=== PATIENT | male | born 1970 | race Two or more races ===

== ENCOUNTER 2025-01-02 13:08 | Inpatient (IN) | payer MEDICAID, OTHER ==
[~2025-01-02] VITALS: Ht 180.3 cm; Wt 65.6 kg
[2025-01-02] MEDS: POTASSIUM CHL 20MEQ/100ML 100 ML IV SCH (04:00)
--- NOTE | 2025-01-02 13:44 | ECG ---
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
[2025-01-02 15:38] LABS: Hematocrit 24.2 % (41.0-53.0); Hemoglobin 8.2 g/dL (13.5-17.5); Mean Corpuscular Hemoglobin 32.2 pg (28.0-32.0); Mean Corpuscular Volume 94.9 fL (80.0-100.0); Nucleated Red Blood Cells % 0.0 %
--- NOTE | 2025-01-02 15:43 | DVH ---
XY CHEST PORTABLE, HISTORY: sob COMPARISON: XR CHEST 1 VIEW on DOS: 12/08/24, XR CHEST 1 VIEW on DOS: 11/07/24, CT [id number] W /O on DOS: 10/12/24 XR CHEST 1 VIEW on DOS: 12/08/24, XR CHEST 1 VIEW on DOS: 11/07/24, CT [id number] W/O on DOS: TECHNICAL DATA: 1 view of the chest was obtained. FINDINGS: Lines and tubes: Right chest wall dialysis catheter is present with tip in the SVC. Cardiomediastinal silhouette: normal Pulmonary vasculature: normal Lung expansion: normal Lung airspace: normal Lung interstitium: normal Pleura: normal Pneumothorax: no Bones: Unremarkable Other: no IMPRESSION: No acute intrathoracic abnormality.
[2025-01-02 15:49] LABS: Alanine Aminotransferase 16 U/L (7-40); Albumin 3.5 g/dL (3.2-4.8); Anion Gap 19 (5-15); BUN/Creatinine Ratio 7.9 (10.0-20.0); Carbon Dioxide 21 mmol/L (20-31); Total Protein 7.4 g/dL (5.7-8.2)
[2025-01-02 15:50] LABS: Alkaline Phosphatase 749 U/L (46-116); Bilirubin, Total 5.4 mg/dL (0.2-1.0); Blood Urea Nitrogen 32 mg/dL (9-23); Calcium 8.7 mg/dL (8.7-10.4); Chloride 93 mmol/L (98-107); Glucose 224 mg/dL (74-106); Sodium 133 mmol/L (136-145)
[2025-01-02 15:56] LABS: Potassium 2.5 mmol/L (3.5-5.1)
--- NOTE | 2025-01-02 16:05 | ED.PDOC ---
History of Present Illness HPI Comments 54-year-old male came in complaining of left foot ulcer pain. History of liver disease chronic kidney disease dialysis. He does get dialyzed on Wednesday. He he also has a wound in the right foot. His podiatric has a referred the patient to the hospital because he wanted debridement of the left foot. Denies any other symptoms. Chief Complaint: Lower Extremity Time Seen by MD: 13:15 Reviewed Notes: Nurses Notes, Medications, Allergies Allergies: Coded Allergies: NO KNOWN ALLERGIES (Unverified , 01/02/25) Information Source: Patient Mode of Arrival: Wheelchair Severity: Moderate Timing: Days Duration: Since onset Past Medical History PAST MEDICAL HISTORY: DM, ESRD, Denies Surgical History: Denies all surgeries Social History Smoker: Non-Smoker Alcohol: Sober Drugs: Denies Drug Use Constitutional: denies: chills, diaphoresis, fatigue, fever, malaise, sweats, weakness, others EENTM: denies: blurred vision, double vision, ear bleeding, ear discharge, ear drainage, ear pain, ear ringing, eye pain, eye redness, hearing loss, mouth pain, mouth swelling, nasal discharge, nose bleeding, nose congestion, nose pain, photophobia, tearing, throat pain, throat swelling, voice changes, others Respiratory: denies: cough, hemoptysis, orthopnea, SOB at rest, shortness of breath, SOB with excertion, stridor, wheezing, others Cardiovascular: denies: chest pain, dizzy spells, diaphoresis, Dyspnea on exertion, edema, irregular heart beat, left arm pain, lightheadedness, palpitations, PND, syncope, others Gastrointestinal: denies: abdomen distended, abdominal pain, blood streaked bowels, constipated, diarrhea, dysphagia, difficulty swallowing, hematemesis, melena, nausea, poor appetite, poor fluid intake, rectal bleeding, rectal pain, vomiting, others Genitourinary: denies: burning, dysuria, flank pain, frequency, hematuria, incontinence, penile discharge, penile sore, pain, testicle pain, testicle swelling, urgency, others Neurological: denies: dizziness, fainting, headache, left sided numbness, left sided weakness, numbness, paresthesia, pre-existing deficit, right sided numbness, right sided weakness, seizure, speech problems, tingling, tremors, weakness, others Musculoskeletal: denies: back pain, gout, joint pain, joint swelling, muscle pain, muscle stiffness, neck pain, others Integumetry: reports: wounds (Bilateral feet); denies: bruises, change in color, change in hair/nails, dryness, laceration, lesions, lumps, rash, others Allergic/Immunocompromised: denies: Difficulty Healing, Frequent Infections, Hives, Itching, others Hematologic/Lymphatic: denies: anemia, blood clots, easy bleeding, easy bruising, swollen glands, others Endocrine: denies: excessive hunger, excessive sweating, excessive thirst, excessive urination, flushing, intolerance to cold, intolerance to heat, unexplained weight gain, unexplained weight loss, others Psychiatric: denies: anxiety, bipolar disorder, depression, hopeless, panic disorder, schizophrenia, sleepless, suicidal, others Physical Exam General Appearance: Moderate Distress HEENT: Normal ENT Inspection, Pharynx Normal, TMs Normal Neck: Full Range of Motion, Non-Tender, Normal, Normal Inspection Respiratory: Chest Non-Tender, Lungs Clear, No Accessory Muscle Use, No Respiratory Distress, Normal Breath Sounds Cardiovascular: No Edema, No JVD, No Murmur, No Gallop, Normal Peripheral Pulses, Regular Rate/Rhythm Breast Exam: Deferred Gastrointestinal: No Organomegaly, Non Tender, No Pulsatile Mass, Normal Bowel Sounds, Soft Genitalia: Deferred Pelvic: Deferred Rectal: Deferred Extremities: No calf tenderness, No pedal edema Musculoskeletal : Apperance: Normal Neurologic: Alert, No Motor Deficits, No Sensory Deficits Cerebellar Function: NOT DONE Reflexes: NOT DONE Skin: Wounds (Bilateral feet) Lymphatic: No Adenopathy Was a procedure done? Was a procedure done?: No Differential Dx Considerations may include: Cellulitis Osteomyelitis X-Ray, Labs, Meds, VS Vital Signs Date Time Temp Pulse Resp B/P (MAP) Pulse Ox O2 Delivery O2 Flow Rate FiO2 01/02/25 16:41 89 16 100 Room Air* 0 21 01/02/25 16:36 98.6 89 16 137/76 (96) 100 98.6 01/02/25 16:36 89 17 100 Room Air 01/02/25 15:18 98.4 74 16 126/66 (86) 96 98.4 01/02/25 13:24 90 01/02/25 13:12 98.1 93 18 110/56 98 98.1 Lab Test 01/02/25 16:35 01/02/25 16:18 01/02/25 15:18 01/02/25 13:31 Range/Units Lactic Acid Level Pending Troponin I High Sensitivity 7 7 </=54 ng/L White Blood Count 18.2 H 4.4-10.8 10^3/uL Red Blood Count 2.55 L 4.5-5.90 10^6/uL Hemoglobin 8.2 L 13.5-17.5 g/dL Hematocrit 24.2 L 41.0-53.0 % Mean Corpuscular Volume 94.9 80.0-100.0 fL Mean Corpuscular Hemoglobin 32.2 H 28.0-32.0 pg Mean Corpuscular Hemoglobin Concent 33.9 32.0-36.0 g/dL Red Cell Distribution Width 14.5 H 11.8-14.3 % Platelet Count 276 140-450 10^3/uL Mean Platelet Volume 7.5 6.9-10.8 fL Neutrophils (%) (Auto) 87.5 H 37.0-80.0 % Lymphocytes (%) (Auto) 6.7 L 10.0-50.0 % Monocytes (%) (Auto) 3.6 0.0-12.0 % Eosinophils (%) (Auto) 1.6 0.0-7.0 % Basophils (%) (Auto) 0.6 0.0-2.0 % Neutrophils # (Auto) 15.9 H 1.6-8.6 10 ^3/uL Lymphocytes # (Auto) 1.2 0.4-5.4 10 ^3/uL Monocytes # (Auto) 0.7 0-1.3 10 ^3/uL Eosinophils # (Auto) 0.3 0-0.8 10 ^3/uL Basophils # (Auto) 0.1 0-0.2 10 ^3/uL Nucleated Red Blood Cells 0.0 % Sodium Level 133 L 136-145 mmol/L Potassium Level 2.5 *L 3.5-5.1 mmol/L Chloride Level 93 L 98-107 mmol/L Carbon Dioxide Level 21 20-31 mmol/L Anion Gap 19 H 5-15 Blood Urea Nitrogen 32 H 9-23 mg/dL Creatinine 4.05 H 0.700-1.30 mg/dL Glomerular Filtration Rate Calc 17 >90 mL/min BUN/Creatinine Ratio 7.9 L 10.0-20.0 Serum Glucose 224 H 74-106 mg/dL Calcium Level 8.7 8.7-10.4 mg/dL Total Bilirubin 5.4 H 0.2-1.0 mg/dL Aspartate Amino Transferase (AST) 38 13-40 U/L Alanine Aminotransferase (ALT) 16 7-40 U/L Alkaline Phosphatase 749 H 46-116 U/L Total Protein 7.4 5.7-8.2 g/dL Albumin 3.5 3.2-4.8 g/dL POC Glucose 250 H 70-106 mg/dl Patient alert. Vitals stable. Has a wound in bilateral feet. Hyperglycemia. Potassium is low. Establish intravenous access. Was given fluids. Increased anion gap. Sepsis. Chronic kidney disease. Possible osteomyelitis. Was given Zosyn. Was given clindamycin. Explained to the patient. Continue monitoring. Time of 1ST Reevaluation: 16:02 Reevaluation 1ST: Unchanged Patient Education/Counseling: Diagnosis, Treatment, Prognosis Family Education/Counseling: No Family Present SEPSIS Sepsis Screen Date sepsis recognized/suspect: Jan 02, 2025 Time Sepsis recognized/suspect: 1311 Recent Procedure: No On Antibiotic Therapy: No Respiratory Rate >20: No Heart Rate >90: Yes Temp<36 C (96.8 F) or >38.3 C: No SBP <90 or MAP <65 mmHG: No New Acute Mental Status Change: No Is the patient on CPAP, BIPAP,: No Physician Orders Chest Portable (01/02/25 14:55) Urinalysis (01/02/25 14:55) Troponin-I Hs (01/02/25 17:55) Piperacillin-Tazob 3.375gm (Zosyn 3.375g (01/02/25 16:15) Clindamycin 600mg Iv (Cleocin Iv) (01/02/25 16:15) Sodium Chloride 0.9% (01/02/25 16:15) Sodium Chloride 0.9% (01/02/25 16:15) Blood Culture (01/02/25 16:22) Lactic Acid W/ Reflex Order (01/02/25 16:22) Vital Signs Date Time Temp Pulse Resp B/P (MAP) Pulse Ox O2 Delivery O2 Flow Rate FiO2 01/02/25 16:41 89 16 100 Room Air* 0 21 01/02/25 16:36 98.6 89 16 137/76 (96) 100 98.6 01/02/25 16:36 89 17 100 Room Air 01/02/25 15:18 98.4 74 16 126/66 (86) 96 98.4 01/02/25 13:24 90 01/02/25 13:12 98.1 93 18 110/56 98 98.1 Laboratory Tests Test 01/02/25 15:18 01/02/25 16:35 White Blood Count 18.2 10^3/uL (4.4-10.8) H Lactic Acid Level Pending Departure 1 Departure Time of Disposition: 16:04 Impression: Primary Impression: Sepsis, unspecified organism Qualified Codes: A41.9 - Sepsis, unspecified organism Additional Impression: Hyperglycemia Disposition: ADMITTED INPATIENT Admit to: Med Surg Condition: Guarded Critical Care Note Critical Care Time?: Yes (90 min-critical care time only) Stability Stability form required: No Heart Score Heart Score: Heart Score Response (Comments) Value History N/A 0 EKG N/A 0 Age N/A 0 Risk Factors N/A 0 Troponin N/A 0 Total 0 GOLDEN KELLY MD Jan 02, 2025 16:05
[2025-01-02] MEDS: SODIUM CHLORIDE 0.9% 1,000 ML IV ONE ×2 (16:15→18:10)
[2025-01-02 16:41] VITALS: PULSE 89; RESP 16; O2SAT 100
[2025-01-02 17:20] LABS: Lactic Acid w/Reflex 2.4 mmol/L (0.4-2.0)
[2025-01-02] MEDS: CLINDAMYCIN 600MG IV 50 ML IV ONE (17:26)
[2025-01-02] MEDS: PANTOPRAZOLE 40 MG/10 ML VIAL INJ IV ONE (17:53)
[2025-01-02] MEDS: ONDANSETRON HCL 4 MG/2 ML VIAL IV ONE (17:53)
[2025-01-02] MEDS: MORPHINE SULFATE 4 MG/ML SYR/VIAL IV ONE (18:01)
[2025-01-02] MEDS: PIPERACILLIN-TAZOB 3.375GM 100 ML IV ONE (20:47)
[2025-01-02 20:59] LABS: Triglycerides 137.0 mg/dL (< 150)
[2025-01-02 21:00] LABS: Magnesium 1.9 mg/dL (1.6-2.6)
[2025-01-02 21:10] LABS: HDL Cholesterol 37.0 mg/dL (40-59)
[2025-01-02 21:23] LABS: Cholesterol 141.0 mg/dL (< 200)
[2025-01-02 21:25] LABS: INR 1.08 (0.9-1.15); Partial Thromboplastin Time 31.0 SEC (24.5-34.5); Prothrombin Time 11.4 sec (9.3-11.8)
[2025-01-02 21:34] LABS: Lipase 41.0 U/L (12-53)
[2025-01-02] MEDS ORDERED: ACETAMINOPHEN 325 MG TAB PO PRN (22:00)
[2025-01-02] MEDS ORDERED: DEXTROSE (50%) 50ML SYRG IV PRN (22:00)
[2025-01-02] MEDS ORDERED: ENOXAPARIN SOD 40 MG/0.4 ML SYRINGE SC SCH (22:00)
[2025-01-02] MEDS: ACCU-CHEK COMFORT CURVE STRIP VI SCH (22:00)
[2025-01-02] MEDS ORDERED: VANCOMYCIN PER PHARMACY 0 MG IV SCH (22:00)
--- NOTE | 2025-01-02 22:18 | DVHHPRES ---
History of Present Illness Resident Creating Document: NATACHA RAO RESIDENT History of Present Illness This is a 54-year-old male with past medical history of diabetes mellitus, ESRD on dialysis (M, W, F), GERD, liver abscess, presented to the ER for worsening left foot ulcer. Patient went for appointment with Dr. Thornton, where he was informed that has foot ulcers infected and was sent to the ER. Patient complained of worsening pain in foot, which he 1st noticed 1 month ago. He was hospitalized for 1 month at the [facility] for a liver abscess, discharged with no antibiotics nor home medication. He also complained of diarrhea since last 2 weeks, reports loose, watery, runny diarrhea, 6-10 times daily, no blood seen. Previous hospitalization: November 2024 for liver abscess in [facility] for 1 month PMHx: Diabetes mellitus, ESRD on HD sessions, GERD, liver abscess s/p op PSHx: Toe amputation, cholecystectomy, biliary stent Social history: Reports smoking half pack per day since the age of 14 years, alcohol use 2 units daily, reports using methamphetamine and marijuana. Lives in home alone. Full code. Next to kin cousin Alize Villegas Home medication: Reportedly no home medication reconciled after discharge from [facility] Allergic history: No known allergy history Patient was examined at bedside today. he is admitted for further evaluation and management Review of Systems Constitutional: Yes: Chills Gastrointestinal: Diarrhea Musculoskeletal: foot pain Allergies: Coded Allergies: NO KNOWN ALLERGIES (Unverified , 01/02/25) Exam Vital Signs Vital Signs Date Time Temp Pulse Resp B/P (MAP) Pulse Ox O2 Delivery O2 Flow Rate FiO2 01/02/25 18:01 89 16 114/67 01/02/25 18:01 99 01/02/25 16:41 Room Air* 0 21 01/02/25 16:36 98.6 98.6 Exam General: Patient alert and oriented in person, place and time. Patient following commands. HEENT: Bilateral scleral icterus. Normocephalic, atraumatic, moist mucous membranes Respiratory/pulmonary: Clear lungs bilaterally, vesicular murmurs present in almost all lung ramirez, no associated crackles or wheezes. Cardiovascular: Normal heart sounds S1 and S2 with no associated murmurs Abdomen: Abdomen nondistended, there is no pain to palpation in any of the abdominal quadrants, no palpable masses. Extremities: Inspection of bilateral upper extremity: Multiple scabbing wounds. Inspection bilateral lower extremity: Loss of hair, bilateral plantar heel ulcers. Left foot heel wound is necrotic, dark with eschar, surrounded by erythema. Eschar on left great toe wound. Temperature same in bilateral lower extremities. Skin: No rashes or pruritus, there is no sacral edema present at this time. Neurological: Intact cranial nerves with no focal neurologic deficits Labs/Xrays Labs Test 01/02/25 21:58 01/02/25 20:47 01/02/25 18:28 01/02/25 15:18 Range/Units Lactic Acid Level 1.8 0.4-2.0 mmol/L Prothrombin Time 11.4 9.3-11.8 sec Prothrombin Time INR 1.08 0.9-1.15 Activated Partial Thromboplast Time 31.0 24.5-34.5 SEC Hemoglobin A1c 5.4 <5.7 % A1C Serum Osmolality 301 H 278-298 mOsm/kg Phosphorus Level 5.1 2.4-5.1 mg/dL Magnesium Level 1.9 1.6-2.6 mg/dL Troponin I High Sensitivity 7 </=54 ng/L C-Reactive Protein High Sensitivity 19.47 H <1.0 mg/dL Triglycerides Level 137 < 150 mg/dL Cholesterol Level 141 < 200 mg/dL LDL Cholesterol 85 < 100 mg/dL HDL Cholesterol 37 L 40-59 mg/dL Lipase 41 12-53 U/L Vitamin B12 Level 1072 H 211-911 pg/mL Vitamin D 25-Hydroxy 32.0 30.0-100 ng/mL Thyroid Stimulating Hormone (TSH) 4.95 H 0.55-4.78 uIU/mL White Blood Count 18.2 H 4.4-10.8 10^3/uL Red Blood Count 2.55 L 4.5-5.90 10^6/uL Hemoglobin 8.2 L 13.5-17.5 g/dL Hematocrit 24.2 L 41.0-53.0 % Mean Corpuscular Volume 94.9 80.0-100.0 fL Mean Corpuscular Hemoglobin 32.2 H 28.0-32.0 pg Mean Corpuscular Hemoglobin Concent 33.9 32.0-36.0 g/dL Red Cell Distribution Width 14.5 H 11.8-14.3 % Platelet Count 276 140-450 10^3/uL Mean Platelet Volume 7.5 6.9-10.8 fL Neutrophils (%) (Auto) 87.5 H 37.0-80.0 % Lymphocytes (%) (Auto) 6.7 L 10.0-50.0 % Monocytes (%) (Auto) 3.6 0.0-12.0 % Eosinophils (%) (Auto) 1.6 0.0-7.0 % Basophils (%) (Auto) 0.6 0.0-2.0 % Neutrophils # (Auto) 15.9 H 1.6-8.6 10 ^3/uL Lymphocytes # (Auto) 1.2 0.4-5.4 10 ^3/uL Monocytes # (Auto) 0.7 0-1.3 10 ^3/uL Eosinophils # (Auto) 0.3 0-0.8 10 ^3/uL Basophils # (Auto) 0.1 0-0.2 10 ^3/uL Nucleated Red Blood Cells 0.0 % Sodium Level 133 L 136-145 mmol/L Potassium Level 2.5 *L 3.5-5.1 mmol/L Chloride Level 93 L 98-107 mmol/L Carbon Dioxide Level 21 20-31 mmol/L Anion Gap 19 H 5-15 Blood Urea Nitrogen 32 H 9-23 mg/dL Creatinine 4.05 H 0.700-1.30 mg/dL Glomerular Filtration Rate Calc 17 >90 mL/min BUN/Creatinine Ratio 7.9 L 10.0-20.0 Serum Glucose 224 H 74-106 mg/dL Calcium Level 8.7 8.7-10.4 mg/dL Total Bilirubin 5.4 H 0.2-1.0 mg/dL Aspartate Amino Transferase (AST) 38 13-40 U/L Alanine Aminotransferase (ALT) 16 7-40 U/L Alkaline Phosphatase 749 H 46-116 U/L Total Protein 7.4 5.7-8.2 g/dL Albumin 3.5 3.2-4.8 g/dL Test 01/02/25 13:31 Range/Units POC Glucose 250 H 70-106 mg/dl SEPSIS Sepsis Screen Date sepsis recognized/suspect: Jan 02, 2025 Time Sepsis recognized/suspect: 1640 Recent Procedure: No On Antibiotic Therapy: No Respiratory Rate >20: No Heart Rate >90: No Temp<36 C (96.8 F) or >38.3 C: No SBP <90 or MAP <65 mmHG: No New Acute Mental Status Change: No Is the patient on CPAP, BIPAP,: No Physician Orders Chest Portable (01/02/25 14:55) Sodium Chloride 0.9% (01/02/25 16:15) Blood Culture (01/02/25 16:22) Drug Screen (01/02/25 20:24) Urinalysis (01/02/25 20:24) Covid19 Antigen Cristina (01/02/25 ) Mrsa Screen (01/02/25 20:26) * Wound Consult (01/02/25 ) Wound Culture W/ Gs (01/02/25 20:29) Admit (01/02/25 21:51) Allergies (01/02/25:51) Code Status (01/02/25 21:51) 0.9% Ns 1000 Ml (01/02/25 22:00) Zinc Sulfate (01/03/25 10:00) Ascorbic Acid Tablet (Vitamin C Tablet) (01/02/25 22:00) Complete Blood Count (01/03/25 04:00) Comprehensive Metabolic Panel (01/03/25 04:00) Npo (Nothing By Mouth) Diet (01/03/25 Breakfast) Condition: Serious (01/02/25 21:51) Acetaminophen Tablet (Tylenol Tablet) (01/02/25 22:00) Lovenox 40mg (01/02/25 22:00) Oxygen By Nasal Cannula (01/02/25 21:51) Stat Ekg For Chest Pain (01/02/25 21:51) Notify Md Of Changes From Base (01/02/25 21:51) Truck Repair Service Estimator For 24 Hours (01/02/25 21:51) Emergency Dysrhythmia Protocol (01/02/25 21:51) Rhythm Strips Once Every Shift (01/02/25 21:51) Potassium Chl Adama Kcl (01/02/25 22:00) Zosyn Extended Infusion (01/02/25 22:00) Vancomycin (01/02/25 22:00) Glucose Blood (Accu-Chek Comfort Curve T (01/02/25 22:00) Mild Sliding Scale (01/02/25 22:00) Dextrose 50% Syringe (01/02/25 22:00) NS (01/02/25 22:00) Stool Bacterial Culture (01/02/25 21:51) Stool Wbc (01/02/25 21:51) LIVER (01/02/25 21:51) *Podiatry Consult Musson(Dvmg) (01/02/25 21:51) Electrocardigram (01/02/25 21:51) Electrocardigram (01/02/25 22:51) Electrocardigram (01/03/25 00:51) Reticulocyte Count (01/02/25 21:51) Haptoglobin (01/02/25 21:51) Ferritin (01/02/25 21:51) Iron Panel (01/02/25 21:51) Folate (Folic Acid) (01/02/25 21:51) Ct L Foot Wo Contrast (01/02/25 21:51) Vital Signs Date Time Temp Pulse Resp B/P (MAP) Pulse Ox O2 Delivery O2 Flow Rate FiO2 01/02/25 18:01 89 16 114/67 01/02/25 18:01 89 16 114/67 (83) 99 01/02/25 16:41 89 16 100 Room Air* 0 21 01/02/25 16:36 98.6 89 16 137/76 (96) 100 98.6 01/02/25 16:36 89 17 100 Room Air 01/02/25 15:18 98.4 74 16 126/66 (86) 96 98.4 Laboratory Tests Test 01/02/25 15:18 01/02/25 16:35 01/02/25 18:28 01/02/25 20:47 White Blood Count 18.2 10^3/uL (4.4-10.8) H Lactic Acid Level 2.4 mmol/L (0.4-2.0) *H 2.4 mmol/L (0.4-2.0) *H 1.8 mmol/L (0.4-2.0) Medications Medications Dose Ordered Sig/Vargas Route Start Time Stop Time Status Last Admin Dose Admin Clindamycin Phosphate 50 ml @ 50 mls/hr ONCE ONCE IV 01/02/25 16:15 01/02/25 17:14 DC 01/02/25 17:26 50 MLS/HR Morphine Sulfate 4 mg ONCE ONCE IV 01/02/25 17:30 01/02/25 17:31 DC 01/02/25 18:01 4 MG Ondansetron HCl 4 mg ONCE ONCE IV 01/02/25 17:30 01/02/25 17:31 DC 01/02/25 17:53 4 MG Pantoprazole Sodium 40 mg ONCE ONCE IV 01/02/25 17:30 01/02/25 17:31 DC 01/02/25 17:53 40 MG Piperacillin Sod/ Tazobactam Sod 100 ml @ 100 mls/hr ONCE ONCE IV 01/02/25 16:15 01/02/25 17:14 DC 01/02/25 20:47 100 MLS/HR Sodium Chloride 1,000 ml @ 150 mls/hr Q6H40M ONCE IV 01/02/25 16:15 01/02/25 22:54 01/02/25 19:10 150 MLS/HR Sodium Chloride 1,000 ml @ 1,000 mls/hr Q1H ONCE IV 01/02/25 16:15 01/02/25 17:14 DC 01/02/25 16:15 1,000 MLS/HR Assessment/Plan Assessment/Plan Severe Sepsis due to below Bilateral foot ulcers with cellulitis and probable osteomyelitis Rule out PAD Diabetic foot ulcer Lactic acidosis, neutrophilic leukocytosis Wound culture, Blood culture, MRSA screening ordered Arterial Doppler ordered CT left foot shows soft tissue gas, stranding, and swelling about the plantar aspect of the forefoot. IV vancomycin, Zosyn, synchronized with HD sessions IV fluid maintenance, holding off bolus to avoid fluid overload in context of ESRD with dialysis Wound care consulted Podiatry consulted History of liver abscess Acute gastroenteritis Transaminitis with elevated ALP Labs showed neutrophilic leukocytosis Ultrasound liver shows stent in the common bile duct. Gas is seen in the left hepatic lobe, which may be referable to pneumobilia IV fluids IV ceftriaxone 1 g daily IV metronidazole 500 mg 3 times daily Monitor electrolytes, avoid opioids Clear liquid diet; Advance diet as tolerated Hepatitis panel ordered Normocytic normochromic anemia, likely due to anemia of chronic disease Low iron, TIBC and% saturation. Normal vitamin B12 and increased retic count ESRD on hemodialysis Hypovolemic Hyponatremia IV fluid maintenance, holding off bolus to avoid fluid overload in context of CKD with dialysis Discussed avoiding nephrotoxins like NSAIDS, contrast Low salt diet, maintain hydration Repeat BMP Diabetes mellitus type 2 Hyperglycemia Sliding scale insulin A1c 5.4 Monitor blood glucose Diabetes education Advanced to Diabetic diet when appropriate Polysubstance abuse Toxicology screen pending Counseled for more than 12 minutes to quit substance abuse and offered resources DIET: NPO DVT PROPHYLAXIS: Lovenox GI PROPHYLAXIS: Protonix CODE STATUS: Goals of care discussed with patient at bedside for more than 38 minutes. Full code DISPOSITION: Med/surge Patient's status and plan discussed with the patient. Case discussed with Dr. Bravo Plan discussed with: Patient, Other (Nurses) My Orders Orders - NATACHA RAO RESIDENT Procedure Category Date Status Time Drug Screen LAB 01/02/25 Logged 20:24 Urinalysis LAB 01/02/25 Logged 20:24 Covid19 Antigen Cristina LAB 01/02/25 In Process Mrsa Screen [place] 01/02/25 In Process 20:26 * Wound Consult CONS 01/02/25 Transmitted Wound Culture W/ Gs [place] 01/02/25 Logged 20:29 Admit ADMIT 01/02/25 Verified 21:51 Allergies PAULO 01/02/25 Verified 21:51 Code Status CODE 01/02/25 Verified 21:51 0.9% Ns 1000 Ml PHA 01/02/25 Verified 22:00 Zinc Sulfate PHA 01/03/25 Verified 10:00 Ascorbic Acid Tablet PHA 01/02/25 Verified (Vitamin C Tablet) 22:00 Complete Blood Count LAB 01/03/25 Verified 04:00 Comprehensive LAB 01/03/25 Verified Metabolic Panel 04:00 Npo (Nothing By DIET 01/03/25 Verified Mouth) Diet Breakfast Condition: Serious [facility] 01/02/25 Verified 21:51 Acetaminophen Tablet PHA 01/02/25 Verified (Tylenol Tablet) 22:00 Lovenox 40mg PHA 01/02/25 Verified 22:00 Oxygen By Nasal RT 01/02/25 Verified Cannula 21:51 Stat Ekg For Chest [facility] 01/02/25 Verified Pain 21:51 Notify Md Of Changes [facility] 01/02/25 Verified From Base 21:51 Truck Repair Service Estimator For [facility] 01/02/25 Verified 24 Hours 21:51 Emergency Dysrhythmia [facility] 01/02/25 Verified Protocol 21:51 Rhythm Strips Once [facility] 01/02/25 Verified Every Shift 21:51 Potassium Chl Adama PHA 01/02/25 Verified KCL 22:00 Zosyn Extended [facility] 01/02/25 Verified Infusion 22:00 Vancomycin PHA 01/02/25 Verified 22:00 Glucose Blood [facility] 01/02/25 Verified (Accu-Chek Comfort 22:00 Mild Sliding Scale [facility] 01/02/25 Verified 22:00 Dextrose 50% Syringe PH[facility] 01/02/25 Verified 22:00 NS PHA 01/02/25 Verified 22:00 Stool Bacterial [place] 01/02/25 Verified Culture 21:51 Stool Wbc LAB 01/02/25 Verified 21:51 LIVER US 01/02/25 Verified 21:51 *Podiatry Consult CONS 01/02/25 Verified Musson(Dvmg) 21:51 Electrocardigram EKG 01/02/25 Verified 21:51 Electrocardigram EKG 01/02/25 Verified 22:51 Electrocardigram EKG 01/03/25 Verified 00:51 Reticulocyte Count LAB 01/02/25 Verified 21:51 Haptoglobin LAB 01/02/25 Verified 21:51 Ferritin LAB 01/02/25 Verified 21:51 Iron Panel LAB 01/02/25 Verified 21:51 Folate (Folic Acid) LAB 01/02/25 Verified 21:51 Ct L Foot Wo Contrast CT 01/02/25 Verified 21:51 Date of Service: Jan 02, 2025 Billing Provider: PATRICIA GIVENS MD Common Visit Codes: 31401-EHGLJGO INP/OBS CARE (HIGH) Secondary Visit Codes: 51137-[id number] CARE PLAN 30 MINUTES NATACHA RAO RESIDENT Jan 02, 2025 22:18 TO MCDERMOTT RESIDENT Jan 03, 2025 08:08
[2025-01-02] MEDS: SODIUM CHLORIDE 0.9% 500 ML IV ONE (22:31)
[2025-01-02] MEDS: ASCORBIC ACID 500 MG TAB PO SCH (22:33)
[2025-01-02 22:56] LABS: Ferritin 20.2 ng/mL (22-322)
[2025-01-02 23:08] LABS: Iron 30.0 ug/dL (65-175); Total Iron Binding Capacity 159.0 ug/dL (250-425)
[2025-01-02 23:13] LABS: COVID19 ANTIGEN SOFIA FIA NEGATIVE (NEGATIVE)
--- NOTE | 2025-01-02 23:50 | DVH ---
ULTRASOUND DOPPLER CLINICAL HISTORY: Sepsis with history of liver abscess TECHNIQUE: Doppler examination of the abdomen was performed. COMPARISON: CT ABDOMEN PELVIS WITH on DOS: 12/08/24, US ABDOMEN on DOS: 12/08/24, US GALLBLADDER on DOS: 11/08/24, CT ABDOMEN PELVIS WITHOUT on DOS: 11/08/24, CT [id number] W/O on DOS: 10/12/24 FINDINGS: The liver measures 14.7 cm. Small hyperechoic foci are seen within the liver suggesting gas . No focal lesion. Prior cholecystectomy. The common bile duct measures 7 mm, slightly dilated. A stent is seen in the c ommon bile duct. Visualized portions of the pancreas are unremarkable. The right kidney measures 8.5 cm without hydronephrosis, stones, or renal mass. IMPRESSION: 1. Prior cholecystectomy with stent seen in the common bile duct. Gas is seen in the left hepatic lob e, which may be referable to pneumobilia, though portal venous gas cannot be excluded. Consider CT i n further assessment as clinically indicated.
[2025-01-03] VITALS (9 sets, daily range): BP systolic 101–141; BP diastolic 60–82; PULSE 60–97; RESP 16–100; TEMP 97.6–97.8; O2SAT 99–100
--- NOTE | 2025-01-03 00:16 | DVH ---
EXAM: CT CT L FOOT WO CONTRAST HISTORY: Diabetic foot ulcer, rule out osteomyelitis COMPARISON: CT LOWER EXTREMITY WITHOUT DOMENICO on DOS: 11/07/24, XR FOOT 3+ VIEWS on DOS: 03/17/22 TECHNIQUE: Noncontrast axial CT images of the left foot were performed. Sagittal and coronal reformat savage images were obtained. This CT exam was performed using one or more of the following dose reductio n techniques: Automated exposure control, adjustment of the mA and/or kv according to patient size, o r the use of iterative reconstruction techniques. Radiation Dose Information: CT Dose: CTDI volume is 7.75 mGy. Dose-length product is 2.73 mGy*cm FINDINGS: There is soft tissue gas, stranding, and swelling about the plantar aspect of the forefoot. No defin ite osseous erosion is seen. No acute displaced fracture. The alignment appears maintained. IMPRESSION: 1. Findings as above suggestive of infectious / inflammatory process involving the plantar aspect of the foot. No definite osseous erosion, though MRI would be more sensitive for osteomyelitis as clini kathia indicated. Necrotizing fasciitis cannot be excluded on the basis of CT. Further clinical moose elation is suggested.
[2025-01-03] MEDS: SODIUM CHLORIDE 0.9% 1,000 ML IV SCH (00:44)
[2025-01-03 01:00] LABS: Urine Protein, UAD 2+ (Negative)
[2025-01-03] MEDS: PIPERACILLIN-TAZOB 3.375GM 100 ML IV SCH (01:00)
[2025-01-03] MEDS: InsuLIN REG 1unit/0.01ml Soln (100units/ml) SC SCH (01:04)
[2025-01-03 01:47] LABS: Cannabinoid Screen, Urine Neg (NEGATIVE); Opiate Scree,Urine Neg (NEGATIVE)
[2025-01-03 01:50] LABS: Amphetamine Screen, Urine Pos (NEGATIVE); Barbiturate Scree,Urine Neg (NEGATIVE); Benzodiazephine Screen, Urine Neg (NEGATIVE); Cocaine Screen, Urine Neg (NEGATIVE); Phencyclidine Screen, Urine Neg (NEGATIVE)
[2025-01-03] MEDS ORDERED: MORPHINE SULFATE INJ 2 MG/ml SYRG IV PRN (02:15)
[2025-01-03 04:35] LABS: Nucleated Red Blood Cells % 0.1 %
[2025-01-03 04:38] LABS: Hematocrit 25.6 % (41.0-53.0); Hemoglobin 8.1 g/dL (13.5-17.5); Mean Corpuscular Hemoglobin 32.6 pg (28.0-32.0); Mean Corpuscular Volume 103.7 fL (80.0-100.0)
[2025-01-03 04:46] LABS: Alanine Aminotransferase 15 U/L (7-40); Anion Gap 18 (5-15); BUN/Creatinine Ratio 8.9 (10.0-20.0); Chloride 101 mmol/L (98-107); Glucose 102 mg/dL (74-106); Total Protein 6.3 g/dL (5.7-8.2)
[2025-01-03 04:56] LABS: Albumin 3.1 g/dL (3.2-4.8); Alkaline Phosphatase 696 U/L (46-116); Bilirubin, Total 4.5 mg/dL (0.2-1.0); Blood Urea Nitrogen 33 mg/dL (9-23); Calcium 8.2 mg/dL (8.7-10.4); Carbon Dioxide 16 mmol/L (20-31); Sodium 135 mmol/L (136-145)
[2025-01-03 04:57] LABS: Potassium 2.5 mmol/L (3.5-5.1)
--- NOTE | 2025-01-03 09:47 | DVHCONRES ---
Date Seen: Jan 03, 2025 Reason for Consultation Left foot wound History of Present Illness This is a 54-year-old male with past medical history of diabetes mellitus, ESRD on dialysis (M, W, F), GERD, liver abscess, presented to the ER for worsening left foot ulcer. Patient went for appointment with Dr. Skinner, where he was informed that has foot ulcers infected and was sent to the ER. Patient complained of worsening pain in foot, which he 1st noticed 1 month ago. He was hospitalized for 1 month at the [facility] for a liver abscess, discharged with no antibiotics nor home medication. He also complained of diarrhea since last 2 weeks, reports loose, watery, runny diarrhea, 6-10 times daily, no blood seen. Past Medical History See H&P Past Surgical History See H&P Family History: Diabetes mellitus G8 MOTHER, Allergies: Coded Allergies: NO KNOWN ALLERGIES (Unverified , 01/02/25) Home Meds No Active Prescriptions or Reported Meds Current Medications Current Medications Medications (Trade) Dose Ordered Sig/Vargas Route PRN Reason Start Time Stop Time Status Last Admin Sodium Chloride 1,000 ml @ 120 mls/hr Q8H20M IV 01/02/25 22:00 01/03/25 06:24 Zinc Sulfate 220 mg DAILY PO 01/03/25 10:00 Ascorbic Acid (Vitamin C Tablet) 500 mg BID PO 01/02/25 22:00 01/03/25 01:05 Acetaminophen (Tylenol Tablet) 650 mg Q6HP PRN PO PAIN SCALE 1-3 OR TEMP>100.4 01/02/25 22:00 Enoxaparin Sodium (Lovenox) 40 mg DAILY SC 01/02/25 22:00 01/02/25 22:36 DC Potassium Chloride 100 ml @ 50 mls/hr Q2H IV 01/02/25 22:00 01/03/25 03:59 DC 01/03/25 06:00 Piperacillin Sod/ Tazobactam Sod 100 ml @ 25 mls/hr Q12H IV 01/03/25 01:00 Vancomycin HCl 0 ml @ 0 mls/hr UD IV 01/02/25 22:00 Diagnostic Test (Pha) (Accu-Chek Comfort Curve T) 1 strip ACHS 01/02/25 22:00 01/02/25 22:00 Insulin Human Regular (InsuLIN R) ACHS SC 01/02/25 22:00 01/03/25 01:04 Dextrose 50 ml UD PRN IV Blood Sugar LESS THAN 60 01/02/25 22:00 Heparin Sodium (Porcine) 5,000 units Q12HR SC 01/03/25 10:00 Morphine Sulfate 2 mg Q6HPRN PRN IV SEVERE PAIN (7-10 PAIN SCALE) 01/03/25 02:15 Vital Signs Vital Signs Date Time Temp Pulse Resp B/P (MAP) Pulse Ox O2 Delivery O2 Flow Rate FiO2 01/03/25 05:00 97.6 71 18 141/82 (101) 99 97.6 01/03/25 04:57 Room Air* 0 21 Physical Exam Dermatological: Skin is dry with mild erythema and some maceration around the wound site No gross deformities noted Mild non-pitting edema present bilaterally Left foot plantar wound with fluctuance and purulent drainage Vascular: Dorsalis pedis and posterior tibial pulses are 1+ bilaterally Capillary refill is under 2 seconds Skin temperature is warm bilaterally Neurologic: Protective sensation is absent on the plantar forefoot bilaterally Monofilament testing reveals decreased sensation in multiple plantar sites Musculoskeletal: Range of motion at the ankle and MTP joints is within normal limits. Strength is 5/5 in all tested muscle groups. Gait is antalgic due to offloading of the affected limb. Labs/Diagnostic Data Labs Test 01/03/25 08:30 01/03/25 03:48 01/03/25 00:42 01/03/25 00:00 Range/Units White Blood Count 17.7 H 4.4-10.8 10^3/uL Red Blood Count 2.47 L 4.5-5.90 10^6/uL Hemoglobin 8.1 L 13.5-17.5 g/dL Hematocrit 25.6 L 41.0-53.0 % Mean Corpuscular Volume 103.7 #H 80.0-100.0 fL Mean Corpuscular Hemoglobin 32.6 H 28.0-32.0 pg Mean Corpuscular Hemoglobin Concent 31.5 L 32.0-36.0 g/dL Red Cell Distribution Width 15.2 H 11.8-14.3 % Platelet Count 258 140-450 10^3/uL Mean Platelet Volume 7.2 6.9-10.8 fL Neutrophils (%) (Auto) 80.5 H 37.0-80.0 % Lymphocytes (%) (Auto) 11.5 10.0-50.0 % Monocytes (%) (Auto) 3.6 0.0-12.0 % Eosinophils (%) (Auto) 3.8 0.0-7.0 % Basophils (%) (Auto) 0.6 0.0-2.0 % Neutrophils # (Auto) 14.2 H 1.6-8.6 10 ^3/uL Lymphocytes # (Auto) 2.0 0.4-5.4 10 ^3/uL Monocytes # (Auto) 0.6 0-1.3 10 ^3/uL Eosinophils # (Auto) 0.7 0-0.8 10 ^3/uL Basophils # (Auto) 0.1 0-0.2 10 ^3/uL Nucleated Red Blood Cells 0.1 % Sodium Level 135 L 136-145 mmol/L Chloride Level 101 98-107 mmol/L Carbon Dioxide Level 16 L 20-31 mmol/L Anion Gap 18 H 5-15 Blood Urea Nitrogen 33 H 9-23 mg/dL Creatinine 3.72 H 0.700-1.30 mg/dL Glomerular Filtration Rate Calc 19 >90 mL/min BUN/Creatinine Ratio 8.9 L 10.0-20.0 Serum Glucose 102 # 74-106 mg/dL Calcium Level 8.2 L 8.7-10.4 mg/dL Total Bilirubin 4.5 H 0.2-1.0 mg/dL Aspartate Amino Transferase (AST) 35 13-40 U/L Alanine Aminotransferase (ALT) 15 7-40 U/L Alkaline Phosphatase 696 H 46-116 U/L Total Protein 6.3 5.7-8.2 g/dL Albumin 3.1 L 3.2-4.8 g/dL POC Glucose 203 H 70-106 mg/dl Urine Color Yellow Yellow Urine Clarity Clear Clear Urine pH 6.0 5.0-9.0 Urine Specific [place] 1.011 1.001-1.035 Urine Protein 2+ H Negative Urine Ketones Negative Negative Urine Blood 1+ H Negative /uL Urine Nitrite Negative Negative Urine Bilirubin Negative Negative Urine Urobilinogen Normal Negative mg/dL Urine Leukocyte Esterase Negative Negative /uL Urine RBC 6 0 - 3 /hpf Urine Microscopic WBC 4 H 0-3 /HPF Urine Squamous Epithelial Cells Few <5 /hpf Urine Bacteria None seen None Seen /hpf Urine Glucose 4+ H Normal mg/dL Urine Opiates Screen Neg NEGATIVE Urine Fentanyl Screen Neg NEGATIVE Urine Barbiturates Screen Neg NEGATIVE Urine Phencyclidine Screen Neg NEGATIVE Urine Amphetamines Screen Pos NEGATIVE Urine Benzodiazepines Screen Neg NEGATIVE Urine Cocaine Screen Neg NEGATIVE Urine Cannabinoids Screen Neg NEGATIVE Test 01/02/25 22:47 01/02/25 21:58 01/02/25 20:47 01/02/25 18:28 Range/Units Reticulocyte Count (auto) 4.13 H 0.5-1.5 % Influenza Type A Antigen Negative Negative Influenza Type B Antigen Negative Negative SARS-CoV-2 Antigen (Rapid) Negative NEGATIVE Lactic Acid Level 1.8 0.4-2.0 mmol/L Prothrombin Time 11.4 9.3-11.8 sec Prothrombin Time INR 1.08 0.9-1.15 Activated Partial Thromboplast Time 31.0 24.5-34.5 SEC Hemoglobin A1c 5.4 <5.7 % A1C Serum Osmolality 301 H 278-298 mOsm/kg Phosphorus Level 5.1 2.4-5.1 mg/dL Magnesium Level 1.9 1.6-2.6 mg/dL Ferritin 20.2 L 22-322 ng/mL Troponin I High Sensitivity 7 </=54 ng/L C-Reactive Protein High Sensitivity 19.47 H <1.0 mg/dL Triglycerides Level 137 < 150 mg/dL Cholesterol Level 141 < 200 mg/dL LDL Cholesterol 85 < 100 mg/dL HDL Cholesterol 37 L 40-59 mg/dL Lipase 41 12-53 U/L Vitamin B12 Level 1072 H 211-911 pg/mL Vitamin D 25-Hydroxy 32.0 30.0-100 ng/mL Folic Acid 13.14 >5.38 ng/mL Thyroid Stimulating Hormone (TSH) 4.95 H 0.55-4.78 uIU/mL Test 01/02/25 15:18 Range/Units Iron Level 30 L 65-175 ug/dL Total Iron Binding Capacity 159 L 250-425 ug/dL Percent Iron Saturation 18.9 L 20-55 % Problems(with codes): (1) Hyperglycemia (2) Sepsis, unspecified organism Plan/Recommendation ASSESSMENT: Patient is a 54 year old seen on the floor for a worsening ulcer PLAN: - The patients chart was reviewed, clinical findings were discussed with the patient, the etiologies of the conditions were discussed in detail, and a treatment plan was agreed to at this time, with both oral and written instructions provided. - reviewed advanced imaging - discussed plan is to perform an incision and drainage - patient has been NPO since midnight - take him to the OR today - we will get cultures in the OR - can weightbear as tolerated in postoperative shoe All questions were answered and concerns addressed to the patient's satisfaction. The patient was given the phone number to the clinic and was told how to make contact with the clinic should any concerns or questions arise. Patient understands that if any questions or concerns arise prior to the next appointment, we should be contacted immediately. FOLLOW-UP: Continue to follow while inpatient Plan discussed with: Patient Visit Coding Podiatry Date of Service if different f: Jan 03, 2025 Billing Provider: MANUEL SKINNER DPM Podiatry Common Visit Codes: CONSULT ONLY Podiatry Consult Codes: [id number]/[id number] NEW/EST HI 80 MANUEL SKINNER DPM Jan 03, 2025 09:47
[2025-01-03] MEDS: HEPARIN SODIUM (PORCINE) 5000 UNITS/ML 1ML VIAL SC SCH (10:00)
[2025-01-03] MEDS: ZINC SULFATE 220mg CAP or TAB PO SCH (10:00)
--- NOTE | 2025-01-03 10:10 | DVH ---
Bilateral Lower Extremity Arterial Duplex Clinical History: PAD Comparison: US VENOUS EXTREMITY LOWER LTD on DOS: 11/08/24, RIGHT US VENOUS EXTREMITY UNILAT on DOS: Technique: Duplex Doppler evaluation including color Doppler and spectral/pulsed waveform analysis of the lower extremity arteries was performed. Findings: RIGHT: Peak systolic velocities are as follows: 397 cm/sec in the dorsalis pedis. Nonvisualization of flow in the right posterior tibial artery. All other velocities are less than 150 cm/sec. The waveforms are monophasic with diastolic flow. LEFT: Peak systolic velocities are as follows: Less than 150 cm/sec. Dorsalis pedis is not visualized. The waveforms are monophasic with diastolic flow. IMPRESSION: Greater than 75% stenosis of the right dorsalis pedis based on peak systolic velocity criteria. Nonvisualization of the right posterior tibial artery and left dorsalis pedis. Bilateral monophasic arterial waveforms are suggestive of underlying peripheral arterial disease. REFERENCE VALUES, [facility]) vascular Imaging Lab Criteria: Peak systolic velocity rang es (in cm/sec) are as follows: <150 cm/s - <20 % stenosis 150-200 cm/s - 20-49% stenosis 200-300 cm/s - 50-75% stenosis >300 cm/s -> 75% stenosis
[2025-01-03] MEDS: POTASSIUM CHL 20MEQ/100ML 100 ML IV ONE (10:23)
--- NOTE | 2025-01-03 11:21 | DVHPNRES ---
Progress Note Date Seen: Jan 03, 2025 Resident Creating Document: TAE AWAD RESIDENT Medical Necessity Reason Pt with a Central, PICC or Fol: No Subjective Review of Systems Patient is 54-year-old male with past medical history of diabetes mellitus, ESRD on dialysis (M, W, F), GERD, liver abscess, presented to the ER for worsening left foot ulcer. Patient went for appointment with Dr. Thornton, where he was informed that has foot ulcers infected and was sent to the ER. Patient complained of worsening pain in foot, which he 1st noticed 1 month ago. He was hospitalized for 1 month at the [facility] for a liver abscess, discharged with no antibiotics nor home medication. He also complained of diarrhea since last 2 weeks, reports loose, watery, runny diarrhea, 6-10 times daily, no blood seen. Patient's lab workup revealed leukocytosis with WBC 18.2, anemia with a hemoglobin 8.2, hypokalemia potassium 2.5, increased anion gap 19, serum creatinine 4.05, GFR 17, BUN 33, lactic acidosis with lactic acid 2.4, 30, ferritin 20.2, TIBC 159, UDS positive for amphetamine. Patient tested negative for influenza type a and B, COVID-19, hepatitis-B surface antigen, hepatitis-C antibody. CT left foot revealed- Findings as above suggestive of infectious / inflammatory process involving the plantar aspect of the foot. No definite osseous erosion, though MRI would be more sensitive for osteomyelitis as clinically indicated. Necrotizing fasciitis cannot be excluded on the basis of CT. Ultrasound of the liver revealed- Prior cholecystectomy with stent seen in the common bile duct. Gas is seen in the left hepatic lobe, which may be referable to pneumobilia, though portal venous gas cannot be excluded. Arterial Doppler of the bilateral lower extremity revealed-Greater than 75% stenosis of the right dorsalis pedis based on peak systolic velocity criteria. Nonvisualization of the right posterior tibial artery and left dorsalis pedis. Bilateral monophasic arterial waveforms are suggestive of underlying peripheral arterial disease. Previous hospitalization: November 2024 for liver abscess in [facility] for 1 month PMHx: Diabetes mellitus, ESRD on HD sessions, GERD, liver abscess s/p op PSHx: Toe amputation, cholecystectomy, biliary stent Social history: Reports smoking half pack per day since the age of 14 years, alcohol use 2 units daily, reports using methamphetamine and marijuana. Lives in home alone. Full code. Next to kin cousin Alize Villegas Home medication: Reportedly no home medication reconciled after discharge from [facility] Allergic history: No known allergy history Patient was seen today at bedside. Labs and chart reviewed. Patient has a wound on the bilateral foot especially gangrenous change in the left food, absence of bilateral ADP. Patient was seen by Podiatry Dr. Wynn, pending for surgical intervention. Pending blood culture, wound culture, stool bacterial culture, respiratory culture, C diff, MRSA screening Objective vital signs Vital Sign Date Time Temp Pulse Resp B/P (MAP) Pulse Ox O2 Delivery O2 Flow Rate FiO2 01/03/25 08:57 97.6 71 18 112/65 (81) 100 97.6 01/03/25 04:57 Room Air* 0 21 Total Intake and Output 01/02/25 01/02/25 01/03/25 15:00 23:00 07:00 Intake Total 1000 ml 0 ml Balance 1000 ml 0 ml medications Current Medications Medications Dose Ordered Sig/Vargas Route Start Time Stop Time Status Last Admin Dose Admin Sodium Chloride 1,000 ml @ 120 mls/hr Q8H20M IV 01/02/25 22:00 01/03/25 06:24 120 MLS/HR Zinc Sulfate 220 mg DAILY PO 01/03/25 10:00 Ascorbic Acid 500 mg BID PO 01/02/25 22:00 01/03/25 01:05 500 MG Acetaminophen 650 mg Q6HP PRN PO 01/02/25 22:00 Piperacillin Sod/ Tazobactam Sod 100 ml @ 25 mls/hr Q12H IV 01/03/25 01:00 Vancomycin HCl 0 ml @ 0 mls/hr UD IV 01/02/25 22:00 Diagnostic Test (Pha) 1 strip ACHS 01/02/25 22:00 01/03/25 10:24 1 STRIP Insulin Human Regular ACHS SC 01/02/25 22:00 01/03/25 01:04 4 UNITS Dextrose 50 ml UD PRN IV 01/02/25 22:00 Heparin Sodium (Porcine) 5,000 units Q12HR SC 01/03/25 10:00 Morphine Sulfate 2 mg Q6HPRN PRN IV 01/03/25 02:15 Examination General examination- HEENT- PEERLA, no acute nasal discharge Cardiovascular- S1-S2 audible, rate and rhythm regular, no murmur Respiratory- CTAB, no wheeze or rhonchi Gastrointestinal-nontender, bowel sound+. Nondistended Musculoskeletal-no acute joint swelling or tenderness or redness Lower extremity- Neurological- cranial nerves intact, no acute dysarthria or dysphagia Psychiatry- denies depression or SI or HI Skin- no acute rash or purpura laboratory and microbiology Laboratory Tests 01/03/25 10:22 01/03/25 03:48 Test 01/03/25 03:48 Range/Units Serum Glucose 102 # 74-106 mg/dL Problem List/Assessment/Plan Problem List/Assessment/Plan Assessment and plan # Severe Sepsis due to Bilateral foot ulcers with cellulitis and probable osteomyelitis #Bilateral foot ulcers with cellulitis and probable osteomyelitis # PAD #Diabetic foot ulcer #Lactic acidosis # neutrophilic leukocytosis -Wound culture, Blood culture, MRSA screening ordered -Doppler study of the lower extremity revealed peripheral arterial disease.Greater than 75% stenosis of the right dorsalis pedis.Nonvisualization of the right posterior tibial artery and left dorsalis pedis. Bilateral monophasic arterial waveforms are suggestive of underlying peripheral arterial disease. -CT left foot shows soft tissue gas, stranding, and swelling about the plantar aspect of the forefoot. -IV vancomycin, Zosyn, synchronized with HD sessions -IV fluid maintenance, holding off bolus to avoid fluid overload in context of ESRD with dialysis -Wound care consulted -blood culture, wound culture -S/P Podiatry consulted-patient due for surgical intervention today #History of liver abscess #Acute gastroenteritis #Transaminitis with elevated ALP -Labs showed neutrophilic leukocytosis -Ultrasound liver shows stent in the common bile duct. Gas is seen in the left hepatic lobe, which may be referable to pneumobilia -continue IV Zosyn and vancomycin as prescribed -monitor CMP # hypokalemia-improving -ongoing potassium supplement # acute gastroenteritis, rule out C diff infection -continue current IV fluid -pending stool culture, C diff toxin #Normocytic normochromic anemia, likely due to anemia of chronic disease Low iron, TIBC and% saturation. Normal vitamin B12 and increased retic count #ESRD on hemodialysis #Hypovolemic Hyponatremia IV fluid maintenance, holding off bolus to avoid fluid overload in context of CKD with dialysis -pending nephrology consult -monitor CMP #Diabetes mellitus type 2 with Hyperglycemia -Sliding scale insulin A1c 5.4 -Monitor blood glucose -Diabetes education -Advanced to Diabetic diet when appropriate #Polysubstance abuse -Toxicology screen -positive for amphetamine -counseled patient about the effect of substance abuse on health Goals of care, Code status ; discussed with >15 minutes PUD prophylaxis: Pantoprazole DVT prophylaxis: Heparin Plan discussed with Dr. Low , nursing staff, Total time spent on patient evaluation, chart review, assessment and plan, discussion discussion >35 minutes Plan discussed with: Patient, Other (RN) My Orders My Orders Orders - TAE AWAD Procedure Category Date Status Time Basic Metabolic Panel LAB 01/03/25 Logged 12:00 Date of Service: Jan 03, 2025 Billing Provider: CHEYENNE LOW MD Common Visit Codes: [id number] INP/OBS CARE(HIGH) TAE AWAD Jan 03, 2025 11:21 CHEYENNE LOW MD Jan 03, 2025 22:14
[2025-01-03] MEDS: HYDROmorphone HCL 2 MG/ML VL/or syr IV ONE (11:22)
[2025-01-03] MEDS ORDERED: POTASSIUM CHL 20MEQ/100ML 100 ML IV SCH (12:30)
[2025-01-03 13:34] LABS: Anion Gap 13 (5-15); Carbon Dioxide 17 mmol/L (20-31); Chloride 107 mmol/L (98-107); Potassium 3.3 mmol/L (3.5-5.1); Sodium 137 mmol/L (136-145)
[2025-01-03 13:38] LABS: Calcium 7.7 mg/dL (8.7-10.4)
[2025-01-03 13:39] LABS: BUN/Creatinine Ratio 8.5 (10.0-20.0)
[2025-01-03 13:40] LABS: Blood Urea Nitrogen 33 mg/dL (9-23); Glucose 109 mg/dL (74-106)
[2025-01-03 13:55] LABS: Hepatitis B Surface Antigen Negative (Negative); Hepatitis C Antibody Negative (Negative)
[2025-01-03] MEDS ORDERED: fentaNYL CITRATE 100 MCG/2 ML VL ONE (15:03)
--- NOTE | 2025-01-03 15:26 | DVHOP2 ---
Operative Report - 2 Report Details Date: 01/03/25 Preop Diagnosis: 1. Left foot osteomyelitis 2. Left foot abscess 3. Left foot cellulitis 4. Left foot diabetic ulcer Postop Diagnosis: Same as preop Surgeon: Manuel Skinner MD Anesthesiologist: See anesthesia Anesthesia: General Consent: The patient was informed of the risks and benefits of the procedure. These include but are not limited to complications of anesthesia, postoperative infection, incomplete relief of symptoms, recurrence of symptoms, damage to blood vessels, nerves and tendons, deep venous thrombosis, pulmonary embolism and possible need for repeat surgery in the future. Complications: None Estimated Blood Loss: Minimal Fluids: See anesthesia Findings: Consistent with the diagnosis Indications for Surgery: Worsening foot ulcer Name of Procedure Performed 1. Left foot I*D to bone (32044) Procedure Details Procedure Details: PRE-PROCEDURE INFORMATION: In the pre-op holding area, the extremity to be operated on was clearly marked and the patient verified correct laterality of the marking. The patient was transferred to the OR table and placed in a supine position. A timeout was performed in which identification of the correct patient, procedure, location, and materials was done. The left foot and leg were prepped and draped in normal sterile fashion. DESCRIPTION OF PROCEDURE: Attention was directed to the left where area of fluctuance was noted. An incision was made over this area and was deepened through blunt dissection. The incision was deepened to the level of abscess and bone. Care was taken to the dissection to avoid any neurovascular and tendinous structures. The incision was deepened to the bone, and the abscess appeared to be purulent fluid consistent with pus. The cortices of the bone was then remov ed with rongeur an all necrotic tissue. After the abscess was drained, the area was irrigated with 3 L normal saline using cysto tubing. Deep cultures were then obtained from the wound. The area was then inspected and any areas of tracking, especially along the tendons were also drained. The wound was packed with Betadine-soaked gauze and we will need to be closed at a later date. POSTOPERATIVE INFORMATION: The patient tolerated the above noted procedure and anesthesia well and was transferred to the PACU with vital signs stable, and vascular status intact with capillary refill intact to all digits. Patient will need 6 weeks of IV antibiotics. Deep cultures were taken. Patient will return on Wednesday for possible closure if repeat I&D. Condition Good Disposition Still a Patient Visit Coding Podiatry Date of Service if different f: Jan 03, 2025 Billing Provider: MANUEL SKINNER DPM Podiatry Common Visit Codes: PROCEDURE ONLY MANUEL SKINNER DPM Jan 03, 2025 15:26
[2025-01-03] MEDS ORDERED: ONDANSETRON HCL 4 MG/2 ML VIAL IV PRN (15:45)
[2025-01-03] MEDS ORDERED: HYDROmorphone HCL 2 MG/ML VL/or syr IV PRN (15:45)
--- NOTE | 2025-01-03 16:29 | DVHCONRES ---
Date Seen: Jan 03, 2025 Resident Creating Document: ROSIE CENTENO RESIDENT Referring Physician resident Lexis Reason for Consultation Stage IV CKD on dialysis History of Present Illness This is a 54-year-old male with past medical history of type 2 diabetes mellitus, ESRD on dialysis( M, W, F), guard, liver abscess presented to the ER for worsening left foot ulcer. Stated that he went for appointment with Dr. Nieves where he was informed that foot ulcer infected and is sent to the ER for further evaluation and management. He mentioned that he has having foot pain for last 1 month getting worse that prompted this visit and he also complaint of diarrhea for last 2 weeks. Denies fever, chills, nausea, vomiting, dizziness, chest pain, shortness of breath, dysuria, hematuria, positive sick contact or any recent traveling. Patient was seen and examined on the bedside. He is alert oriented x3. Compl aint of generalized weakness and left foot pain. patient went to the OR for I and D of left foot. Past Medical History Type 2 diabetes mellitus, ESRD on dialysis( M, W, F), GERD, liver abscess Past Surgical History Cholecystectomy, status post biliary stent Family History: Diabetes mellitus G8 MOTHER, Allergies: Coded Allergies: NO KNOWN ALLERGIES (Unverified , 01/02/25) Home Meds No Active Prescriptions or Reported Meds Current Medications Current Medications Medications (Trade) Dose Ordered Sig/Vargas Route PRN Reason Start Time Stop Time Status Last Admin Sodium Chloride 1,000 ml @ 120 mls/hr Q8H20M IV 01/02/25 22:00 01/03/25 06:24 Zinc Sulfate 220 mg DAILY PO 01/03/25 10:00 Ascorbic Acid (Vitamin C Tablet) 500 mg BID PO 01/02/25 22:00 01/03/25 01:05 Acetaminophen (Tylenol Tablet) 650 mg Q6HP PRN PO PAIN SCALE 1-3 OR TEMP>100.4 01/02/25 22:00 Enoxaparin Sodium (Lovenox) 40 mg DAILY SC 01/02/25 22:00 01/02/25 22:36 DC Potassium Chloride 100 ml @ 50 mls/hr Q2H IV 01/02/25 22:00 01/03/25 03:59 DC 01/03/25 06:00 Piperacillin Sod/ Tazobactam Sod 100 ml @ 25 mls/hr Q12H IV 01/03/25 01:00 01/03/25 13:00 Vancomycin HCl 0 ml @ 0 mls/hr UD IV 01/02/25 22:00 Diagnostic Test (Pha) (Accu-Chek Comfort Curve T) 1 strip ACHS 01/02/25 22:00 01/03/25 10:24 Insulin Human Regular (InsuLIN R) ACHS SC 01/02/25 22:00 01/03/25 01:04 Dextrose 50 ml UD PRN IV Blood Sugar LESS THAN 60 01/02/25 22:00 Heparin Sodium (Porcine) 5,000 units Q12HR SC 01/03/25 10:00 Morphine Sulfate 2 mg Q6HPRN PRN IV SEVERE PAIN (7-10 PAIN SCALE) 01/03/25 02:15 Potassium Chloride 100 ml @ 50 mls/hr Q2H IV 01/03/25 12:30 01/03/25 14:33 DC Mupirocin (Bactroban 2% Ointment) 1 applic BID EACHNOSTRI 01/03/25 22:00 01/08/25 21:59 Ondansetron HCl (Zofran) 4 mg ONCE PRN IV NAUSEA / VOMITING 01/03/25 15:45 01/03/25 16:15 DC Hydromorphone HCl (Dilaudid Injection) 0.5 mg Q10M PRN IV SEVERE PAIN (7-10 PAIN SCALE) 01/03/25 15:45 01/03/25 16:26 Ferrous Sulfate 325 mg DAILY PO 01/04/25 10:00 Review of Systems Constitutional: Weakness, No: Fever, Chills, Sweats, Malaise, Other Eyes: No: Pain, Vision change, Conjunctivae inflammation, Eyelid inflammation, Other, Redness ENT: No: Ear pain, Ear discharge, Nose pain, Nose discharge, Nose congestion, Mouth pain, Mouth swelling, Throat pain, Throat swelling, Other Respiratory: Shortness of breath, improving No: Cough, Dry,Wheezing, Hemoptysis, Pleuritic Pain, Sputum, Wheezing, Other Cardiovascular: No: Chest Pain, Palpitations, Orthopnea, Paroxysmal Noc. Dyspnea, Edema, Lt Headedness, Other Gastrointestinal: No: Nausea, Vomiting, Abdominal Pain, Diarrhea, Constipation, Melena, Hematochezia, Other Musculoskeletal: Left foot pain No: other, neck pain, shoulder pain, arm pain, back pain, hand pain, leg pain, foot pain Neurological:; No: Weakness, Numbness, Incoordination, Change in speech, Confusion, Seizures Vital Signs Vital Signs Date Time Temp Pulse Resp B/P (MAP) Pulse Ox O2 Delivery O2 Flow Rate FiO2 01/03/25 15:30 62 100 100 Room Air 0 01/03/25 15:30 97.3 86/42 (57) 97.3 01/03/25 15:30 100 Physical Exam Physical examination: General Appearance: Alert, Oriented X3, Cooperative, No acute distress HEENT: Atraumatic, PERRLA, EOMI, Mucous membrane moist/pink Respiratory: Tunnel catheter on the right side of the chest, Clear to auscultation, Normal air movement Cardiovascular: Regular rate, Normal S1, Normal S2, No murmurs, no chest wall tenderness Abdominal: Normal bowel sounds, Soft, No tenderness, No hepatospenomegaly, No masses Extremities: Ulcer on the plantar surface of the left foot covered with bandage, No clubbing, No cyanosis, No edema, Normal pulses, No tenderness/swelling Skin: No rashes, No breakdown, No significant lesion Neuro: Normal gait, Normal speech, Strength at 5/5 X4 ext, Normal tone, Sensation intact, Cranial nerves 3-12 NL, Reflexes 2+ Psych/Mental Status: Mental status NL, Mood NL Labs/Diagnostic Data Labs Test 01/03/25 13:00 01/03/25 10:22 01/03/25 10:21 01/03/25 03:48 Range/Units Sodium Level 137 136-145 mmol/L Potassium Level 3.3 L 3.5-5.1 mmol/L Chloride Level 107 98-107 mmol/L Carbon Dioxide Level 17 L 20-31 mmol/L Anion Gap 13 5-15 Blood Urea Nitrogen 33 H 9-23 mg/dL Creatinine 3.86 H 0.700-1.30 mg/dL Glomerular Filtration Rate Calc 18 >90 mL/min BUN/Creatinine Ratio 8.5 L 10.0-20.0 Serum Glucose 109 H 74-106 mg/dL Calcium Level 7.7 L 8.7-10.4 mg/dL Phosphorus Level 5.0 2.4-5.1 mg/dL Hepatitis B Surface Antigen Negative Negative Hepatitis C Antibody Negative Negative POC Glucose 96 70-106 mg/dl White Blood Count 17.7 H 4.4-10.8 10^3/uL Red Blood Count 2.47 L 4.5-5.90 10^6/uL Hemoglobin 8.1 L 13.5-17.5 g/dL Hematocrit 25.6 L 41.0-53.0 % Mean Corpuscular Volume 103.7 #H 80.0-100.0 fL Mean Corpuscular Hemoglobin 32.6 H 28.0-32.0 pg Mean Corpuscular Hemoglobin Concent 31.5 L 32.0-36.0 g/dL Red Cell Distribution Width 15.2 H 11.8-14.3 % Platelet Count 258 140-450 10^3/uL Mean Platelet Volume 7.2 6.9-10.8 fL Neutrophils (%) (Auto) 80.5 H 37.0-80.0 % Lymphocytes (%) (Auto) 11.5 10.0-50.0 % Monocytes (%) (Auto) 3.6 0.0-12.0 % Eosinophils (%) (Auto) 3.8 0.0-7.0 % Basophils (%) (Auto) 0.6 0.0-2.0 % Neutrophils # (Auto) 14.2 H 1.6-8.6 10 ^3/uL Lymphocytes # (Auto) 2.0 0.4-5.4 10 ^3/uL Monocytes # (Auto) 0.6 0-1.3 10 ^3/uL Eosinophils # (Auto) 0.7 0-0.8 10 ^3/uL Basophils # (Auto) 0.1 0-0.2 10 ^3/uL Nucleated Red Blood Cells 0.1 % Total Bilirubin 4.5 H 0.2-1.0 mg/dL Aspartate Amino Transferase (AST) 35 13-40 U/L Alanine Aminotransferase (ALT) 15 7-40 U/L Alkaline Phosphatase 696 H 46-116 U/L Total Protein 6.3 5.7-8.2 g/dL Albumin 3.1 L 3.2-4.8 g/dL Test 01/03/25 00:00 01/02/25 22:47 01/02/25 21:58 01/02/25 20:47 Range/Units Urine Color Yellow Yellow Urine Clarity Clear Clear Urine pH 6.0 5.0-9.0 Urine Specific Parsons 1.011 1.001-1.035 Urine Protein 2+ H Negative Urine Ketones Negative Negative Urine Blood 1+ H Negative /uL Urine Nitrite Negative Negative Urine Bilirubin Negative Negative Urine Urobilinogen Normal Negative mg/dL Urine Leukocyte Esterase Negative Negative /uL Urine RBC 6 0 - 3 /hpf Urine Microscopic WBC 4 H 0-3 /HPF Urine Squamous Epithelial Cells Few <5 /hpf Urine Bacteria None seen None Seen /hpf Urine Glucose 4+ H Normal mg/dL Urine Opiates Screen Neg NEGATIVE Urine Fentanyl Screen Neg NEGATIVE Urine Barbiturates Screen Neg NEGATIVE Urine Phencyclidine Screen Neg NEGATIVE Urine Amphetamines Screen Pos NEGATIVE Urine Benzodiazepines Screen Neg NEGATIVE Urine Cocaine Screen Neg NEGATIVE Urine Cannabinoids Screen Neg NEGATIVE Reticulocyte Count (auto) 4.13 H 0.5-1.5 % Influenza Type A Antigen Negative Negative Influenza Type B Antigen Negative Negative SARS-CoV-2 Antigen (Rapid) Negative NEGATIVE Lactic Acid Level 1.8 0.4-2.0 mmol/L Test 01/02/25 18:28 01/02/25 15:18 Range/Units Prothrombin Time 11.4 9.3-11.8 sec Prothrombin Time INR 1.08 0.9-1.15 Activated Partial Thromboplast Time 31.0 24.5-34.5 SEC Hemoglobin A1c 5.4 <5.7 % A1C Serum Osmolality 301 H 278-298 mOsm/kg Magnesium Level 1.9 1.6-2.6 mg/dL Ferritin 20.2 L 22-322 ng/mL Troponin I High Sensitivity 7 </=54 ng/L C-Reactive Protein High Sensitivity 19.47 H <1.0 mg/dL Triglycerides Level 137 < 150 mg/dL Cholesterol Level 141 < 200 mg/dL LDL Cholesterol 85 < 100 mg/dL HDL Cholesterol 37 L 40-59 mg/dL Lipase 41 12-53 U/L Vitamin B12 Level 1072 H 211-911 pg/mL Vitamin D 25-Hydroxy 32.0 30.0-100 ng/mL Folic Acid 13.14 >5.38 ng/mL Thyroid Stimulating Hormone (TSH) 4.95 H 0.55-4.78 uIU/mL Iron Level 30 L 65-175 ug/dL Total Iron Binding Capacity 159 L 250-425 ug/dL Percent Iron Saturation 18.9 L 20-55 % Microbiology Date/Time Source Procedure Growth Status 01/02/25 22:00 Foot Gram Stain - Final Resulted 01/02/25 22:00 Foot Wound Culture Pending Resulted Assessment Assessment and plan: # ESRD on hemodialysis # Hypokalemia # Diabetic ulcer of the left foot # Sepsis due to above # Peripheral artery disease # Nicotine dependence # Methamphetamine abuse disorder Plan: - Scheduled for hemodialysis tomorrow - Replaced potassium - I and D of left foot today - Continue IV antibiotics and other management as per primary - Counseled patient regarding quit smoking, drug abuse and rehabilitation - Strict I&O - Monitor BMP Thank you so much for the opportunity to consult on your patient. Nephro team will follow the patient. In case of any questions or concerns please feel free to reach out. Plan discussed with Dr. Mera. The patient and caregiver team agreed to the plan. Addendum Patient seen and examined, plan discussed with resident. Agree with above, we will follow closely Plan discussed with: Patient, Other (RN) ROSIE CENTENO Jan 03, 2025 16:29 MCKAY MERA MD Jan 04, 2025 10:26
[2025-01-03] MEDS: POTASSIUM CHL 20 Meq TABLET PO ONE (16:43)
[2025-01-03] MEDS: MUPIROCIN 2% OINT 15gm or 22gm FOR MRSA NARES EACHNOSTRI SCH (22:00)
[2025-01-04] VITALS (9 sets, daily range): BP systolic 97–137; BP diastolic 58–88; PULSE 66–95; RESP 16–18; TEMP 97–98.5; O2SAT 99–100
[2025-01-04] MEDS: FERROUS SULFATE 325mg EC TAB PO SCH (09:06)
[2025-01-04] MEDS: POTASSIUM CHL 20 Meq TABLET PO ONE ×2 (09:14→18:56)
[2025-01-04] MEDS: MORPHINE SULFATE 4 MG/ML SYR/VIAL IV PRN (10:22)
[2025-01-04 10:59] LABS: Nucleated Red Blood Cells % 0.0 %
[2025-01-04 11:00] LABS: Hematocrit 24.3 % (41.0-53.0); Hemoglobin 7.7 g/dL (13.5-17.5); Mean Corpuscular Hemoglobin 31.8 pg (28.0-32.0); Mean Corpuscular Volume 99.4 fL (80.0-100.0)
[2025-01-04 11:18] LABS: Alanine Aminotransferase 11 U/L (7-40); Anion Gap 13 (5-15); BUN/Creatinine Ratio 6.2 (10.0-20.0); Chloride 106 mmol/L (98-107); Total Protein 5.7 g/dL (5.7-8.2)
[2025-01-04 11:28] LABS: Albumin 2.7 g/dL (3.2-4.8); Alkaline Phosphatase 488 U/L (46-116); Bilirubin, Total 3.4 mg/dL (0.2-1.0); Blood Urea Nitrogen 25 mg/dL (9-23); Calcium 7.6 mg/dL (8.7-10.4); Carbon Dioxide 15 mmol/L (20-31); Glucose 150 mg/dL (74-106); Magnesium 1.4 mg/dL (1.6-2.6); Potassium 3.5 mmol/L (3.5-5.1); Sodium 134 mmol/L (136-145)
--- NOTE | 2025-01-04 12:24 | DVHPNRES ---
Progress Note Date Seen: Jan 04, 2025 Resident Creating Document: TAE AWAD RESIDENT Medical Necessity Reason Pt with a Central, PICC or Fol: No Subjective Review of Systems Patient is 54-year-old male with past medical history of diabetes mellitus, ESRD on dialysis (M, W, F), GERD, liver abscess, presented to the ER for worsening left foot ulcer. Patient went for appointment with Dr. Thornton, where he was informed that has foot ulcers infected and was sent to the ER. Patient complained of worsening pain in foot, which he 1st noticed 1 month ago. He was hospitalized for 1 month at the [facility] for a liver abscess, discharged with no antibiotics nor home medication. He also complained of diarrhea since last 2 weeks, reports loose, watery, runny diarrhea, 6-10 times daily, no blood seen. Patient's lab workup revealed leukocytosis with WBC 18.2, anemia with a hemoglobin 8.2, hypokalemia potassium 2.5, increased anion gap 19, serum creatinine 4.05, GFR 17, BUN 33, lactic acidosis with lactic acid 2.4, 30, ferritin 20.2, TIBC 159, UDS positive for amphetamine. Patient tested negative for influenza type a and B, COVID-19, hepatitis-B surface antigen, hepatitis-C antibody. CT left foot revealed- Findings as above suggestive of infectious / inflammatory process involving the plantar aspect of the foot. No definite osseous erosion, though MRI would be more sensitive for osteomyelitis as clinically indicated. Necrotizing fasciitis cannot be excluded on the basis of CT. Ultrasound of the liver revealed- Prior cholecystectomy with stent seen in the common bile duct. Gas is seen in the left hepatic lobe, which may be referable to pneumobilia, though portal venous gas cannot be excluded. Arterial Doppler of the bilateral lower extremity revealed-Greater than 75% stenosis of the right dorsalis pedis based on peak systolic velocity criteria. Nonvisualization of the right posterior tibial artery and left dorsalis pedis. Bilateral monophasic arterial waveforms are suggestive of underlying peripheral arterial disease. Previous hospitalization: November 2024 for liver abscess in [facility] for 1 month PMHx: Diabetes mellitus, ESRD on HD sessions, GERD, liver abscess s/p op PSHx: Toe amputation, cholecystectomy, biliary stent Social history: Reports smoking half pack per day since the age of 14 years, alcohol use 2 units daily, reports using methamphetamine and marijuana. Lives in home alone. Full code. Next to kin cousin Alize Villegas Home medication: Reportedly no home medication reconciled after discharge from [facility] Allergic history: No known allergy history Patient was seen today at bedside. Labs and chart reviewed. Patient was seen by Nephrology, plan is to do hemodialysis today, pending wound culture report. We will continue vancomycin and Zosyn. As per Podiatry plan is to do incision and closer tomorrow, 6 weeks of IV antibiotic. Patient to be NPO after midnight for wound closure. Nephrology consult reviewed and appreciated. Objective vital signs Vital Sign Date Time Temp Pulse Resp B/P (MAP) Pulse Ox O2 Delivery O2 Flow Rate FiO2 01/04/25 10:22 72 18 138/84 01/04/25 09:00 98.0 100 98.0 01/04/25 07:57 Room Air* 0 21 Total Intake and Output 01/03/25 01/03/25 01/04/25 15:00 23:00 07:00 Intake Total 300 ml 100 ml 300 ml Output Total 700 ml 1600 ml Balance 300 ml -600 ml -1300 ml medications Current Medications Medications Dose Ordered Sig/Vargas Route Start Time Stop Time Status Last Admin Dose Admin Sodium Chloride 1,000 ml @ 120 mls/hr Q8H20M IV 01/02/25 22:00 01/03/25 23:02 120 MLS/HR Zinc Sulfate 220 mg DAILY PO 01/03/25 10:00 01/04/25 09:06 220 MG Ascorbic Acid 500 mg BID PO 01/02/25 22:00 01/04/25 09:06 500 MG Acetaminophen 650 mg Q6HP PRN PO 01/02/25 22:00 Piperacillin Sod/ Tazobactam Sod 100 ml @ 25 mls/hr Q12H IV 01/03/25 01:00 01/04/25 00:38 25 MLS/HR Vancomycin HCl 0 ml @ 0 mls/hr UD IV 01/02/25 22:00 Diagnostic Test (Pha) 1 strip ACHS 01/02/25 22:00 01/04/25 10:32 1 STRIP Insulin Human Regular ACHS SC 01/02/25 22:00 01/04/25 10:32 3 UNITS Dextrose 50 ml UD PRN IV 01/02/25 22:00 Heparin Sodium (Porcine) 5,000 units Q12HR SC 01/03/25 10:00 01/04/25 09:09 5,000 UNITS Morphine Sulfate 2 mg Q6HPRN PRN IV 01/03/25 02:15 Cancel Mupirocin 1 applic BID EACHNOSTRI 01/03/25 22:00 01/08/25 21:59 01/04/25 09:06 1 APPLIC Ferrous Sulfate 325 mg DAILY PO 01/04/25 10:00 01/04/25 09:06 325 MG Morphine Sulfate 2 mg Q6HPRN PRN IV 01/04/25 09:30 01/04/25 10:22 2 MG Examination General examination- awake, alert, conversant HEENT- PEERLA, no acute nasal discharge Cardiovascular- S1-S2 audible, rate and rhythm regular, no murmur Respiratory- CTAB, no wheeze or rhonchi Gastrointestinal-nontender, bowel sound+. Nondistended Musculoskeletal-no acute joint swelling or tenderness or redness Lower extremity- ADP bilaterally not palpable, wound of the left foot with gangrenous changes, wound on the right foot heel Neurological- cranial nerves intact, no acute dysarthria or dysphagia Psychiatry- denies depression or SI or HI Skin- no acute rash or purpura laboratory and microbiology Laboratory Tests 01/04/25 10:42 Test 01/04/25 10:42 Range/Units Serum Glucose 150 H 74-106 mg/dL Microbiology Date/Time Source Procedure Growth Status 01/03/25 15:24 Foot Left Gram Stain Pending Resulted 01/03/25 15:24 Foot Left Anaerobic Culture Pending Resulted 01/03/25 15:24 Foot Left Aerobic Culture - Preliminary Resulted 01/02/25 16:40 Blood Blood Culture - Preliminary NO GROWTH AFTER 24 HOURS OF INCUBATION. Resulted Problem List/Assessment/Plan Problem List/Assessment/Plan Assessment and plan # Sepsis due to Bilateral foot ulcers with cellulitis and probable osteomyelitis #Bilateral foot ulcers with cellulitis and Osteomyelitis # PAD #Diabetic foot ulcer #Lactic acidosis # neutrophilic leukocytosis -Wound culture, Blood culture, MRSA screening ordered -Doppler study of the lower extremity revealed peripheral arterial disease.Greater than 75% stenosis of the right dorsalis pedis.Nonvisualization of the right posterior tibial artery and left dorsalis pedis. Bilateral monophasic arterial waveforms are suggestive of underlying peripheral arterial disease. -CT left foot shows soft tissue gas, stranding, and swelling about the plantar aspect of the forefoot. -IV vancomycin, Zosyn, synchronized with HD sessions -Wound care consulted -blood culture no growth so far, Pending wound culture -S/P Podiatry consulted-status post incision and drainage -as per Podiatry wound closer tomorrow morning on Wednesday01/05/2025 -for osteomyelitis plan is for 6 weeks of antibiotic, -NPO after midnight #History of liver abscess #Acute gastroenteritis #Transaminitis with elevated ALP -Labs showed neutrophilic leukocytosis -Ultrasound liver shows stent in the common bile duct. Gas is seen in the left hepatic lobe, which may be referable to pneumobilia -continue IV Zosyn and vancomycin as prescribed -monitor CMP # hypokalemia-replenished -monitor BMP # acute gastroenteritis, rule out C diff infection -continue current IV fluid -pending stool culture, C diff toxin #Normocytic normochromic anemia, likely due to anemia of chronic disease Low iron, TIBC and% saturation. Normal vitamin B12 and increased retic count #ESRD on hemodialysis #Hypovolemic Hyponatremia IV fluid maintenance, holding off bolus to avoid fluid overload in context of CKD with dialysis -status post nephrology consult -is scheduled for hemo dialysis today -monitor CMP #Diabetes mellitus type 2 with Hyperglycemia -Sliding scale insulin A1c 5.4 -Monitor blood glucose -Diabetes education -Advanced to Diabetic diet when appropriate #Polysubstance abuse -Toxicology screen -positive for amphetamine -counseled patient about the effect of substance abuse on health Goals of care, Code status ; discussed with >15 minutes PUD prophylaxis: Pantoprazole DVT prophylaxis: Heparin Plan discussed with Dr. Low , nursing staff, Total time spent on patient evaluation, chart review, assessment and plan, discussion discussion >35 minutes Plan discussed with: Patient, Other (RN) My Orders My Orders Orders - TAE AWAD RESIDENT Procedure Category Date Status Time Mupirocin 2% Oint PHA 01/03/25 In Process Mrsa Nares (Bactroban 22:00 Ferrous Sulfate Tablet PHA 01/04/25 In Process 10:00 Transfer Orders XFER 01/04/25 Transmitted 10:08 Communication Order ORDERS 01/04/25 Transmitted 10:08 Dietary Evaluation Review Comments: Nutrition Recommendation: 1) Advance to [facility] 75gm + renal standard diet 2) Nephro-tila 1 tab daily 3) Kristopher 1 pk & Pro-stat 1 pk daily 4) Monitor NPO status, lab values, weight trend, and I/O Expected Outcomes/Goals: To meet >75% estimated needs Wound to improve Fu 2-3 days Date of Service: Jan 04, 2025 Billing Provider: CHEYENNE LOW MD Common Visit Codes: 71042-[id number] INP/OBS CARE(HIGH) TAE AWAD RESIDENT Jan 04, 2025 12:24 CHEYENNE LOW MD Jan 05, 2025 19:51
[2025-01-04] MEDS ORDERED: PROPOFOL 10 MG/ML IV ONE (12:39)
[2025-01-04 14:40] LABS: Chloride 102 mmol/L (98-107); Sodium 139 mmol/L (136-145)
[2025-01-04 14:41] LABS: Anion Gap 12 (5-15); Carbon Dioxide 25 mmol/L (20-31)
[2025-01-04 14:44] LABS: Calcium 7.4 mg/dL (8.7-10.4); Potassium 2.6 mmol/L (3.5-5.1)
[2025-01-04 14:46] LABS: BUN/Creatinine Ratio 6.5 (10.0-20.0); Blood Urea Nitrogen 17 mg/dL (9-23); Glucose 109 mg/dL (74-106)
[2025-01-04] MEDS: MAGNESIUM SULFATE 1GM/100ML 100 ML IV SCH (17:37)
--- NOTE | 2025-01-04 17:50 | DVHPNRES ---
Progress Note Date Seen: Jan 04, 2025 Resident Creating Document: ROSIE CENTENO RESIDENT Medical Necessity Reason Pt with a Central, PICC or Fol: No Subjective Review of Systems Patient was seen and examined on the bedside. He is alert oriented x3. Complaint of generalized weakness and left foot pain. S/P I&D of left foot day 1. Patient is clear for PICC line from nephrology Objective vital signs Vital Sign Date Time Temp Pulse Resp B/P (MAP) Pulse Ox O2 Delivery O2 Flow Rate FiO2 01/04/25 17:13 88 18 130/67 01/04/25 16:48 97.8 100 97.8 01/04/25 07:57 Room Air* 0 21 Total Intake and Output 01/03/25 01/03/25 01/04/25 15:00 23:00 07:00 Intake Total 300 ml 100 ml 300 ml Output Total 700 ml 1600 ml Balance 300 ml -600 ml -1300 ml medications Current Medications Medications Dose Ordered Sig/Vargas Route Start Time Stop Time Status Last Admin Dose Admin Zinc Sulfate 220 mg DAILY PO 01/03/25 10:00 01/04/25 09:06 220 MG Ascorbic Acid 500 mg BID PO 01/02/25 22:00 01/04/25 09:06 500 MG Acetaminophen 650 mg Q6HP PRN PO 01/02/25 22:00 Piperacillin Sod/ Tazobactam Sod 100 ml @ 25 mls/hr Q12H IV 01/03/25 01:00 01/04/25 12:34 25 MLS/HR Vancomycin HCl 0 ml @ 0 mls/hr UD IV 01/02/25 22:00 Diagnostic Test (Pha) 1 strip ACHS 01/02/25 22:00 01/04/25 16:31 1 STRIP Insulin Human Regular ACHS SC 01/02/25 22:00 01/04/25 10:32 3 UNITS Dextrose 50 ml UD PRN IV 01/02/25 22:00 Heparin Sodium (Porcine) 5,000 units Q12HR SC 01/03/25 10:00 01/04/25 09:09 5,000 UNITS Morphine Sulfate 2 mg Q6HPRN PRN IV 01/03/25 02:15 Cancel Mupirocin 1 applic BID EACHNOSTRI 01/03/25 22:00 01/08/25 21:59 01/04/25 09:06 1 APPLIC Morphine Sulfate 2 mg Q6HPRN PRN IV 01/04/25 09:30 01/04/25 17:13 2 MG Magnesium Sulfate/ Dextrose 100 ml @ 100 mls/hr Q1HR IV 01/04/25 18:00 01/04/25 19:59 01/04/25 17:37 100 MLS/HR Examination Physical examination: General Appearance: Alert, Oriented X3, Cooperative, No acute distress HEENT: Atraumatic, PERRLA, EOMI, Mucous membrane moist/pink Respiratory: Tunnel catheter on the right side of the chest, Clear to auscultation, Normal air movement Cardiovascular: Regular rate, Normal S1, Normal S2, No murmurs, no chest wall tenderness Abdominal: Normal bowel sounds, Soft, No tenderness, No hepatospenomegaly, No masses Extremities: Ulcer on the plantar surface of the left foot covered with bandage, No clubbing, No cyanosis, No edema, Normal pulses, No tenderness/swelling Skin: No rashes, No breakdown, No significant lesion Neuro: Normal gait, Normal speech, Strength at 5/5 X4 ext, Normal tone, Sensation intact, Cranial nerves 3-12 NL, Reflexes 2+ Psych/Mental Status: Mental status NL, Mood NL laboratory and microbiology Laboratory Tests 01/04/25 14:25 01/04/25 10:42 Test 01/04/25 14:25 Range/Units Serum Glucose 109 H 74-106 mg/dL Microbiology Date/Time Source Procedure Growth Status 01/03/25 15:24 Foot Left Gram Stain - Final Resulted 01/03/25 15:24 Foot Left Anaerobic Culture - Preliminary Resulted 01/03/25 15:24 Foot Left Aerobic Culture - Preliminary Resulted 01/02/25 16:40 Blood Blood Culture - Preliminary NO GROWTH AFTER 48 HOURS OF INCUBATION. Resulted Problem List/Assessment/Plan Problem List/Assessment/Plan Assessment and plan: # ESRD on hemodialysis # Hypokalemia # Diabetic ulcer of the left foot # Sepsis due to above # Peripheral artery disease # Nicotine dependence # Methamphetamine abuse disorder Plan: - Scheduled for hemodialysis today - Replaced potassium - S/P I&D of left foot day 1 - Continue IV antibiotics and other management as per primary - Counseled patient regarding quit smoking, drug abuse and rehabilitation - Strict I&O - Monitor BMP Thank you so much for the opportunity to consult on your patient. Nephro team will follow the patient. In case of any questions or concerns please feel free to reach out. Plan discussed with Dr. Mera. The patient and caregiver team agreed to the plan. Addendum Patient seen and examined, plan discussed with resident. Agree with above, we will follow closely Plan discussed with: Patient, Other (RN) My Orders My Orders Orders - ROSIE CENTENO Procedure Category Date Status Time Communication Order ORDERS 01/04/25 Transmitted 14:03 Dietary Evaluation Review Comments: Nutrition Recommendation: 1) Advance to [facility] 75gm + renal standard diet 2) Nephro-tila 1 tab daily 3) Kristopher 1 pk & Pro-stat 1 pk daily 4) Monitor NPO status, lab values, weight trend, and I/O Expected Outcomes/Goals: To meet >75% estimated needs Wound to improve Fu 2-3 days ROSIE CENTENO Jan 04, 2025 17:50 MCKAY MERA MD Jan 04, 2025 22:45
[2025-01-04 20:27] LABS: Potassium 3.0 mmol/L (3.5-5.1)
[2025-01-04 20:32] LABS: Magnesium 1.8 mg/dL (1.6-2.6)
[2025-01-04] MEDS: POTASSIUM CHL 20MEQ/100ML 100 ML IV ONE (21:20)
[2025-01-04] MEDS: EPOETIN ALFA-EPBX 4,000 UNIT/ML VIAL SC ONE (21:21)
[2025-01-04] MEDS: HYDROcodone-ACET 5/325MG TAB PO ONE (21:37)
[2025-01-05] VITALS (8 sets, daily range): BP systolic 110–142; BP diastolic 61–77; PULSE 67–103; RESP 17–20; TEMP 97.8–98.1; O2SAT 96–100
[2025-01-05] MEDS: BUPIVACAINE HCL 0 ML ONE (06:46)
[2025-01-05 06:49] LABS: Hematocrit 24.6 % (41.0-53.0); Hemoglobin 8.2 g/dL (13.5-17.5); Mean Corpuscular Hemoglobin 32.3 pg (28.0-32.0); Mean Corpuscular Volume 96.4 fL (80.0-100.0); Nucleated Red Blood Cells % 0.0 %
[2025-01-05 07:04] LABS: Anion Gap 11 (5-15); BUN/Creatinine Ratio 5.7 (10.0-20.0); Blood Urea Nitrogen 19 mg/dL (9-23); Carbon Dioxide 24 mmol/L (20-31); Chloride 104 mmol/L (98-107); Magnesium 2.1 mg/dL (1.6-2.6); Potassium 4.2 mmol/L (3.5-5.1); Sodium 139 mmol/L (136-145); Total Protein 5.8 g/dL (5.7-8.2)
[2025-01-05 07:05] LABS: Alanine Aminotransferase 9 U/L (7-40); Albumin 2.7 g/dL (3.2-4.8); Alkaline Phosphatase 510 U/L (46-116); Bilirubin, Total 3.2 mg/dL (0.2-1.0); Calcium 8.0 mg/dL (8.7-10.4); Glucose 133 mg/dL (74-106)
[2025-01-05] MEDS ORDERED: HYDROmorphone HCL 2 MG/ML VL/or syr IV PRN ×2 (11:15)
[2025-01-05] MEDS ORDERED: MORPHINE SULFATE 4 MG/ML SYR/VIAL IV PRN (11:15)
[2025-01-05] MEDS ORDERED: METOCLOPRAMIDE HCL 5MG/ml INJ 2ml VIAL IV PRN (11:15)
--- NOTE | 2025-01-05 11:25 | DVHPN2 ---
Subjective This is a 54-year-old male with past medical history of diabetes mellitus, ESRD on dialysis (M, W, F), GERD, liver abscess, presented to the ER for worsening left foot ulcer. Patient went for appointment with Dr. Skinner, where he was informed that has foot ulcers infected and was sent to the ER. Patient complained of worsening pain in foot, which he 1st noticed 1 month ago. He was hospitalized for [address] [facility] for a liver abscess, discharged with no antibiotics nor home medication. He also complained of diarrhea since last 2 weeks, reports loose, watery, runny diarrhea, 6-10 times daily, no blood seen. Changes from previous H/P or p: No Changes Gastrointestinal: Diarrhea Musculoskeletal: foot pain Objective Vitals Vital Signs Date Time Temp Pulse Resp B/P (MAP) Pulse Ox O2 Delivery O2 Flow Rate FiO2 01/05/25 08:50 97.9 69 20 110/61 (77) 100 97.9 01/05/25 08:00 Room Air* 0 21 Intake/Output Intake and Output 01/05/25 07:00 Intake Total 1325 ml Output Total 950 ml Balance 375 ml Intake Oral 1125 ml IV Total 200 ml Output Urine Total 950 ml Exam Dermatological: Skin is dry with mild erythema and some maceration around the wound site No gross deformities noted Mild non-pitting edema present bilaterally Left foot plantar wound with purulent drainage and fluctuance Vascular: Dorsalis pedis and posterior tibial pulses are 1+ bilaterally Capillary refill is under 2 seconds Skin temperature is warm bilaterally Neurologic: Protective sensation is absent on the plantar forefoot bilaterally Monofilament testing reveals decreased sensation in multiple plantar sites Musculoskeletal: Range of motion at the ankle and MTP joints is within normal limits. Strength is 5/5 in all tested muscle groups. Gait is antalgic due to offloading of the affected limb. Medications Current Medications Medications Dose Ordered Sig/Vargas Route Start Time Stop Time Status Last Admin Dose Admin Zinc Sulfate 220 mg DAILY PO 01/03/25 10:01/04/25 09:06 220 MG Ascorbic Acid 500 mg BID PO 01/02/25 22:00 01/05/25 00:50 500 MG Acetaminophen 650 mg Q6HP PRN PO 01/02/25 22:00 Piperacillin Sod/ Tazobactam Sod 100 ml @ 25 mls/hr Q12H IV 01/03/25 01:00 01/05/25 01:00 25 MLS/HR Diagnostic Test (Pha) 1 strip ACHS 01/02/25 22:00 01/05/25 07:00 1 STRIP Insulin Human Regular ACHS SC 01/02/25 22:00 01/05/25 07:24 2 UNITS Dextrose 50 ml UD PRN IV 01/02/25 22:00 Heparin Sodium (Porcine) 5,000 units Q12HR SC 01/03/25 10:00 01/05/25 00:52 5,000 UNITS Morphine Sulfate 2 mg Q6HPRN PRN IV 01/03/25 02:15 Cancel Mupirocin 1 applic BID EACHNOSTRI 01/03/25 22:00 01/08/25 21:59 01/05/25 07:41 1 APPLIC Morphine Sulfate 2 mg Q6HPRN PRN IV 01/04/25 09:30 01/05/25 07:31 2 MG Metoclopramide HCl 10 mg ONCE PRN IV 01/05/25 11:15 01/05/25 11:16 UNV Hydromorphone HCl 0.5 mg Q10M PRN IV 01/05/25 11:15 01/05/25 11:56 UNV Morphine Sulfate 2 mg Q4H PRN IV 01/05/25 11:15 01/05/25 15:16 UNV Hydromorphone HCl 0.25 mg Q10M PRN IV 01/05/25 11:15 01/05/25 11:46 UNV Morphine Sulfate 1 mg Q30M PRN IV 01/05/25 11:15 01/05/25 13:16 UNV Laboratory Results Laboratory Tests 01/05/25 06:14 Chemistry Test 01/04/25 14:25 01/04/25 19:56 01/05/25 06:14 Calcium Level 7.4 mg/dL (8.7-10.4) L 8.0 mg/dL (8.7-10.4) L Magnesium Level 1.8 mg/dL (1.6-2.6) 2.1 mg/dL (1.6-2.6) Albumin 2.7 g/dL (3.2-4.8) L Total Protein 5.8 g/dL (5.7-8.2) LFT Test 01/05/25 06:14 Alanine Aminotransferase (ALT) 9 U/L (7-40) Alkaline Phosphatase 510 U/L (46-116) H Aspartate Amino Transferase (AST) 23 U/L (13-40) Total Bilirubin 3.2 mg/dL (0.2-1.0) H Urinalysis Test 01/03/25 00:00 Urine Color Yellow (Yellow) Urine Clarity Clear (Clear) Urine pH 6.0 (5.0-9.0) Urine Specific [place] 1.011 (1.001-1.035) Urine Protein 2+ (Negative) H Urine Ketones Negative (Negative) Urine Blood 1+ /uL (Negative) H Urine Nitrite Negative (Negative) Urine Bilirubin Negative (Negative) Urine Urobilinogen Normal mg/dL (Negative) Urine Leukocyte Esterase Negative /uL (Negative) Urine RBC 6 /hpf (0 - 3) Urine Microscopic WBC 4 /HPF (0-3) H Urine Squamous Epithelial Cells Few /hpf (<5) Urine Bacteria None seen /hpf (None Seen) Urine Glucose 4+ mg/dL (Normal) H Microbiology Microbiology Date/Time Source Procedure Growth Status 01/03/25 15:24 Foot Left Gram Stain - Final Resulted 01/03/25 15:24 Foot Left Anaerobic Culture - Preliminary Resulted 01/03/25 15:24 Aerobic Culture - Preliminary Enterobacter cloacae Proteus mirabilis Resulted 01/02/25 16:40 Blood Blood Culture - Preliminary NO GROWTH AFTER 48 HOURS OF INCUBATION. Resulted Assessment/Plan Assessment/Plan ASSESSMENT: Patient is a 54 year old seen on the floor follow up s/p foot I&D PLAN: - The patients chart was reviewed, clinical findings were discussed with the patient, the etiologies of the conditions were discussed in detail, and a treatment plan was agreed to at this time, with both oral and written instructions provided. - reviewed advanced imaging - reviewed all of the labs and pathology - discussed plan is to perform a subsequent incision and drainage - patient will be NPO at midnight - take him to the OR tomorrow - it was determined that multiple I&Ds will be necessary to save the limb - can weightbear as tolerated in postoperative shoe All questions were answered and concerns addressed to the patient's satisfaction. The patient was given the phone number to the clinic and was told how to make contact with the clinic should any concerns or questions arise. Patient understands that if any questions or concerns arise prior to the next appointment, we should be contacted immediately. FOLLOW-UP: Continue to follow while inpatient Plan discussed with: Patient My Orders Orders - MANUEL SKINNER DPM Procedure Category Date Status Time Npo (Nothing By DIET 01/05/25 Transmitted Mouth) Diet Breakfast Obtain Consent For: ORDERS 01/04/25 Transmitted 12:46 Problem List: (1) Hyperglycemia (2) Sepsis, unspecified organism Visit Coding Podiatry Date of Service if different f: Jan 05, 2025 Billing Provider: MANUEL SKINNER DPM Podiatry Common Visit Codes: [id number] INP/OBS CARE(HIGH) MANUEL SKINNER DPM Jan 05, 2025 11:25
--- NOTE | 2025-01-05 11:31 | DVHPN2 ---
Progress Note Date Seen: Jan 05, 2025 Resident Creating Document: ROSIE CENTENO RESIDENT Medical Necessity Reason Pt with a Central, PICC or Fol: No Subjective Review of Systems Patient was seen and examined on the bedside. He is alert oriented x3. Complaint of generalized weakness and left foot pain. S/P I&D of left foot day 2. Objective vital signs Vital Sign Date Time Temp Pulse Resp B/P (MAP) Pulse Ox O2 Delivery O2 Flow Rate FiO2 01/05/25 08:50 97.9 69 20 110/61 (77) 100 97.9 01/05/25 08:00 Room Air* 0 21 Total Intake and Output 01/04/25 01/04/25 01/05/25 15:00 23:00 07:00 Intake Total 550 ml 775 ml Output Total 300 ml 200 ml 450 ml Balance -300 ml 350 ml 325 ml medications Current Medications Medications Dose Ordered Sig/Vargas Route Start Time Stop Time Status Last Admin Dose Admin Zinc Sulfate 220 mg DAILY PO 01/03/25 10:00 01/04/25 09:06 220 MG Ascorbic Acid 500 mg BID PO 01/02/25 22:00 01/05/25 00:50 500 MG Acetaminophen 650 mg Q6HP PRN PO 01/02/25 22:00 Piperacillin Sod/ Tazobactam Sod 100 ml @ 25 mls/hr Q12H IV 01/03/25 01:00 01/05/25 01:00 25 MLS/HR Diagnostic Test (Pha) 1 strip ACHS 01/02/25 22:00 01/05/25 07:00 1 STRIP Insulin Human Regular ACHS SC 01/02/25 22:00 01/05/25 07:24 2 UNITS Dextrose 50 ml UD PRN IV 01/02/25 22:00 Heparin Sodium (Porcine) 5,000 units Q12HR SC 01/03/25 10:00 01/05/25 00:52 5,000 UNITS Morphine Sulfate 2 mg Q6HPRN PRN IV 01/03/25 02:15 Cancel Mupirocin 1 applic BID EACHNOSTRI 01/03/25 22:00 01/08/25 21:59 01/05/25 07:41 1 APPLIC Morphine Sulfate 2 mg Q6HPRN PRN IV 01/04/25 09:30 01/05/25 07:31 2 MG Metoclopramide HCl 10 mg ONCE PRN IV 01/05/25 11:15 01/05/25 11:16 UNV Hydromorphone HCl 0.5 mg Q10M PRN IV 01/05/25 11:15 01/05/25 11:56 UNV Morphine Sulfate 2 mg Q4H PRN IV 01/05/25 11:15 01/05/25 15:16 UNV Hydromorphone HCl 0.25 mg Q10M PRN IV 01/05/25 11:15 01/05/25 11:46 UNV Morphine Sulfate 1 mg Q30M PRN IV 01/05/25 11:15 01/05/25 13:16 UNV Examination Physical examination: General Appearance: Alert, Oriented X3, Cooperative, No acute distress HEENT: Atraumatic, PERRLA, EOMI, Mucous membrane moist/pink Respiratory: Tunnel catheter on the right side of the chest, Clear to auscultation, Normal air movement Cardiovascular: Regular rate, Normal S1, Normal S2, No murmurs, no chest wall tenderness Abdominal: Normal bowel sounds, Soft, No tenderness, No hepatospenomegaly, No masses Extremities: Ulcer on the plantar surface of the left foot covered with bandage, No clubbing, No cyanosis, No edema, Normal pulses, No tenderness/swelling Skin: No rashes, No breakdown, No significant lesion Neuro: Normal gait, Normal speech, Strength at 5/5 X4 ext, Normal tone, Sensation intact, Cranial nerves 3-12 NL, Reflexes 2+ Psych/Mental Status: Mental status NL, Mood NL laboratory and microbiology Laboratory Tests 01/05/25 06:14 Test 01/05/25 06:14 Range/Units Serum Glucose 133 H 74-106 mg/dL Microbiology Date/Time Source Procedure Growth Status 01/03/25 15:24 Foot Left Gram Stain - Final Resulted 01/03/25 15:24 Foot Left Anaerobic Culture - Preliminary Resulted 01/03/25 15:24 Aerobic Culture - Preliminary Enterobacter cloacae Proteus mirabilis Resulted 01/02/25 16:40 Blood Blood Culture - Preliminary NO GROWTH AFTER 48 HOURS OF INCUBATION. Resulted Labs and/or images reviewed: Labs reviewed by me, Image(s) reviewed by me Problem List/Assessment/Plan Problem List/Assessment/Plan Assessment and plan: # ESRD on hemodialysis # Hypokalemia resolved # Diabetic ulcer of the left foot # Sepsis due to above # Peripheral artery disease # Nicotine dependence # Methamphetamine abuse disorder Plan: - Hemodialysis yesterday - S/P I&D of left foot day 2 - Continue IV antibiotics and other management as per primary - Counseled patient regarding quit smoking, drug abuse and rehabilitation - Strict I&O - Monitor BMP Thank you so much for the opportunity to consult on your patient. Nephro team will follow the patient. In case of any questions or concerns please feel free to reach out. Plan discussed with Dr. Pineda. The patient and caregiver team agreed to the plan. Plan discussed with: Patient, Other My Orders My Orders Orders - ROSIE CENTENO Procedure Category Date Status Time Communication Order ORDERS 01/04/25 Transmitted 14:03 Dietary Evaluation Review Comments: Nutrition Recommendation: 1) Advance to [facility] 75gm + renal standard diet 2) Nephro-tila 1 tab daily 3) Kristopher 1 pk & Pro-stat 1 pk daily 4) Monitor NPO status, lab values, weight trend, and I/O Expected Outcomes/Goals: To meet >75% estimated needs Wound to improve Fu 2-3 days ROSIE CENTENO Jan 05, 2025 11:31
[2025-01-05] MEDS ORDERED: MIDAZOLAM HCL 2MG/2ML 2ml VIAL (1mg/ml) ONE (11:33)
[2025-01-05] MEDS ORDERED: fentaNYL CITRATE 100 MCG/2 ML VL ONE (11:33)
[2025-01-05] MEDS ORDERED: LIDOCAINE 1% INJ PF 5ML AMP ONE (11:33)
[2025-01-05] MEDS ORDERED: SODIUM CHLORIDE LOCK 10 ML ONE (11:33)
[2025-01-05] MEDS ORDERED: PROPOFOL 10 MG/ML 20 ML IV ONE (11:33)
[2025-01-05] MEDS ORDERED: ONDANSETRON HCL 4 MG/2 ML VIAL ONE (11:33)
[2025-01-05] MEDS ORDERED: MORPHINE SULFATE INJ 2 MG/ml SYRG IV PRN (12:00)
[2025-01-05] MEDS: BUPIVACAINE 0.5% P/F INJ 10 ML VIAL ONE (12:20)
--- NOTE | 2025-01-05 12:38 | DVHOP2 ---
Operative Report - 2 Report Details Date: 01/05/25 Preop Diagnosis: 1. Left foot osteomyelitis 2. Left foot abscess 3. Left foot cellulitis 4. Left foot diabetic ulcer Postop Diagnosis: Same as preop Surgeon: Manuel Skinner MD Anesthesiologist: See anesthesia Anesthesia: Mac Consent: The patient was informed of the risks and benefits of the procedure. These include but are not limited to complications of anesthesia, postoperative infection, incomplete relief of symptoms, recurrence of symptoms, damage to blood vessels, nerves and tendons, deep venous thrombosis, pulmonary embolism and possible need for repeat surgery in the future. Complications: None Estimated Blood Loss: Minimal Fluids: See anesthesia Findings: Consistent with diagnosis Indications for Surgery: Worsening foot wound Name of Procedure Performed 1. Left foot I*D to bone (80006) 2. Left foot delayed closure (91307) Procedure Details Procedure Details: PRE-PROCEDURE INFORMATION: In the pre-op holding area, the extremity to be operated on was clearly marked and the patient verified correct laterality of the marking. The patient was transferred to the OR table and placed in a supine position. A timeout was performed in which identification of the correct patient, procedure, location, and materials was done. The left foot and leg were prepped and draped in normal sterile fashion. DESCRIPTION OF PROCEDURE: Attention was directed to the left where area of fluctuance was noted. An incision was made over this area and was deepened through blunt dissection. The incision was deepened to the level of abscess and bone. Care was taken to the dissection to avoid any neurovascular and tendinous structures. The incision was deepened to the bone, and the abscess appeared to be purulent fluid consistent with pus. The cortices of the bone was then removed with rongeur an all necrotic tissue. After the abscess was drained, the area was irrigated with 3 L normal saline using cysto tubing. A delayed closure was then performed using 2-0 nylon after was deemed appropriate with no longer concern for infection. Unable to close the entire way as significant tissue loss. POSTOPERATIVE INFORMATION: The patient tolerated the above noted procedure and anesthesia well and was transferred to the PACU with vital signs stable, and vascular status intact with capillary refill intact to all digits. Patient will need 6 weeks of IV antibiotics. Patient will need to have a wound VAC for the significant tissue loss. If we can get that established inpatient or outpatient. Patient should follow up with me in 1 week. Condition Good Disposition Still a Patient Visit Coding Podiatry Date of Service if different f: Jan 05, 2025 Billing Provider: MANUEL SKINNER DPM Podiatry Common Visit Codes: PROCEDURE ONLY MANUEL SKINNER DPM Jan 05, 2025 12:38
[2025-01-05] MEDS: ACCU-CHEK COMFORT CURVE STRIP VI ONE (13:18)
[2025-01-05] MEDS: KETOROLAC TROMETH 30 MG/ML 1ML VIAL IV ONE (13:18)
[2025-01-05] MEDS: ceFAZolin 2 GM/D5W50ml 50 ML IV ONE (13:19)
--- NOTE | 2025-01-05 15:07 | DVHDSRES ---
Discharge Summary Date of Admission Resident Creating Document: ROSIE CENTENO RESIDENT Jan 02, 2025 at 21:51 Date of Discharge: Jan 05, 2025 Admitting Diagnosis # Sepsis due to Bilateral foot ulcers with cellulitis and probable osteomyelitis #Bilateral foot ulcers with cellulitis and Osteomyelitis Labs/Diagnostic Data: Laboratory Results Test 01/05/25 10:36 01/05/25 06:14 01/03/25 13:00 01/03/25 10:22 POC Glucose 89 mg/dl (70-106) White Blood Count 10.7 10^3/uL (4.4-10.8) Red Blood Count 2.55 10^6/uL (4.5-5.90) Hemoglobin 8.2 g/dL (13.5-17.5) Hematocrit 24.6 % (41.0-53.0) Mean Corpuscular Volume 96.4 fL (80.0-100.0) Mean Corpuscular Hemoglobin 32.3 pg (28.0-32.0) Mean Corpuscular Hemoglobin Concent 33.5 g/dL (32.0-36.0) Red Cell Distribution Width 14.6 % (11.8-14.3) Platelet Count 226 10^3/uL (140-450) Mean Platelet Volume 7.4 fL (6.9-10.8) Neutrophils (%) (Auto) 77.3 % (37.0-80.0) Lymphocytes (%) (Auto) 11.9 % (10.0-50.0) Monocytes (%) (Auto) 5.4 % (0.0-12.0) Eosinophils (%) (Auto) 4.8 % (0.0-7.0) Basophils (%) (Auto) 0.6 % (0.0-2.0) Neutrophils # (Auto) 8.3 10 ^3/uL (1.6-8.6) Lymphocytes # (Auto) 1.3 10 ^3/uL (0.4-5.4) Monocytes # (Auto) 0.6 10 ^3/uL (0-1.3) Eosinophils # (Auto) 0.5 10 ^3/uL (0-0.8) Basophils # (Auto) 0.1 10 ^3/uL (0-0.2) Nucleated Red Blood Cells 0.0 % Erythrocyte Sedimentation Rate 72 mm/hr (0-20) Sodium Level 139 mmol/L (136-145) Potassium Level 4.2 mmol/L (3.5-5.1) Chloride Level 104 mmol/L (98-107) Carbon Dioxide Level 24 mmol/L (20-31) Anion Gap 11 (5-15) Blood Urea Nitrogen 19 mg/dL (9-23) Creatinine 3.34 mg/dL (0.700-1.30) Glomerular Filtration Rate Calc 21 mL/min (>90) BUN/Creatinine Ratio 5.7 (10.0-20.0) Serum Glucose 133 mg/dL (74-106) Calcium Level 8.0 mg/dL (8.7-10.4) Magnesium Level 2.1 mg/dL (1.6-2.6) Total Bilirubin 3.2 mg/dL (0.2-1.0) Aspartate Amino Transferase (AST) 23 U/L (13-40) Alanine Aminotransferase (ALT) 9 U/L (7-40) Alkaline Phosphatase 510 U/L (46-116) Total Protein 5.8 g/dL (5.7-8.2) Albumin 2.7 g/dL (3.2-4.8) Random Vancomycin Level 15.4 ug/mL (5-10) Phosphorus Level 5.0 mg/dL (2.4-5.1) Hepatitis B Surface Antigen Negative (Negative) Hepatitis C Antibody Negative (Negative) Test 01/03/25 00:00 01/02/25 22:47 01/02/25 21:58 01/02/25 20:47 Urine Color Yellow (Yellow) Urine Clarity Clear (Clear) Urine pH 6.0 (5.0-9.0) Urine Specific [place] 1.011 (1.001-1.035) Urine Protein 2+ (Negative) Urine Ketones Negative (Negative) Urine Blood 1+ /uL (Negative) Urine Nitrite Negative (Negative) Urine Bilirubin Negative (Negative) Urine Urobilinogen Normal mg/dL (Negative) Urine Leukocyte Esterase Negative /uL (Negative) Urine RBC 6 /hpf (0 - 3) Urine Microscopic WBC 4 /HPF (0-3) Urine Squamous Epithelial Cells Few /hpf (<5) Urine Bacteria None seen /hpf (None Seen) Urine Glucose 4+ mg/dL (Normal) Urine Opiates Screen Neg (NEGATIVE) Urine Fentanyl Screen Neg (NEGATIVE) Urine Barbiturates Screen Neg (NEGATIVE) Urine Phencyclidine Screen Neg (NEGATIVE) Urine Amphetamines Screen Pos (NEGATIVE) Urine Benzodiazepines Screen Neg (NEGATIVE) Urine Cocaine Screen Neg (NEGATIVE) Urine Cannabinoids Screen Neg (NEGATIVE) Reticulocyte Count (auto) 4.13 % (0.5-1.5) Influenza Type A Antigen Negative (Negative) Influenza Type B Antigen Negative (Negative) SARS-CoV-2 Antigen (Rapid) Negative (NEGATIVE) Lactic Acid Level 1.8 mmol/L (0.4-2.0) Test 01/02/25 18:28 01/02/25 15:18 Prothrombin Time 11.4 sec (9.3-11.8) Prothrombin Time INR 1.08 (0.9-1.15) Activated Partial Thromboplast Time 31.0 SEC (24.5-34.5) Hemoglobin A1c 5.4 % A1C (<5.7) Serum Osmolality 301 mOsm/kg (278-298) Ferritin 20.2 ng/mL (22-322) Troponin I High Sensitivity 7 ng/L (</=54) C-Reactive Protein High Sensitivity 19.47 mg/dL (<1.0) Triglycerides Level 137 mg/dL (< 150) Cholesterol Level 141 mg/dL (< 200) LDL Cholesterol 85 mg/dL (< 100) HDL Cholesterol 37 mg/dL (40-59) Lipase 41 U/L (12-53) Vitamin B12 Level 1072 pg/mL (211-911) Vitamin D 25-Hydroxy 32.0 ng/mL (30.0-100) Folic Acid 13.14 ng/mL (>5.38) Thyroid Stimulating Hormone (TSH) 4.95 uIU/mL (0.55-4.78) Haptoglobin 366 mg/dL (29-370) Iron Level 30 ug/dL (65-175) Total Iron Binding Capacity 159 ug/dL (250-425) Percent Iron Saturation 18.9 % (20-55) Other Laboratory Tests 01/05/25 06:14 Brief Hx & Hospital Course: Patient is 54-year-old male with past medical history of diabetes mellitus, ESRD on dialysis (M, W, F), GERD, liver abscess, presented to the ER for worsening left foot ulcer. Patient went for appointment with Dr. Thornton, where he was informed that has foot ulcers infected and was sent to the ER. Patient complained of worsening pain in foot, which he 1st noticed 1 month ago. He was hospitalized for 1 month at the [facility] for a liver abscess, discharged with no antibiotics nor home medication. He also complained of diarrhea since last 2 weeks, reports loose, watery, runny diarrhea, 6-10 times daily, no blood seen. Patient's lab workup revealed leukocytosis with WBC 18.2, anemia with a hemoglobin 8.2, hypokalemia potassium 2.5, increased anion gap 19, serum creatinine 4.05, GFR 17, BUN 33, lactic acidosis with lactic acid 2.4, 30, ferritin 20.2, TIBC 159, UDS positive for amphetamine. Patient tested negative for influenza type a and B, COVID-19, hepatitis-B surface antigen, hepatitis-C antibody. CT left foot revealed- Findings as above suggestive of infectious / inflammatory process involving the plantar aspect of the foot. No definite osseous erosion, though MRI would be more sensitive for osteomyelitis as clinically indicated. Necrotizing fasciitis cannot be excluded on the basis of CT. Ultrasound of the liver revealed- Prior cholecystectomy with stent seen in the common bile duct. Gas is seen in the left hepatic lobe, which may be referable to pneumobilia, though portal venous gas cannot be excluded. Arterial Doppler of the bilateral lower extremity revealed-Greater than 75% stenosis of the right dorsalis pedis based on peak systolic velocity criteria. Nonvisualization of the right posterior tibial artery and left dorsalis pedis. Bilateral monophasic arterial waveforms are suggestive of underlying peripheral arterial disease. Patient was initially treated with the IV antibiotic Zosyn and vancomycin for left foot wound infection, abscess, osteomyelitis. Patient's dialysis during hospital course. Patient was followed by city dispatcher at hospital. Patient had incision and drainage by Podiatry Dr. Wynn and later on wound closure. Wound culture revealed Enterobacter Colace and Proteus mirabilis, switched to IV antibiotic cefepime. Patient is being discharged to SNF for IV antibiotic cefepime 1 g daily for 5 more weeks with wound vacs. Patient was hemodynamically stable on discharge. Patient was advised to follow up with the city dispatcher, with the PCP/MD at SNF. Consults/Reason for consult [address] [address] Ph: [phone] DIAGNOSTIC IMAGING Diagnostic Imaging Report : [id number] Signed PATIENT: OLEGARIO HARDIN ACCT: [id number] UNIT: [id number] : 1970 LOC: [facility] AGE / SEX: 54 / M ADM STATUS: ADM IN SERVICE 1 ORDERING PHYSICIAN: NATACHA RAO RESIDENT PROCEDURE(s): BLEAD - BiLat Low Ext Art Duplex REASON: PAD ORDER NUMBER(s): [id number], ACCESSION NUMBER(s): [id number] Bilateral Lower Extremity Arterial Duplex Clinical History: PAD Comparison: US VENOUS EXTREMITY LOWER LTD on DOS: 11/08/24, RIGHT US VENOUS EXTREMITY UNILAT on DOS: 01/30/23 Technique: Duplex Doppler evaluation including color Doppler and spectral/pulsed waveform analysis of the lower extremity arteries was performed. Findings: RIGHT: Peak systolic velocities are as follows: 397 cm/sec in the dorsalis pedis. Nonvisualization of flow in the right posterior tibial artery. All other velocities are less than 150 cm/sec. The waveforms are monophasic with diastolic flow. LEFT: Peak systolic velocities are as follows: Less than 150 cm/sec. Dorsalis pedis is not visualized. The waveforms are monophasic with diastolic flow. IMPRESSION: Greater than 75% stenosis of the right dorsalis pedis based on peak systolic velocity criteria. Nonvisualization of the right posterior tibial artery and left dorsalis pedis. Bilateral monophasic arterial waveforms are suggestive of underlying peripheral arterial disease. REFERENCE VALUES, [facility]) vascular Imaging Lab Criteria: Peak systolic velocity ranges (in cm/sec) are as follows: <150 cm/s - <20 % stenosis 150-200 cm/s - 20-49% stenosis 200-300 cm/s - 50-75% stenosis >300 cm/s -> 75% stenosis ATED BY: SEAN KHAN MD DICTATED DATE/TIME: 10/01/25 1008 SIGNED BY: SEAN KHAN MD SIGNED DATE/TIME: 01/03/251007 CC: [address] [address] Ph: [phone] DIAGNOSTIC IMAGING Diagnostic Imaging Report : [id number] Signed PATIENT: OLEGARIO HARDIN ACCT: [id number] UNIT: [id number] : 1970 LOC: OVERFLOW ROOM / BED: [address] [place] [address] AGE / SEX: 54 / M ADM STATUS: ADM IN SERVICE 50 ORDERING PHYSICIAN: NATACHA RAO RESIDENT PROCEDURE(s): LFTCT - CT L FOOT WO CONTRAST REASON: Diabetic foot ulcer, rule out osteomyelitis ORDER NUMBER(s): [id number], ACCESSION NUMBER(s): [id number] EXAM: CT CT L FOOT WO CONTRAST HISTORY: Diabetic foot ulcer, rule out osteomyelitis COMPARISON: CT LOWER EXTREMITY WITHOUT DOMENICO on DOS: 11/07/24, XR FOOT 3+ VIEWS on DOS: 03/17/22 TECHNIQUE: Noncontrast axial CT images of the left foot were performed. Sagittal and coronal reformatted images were obtained. This CT exam was performed using one or more of the following dose reduction techniques: Automated exposure control, adjustment of the mA and/or kv according to patient size, or the use of iterative reconstruction techniques. Radiation Dose Information: CT Dose: CTDI volume is 7.75 mGy. Dose-length product is 2.73 mGy*cm FINDINGS: There is soft tissue gas, stranding, and swelling about the plantar aspect of the forefoot. No definite osseous erosion is seen. No acute displaced fracture. The alignment appears maintained. IMPRESSION: 1. Findings as above suggestive of infectious / inflammatory process involving the plantar aspect of the foot. No definite osseous erosion, though MRI would be more sensitive for osteomyelitis as clinically indicated. Necrotizing fasciitis cannot be excluded on the basis of CT. Further clinical correlation is suggested. ATED BY: DEBO TRAORE MD DICTATED DATE/TIME: 01/03/2512 SIGNED BY: DEBO TRAORE MD SIGNED DATE/TIME: 01/03/2512 CC: [address] [address] Ph: [phone] DIAGNOSTIC IMAGING Diagnostic Imaging Report : [id number] Signed PATIENT: OLEGARIO HARDIN ACCT: [id number] UNIT: [id number] : 1970 LOC: OVERFLOW ROOM / BED: [address] [place] [address] AGE / SEX: 54 / M ADM STATUS: ADM IN SERVICE 50 ORDERING PHYSICIAN: NATACHA RAO RESIDENT PROCEDURE(s): LIVUS - LIVER REASON: Sepsis with history of liver abscess ORDER NUMBER(s): [id number], ACCESSION NUMBER(s): [id number] ULTRASOUND DOPPLER CLINICAL HISTORY: Sepsis with history of liver abscess TECHNIQUE: Doppler examination of the abdomen was performed. COMPARISON: CT ABDOMEN PELVIS WITH on DOS: 12/08/24, US ABDOMEN on DOS: 12/08/24, US GALLBLADDER on DOS: 11/08/24, CT ABDOMEN PELVIS WITHOUT on DOS: 11/08/24, CT [id number] W/O on DOS: 10/12/24 FINDINGS: The liver measures 14.7 cm. Small hyperechoic foci are seen within the liver suggesting gas. No focal lesion. Prior cholecystectomy. The common bile duct measures 7 mm, slightly dilated. A stent is seen in the common bile duct. Visualized portions of the pancreas are unremarkable. The right kidney measures 8.5 cm without hydronephrosis, stones, or renal mass. IMPRESSION: 1. Prior cholecystectomy with stent seen in the common bile duct. Gas is seen in the left hepatic lobe, which may be referable to pneumobilia, though portal venous gas cannot be excluded. Consider CT in further assessment as clinically indicated. ATED BY: DEBO TRAORE MD DICTATED DATE/TIME: 01/02/252347 SIGNED BY: DEBO TRAORE MD SIGNED DATE/TIME: 01/02/252347 CC: [address] [address] Ph: [phone] DIAGNOSTIC IMAGING Diagnostic Imaging Report : [id number] Signed PATIENT: OLEGARIO HARDIN ACCT: [id number] UNIT: [id number] : 1970 LOC: ER ROOM / BED: / AGE / SEX: 54 / M ADM STATUS: REG ER SERVICE 1455 ORDERING PHYSICIAN: GOLDEN KELLY MD PROCEDURE(s): CXRP - CHEST PORTABLE REASON: sob ORDER NUMBER(s): [id number], ACCESSION NUMBER(s): [id number] CHEST PORTABLE, HISTORY: sob COMPARISON: XR CHEST 1 VIEW on DOS: 12/08/24, XR CHEST 1 VIEW on DOS: 11/07/24, CT [id number] W/O on DOS: 10/12/24 XR CHEST 1 VIEW on DOS: 12/08/24, XR CHEST 1 VIEW on DOS: 11/07/24, CT [id number] W/O on DOS: 10/12/24 TECHNICAL DATA: 1 view of the chest was obtained. FINDINGS: Lines and tubes: Right chest wall dialysis catheter is present with tip in the SVC. Cardiomediastinal silhouette: normal Pulmonary vasculature: normal Lung expansion: normal Lung airspace: normal Lung interstitium: normal Pleura: normal Pneumothorax: no Bones: Unremarkable Other: no IMPRESSION: No acute intrathoracic abnormality. ATED BY: VASILIY THOMPSON MD DICTATED DATE/TIME: 01/02/25 154 SIGNED BY: VASILIY THOMPSON MD SIGNED DATE/TIME: 01/02/25 154 CC: Operations or Procedures Patient: OLEGARIO HARDIN Acct: [id number] : 1970 Loc: [facility] Age/Sex: 54/M [facility] A Attending Phy: TAE AWAD RESIDENT Operative Report - 2 Report Details Date: 01/05/25 Preop Diagnosis: 1. Left foot osteomyelitis 2. Left foot abscess 3. Left foot cellulitis 4. Left foot diabetic ulcer Postop Diagnosis: Same as preop Surgeon: Olegario Thornton MD Anesthesiologist: See anesthesia Anesthesia: Mac Consent: The patient was informed of the risks and benefits of the procedure. These include but are not limited to complications of anesthesia, postoperative infection, incomplete relief of symptoms, recurrence of symptoms, damage to blood vessels, nerves and tendons, deep venous thrombosis, pulmonary embolism and possible need for repeat surgery in the future. Complications: None Estimated Blood Loss: Minimal Fluids: See anesthesia Findings: Consistent with diagnosis Indications for Surgery: Worsening foot wound Name of Procedure Performed 1. Left foot I*D to bone (77909) 2. Left foot delayed closure (74705) Procedure Details Procedure Details: PRE-PROCEDURE INFORMATION: In the pre-op holding area, the extremity to be operated on was clearly marked and the patient verified correct laterality of the marking. The patient was transferred to the OR table and placed in a supine position. A timeout was performed in which identification of the correct patient, procedure, location, and materials was done. The left foot and leg were prepped and draped in normal sterile fashion. DESCRIPTION OF PROCEDURE: Attention was directed to the left where area of fluctuance was noted. An incision was made over this area and was deepened through blunt dissection. The incision was deepened to the level of abscess and bone. Care was taken to the dissection to avoid any neurovascular and tendinous structures. The incision was deepened to the bone, and the abscess appeared to be purulent fluid consistent with pus. The cortices of the bone was then removed with rongeur an all necrotic tissue. After the abscess was drained, the area was irrigated with 3 L normal saline using cysto tubing. A delayed closure was then performed using 2-0 nylon after was deemed appropriate with no longer concern for infection. Unable to close the entire way as significant tissue loss. POSTOPERATIVE INFORMATION: The patient tolerated the above noted procedure and anesthesia well and was transferred to the PACU with vital signs stable, and vascular status intact with capillary refill intact to all digits. Patient will need 6 weeks of IV antibiotics. Patient will need to have a wound VAC for the significant tissue loss. If we can get that established inpatient or outpatient. Patient should follow up with me in 1 week. Condition Good Disposition 2 Still a Patient Visit Coding Podiatry Date of Service if different f: Jan 05, 2025 Billing Provider: OLEGARIO THORNTON DPM Podiatry Common Visit Codes: PROCEDURE ONLY OLEGARIO THORNTON DPM Jan 05, 2025 12:38 DICTATED BY:OLEGARIO THORNTON DPM DICTATED DATE/TIME:01/05/25 1238 ELECTRONICALLY SIGNED BY:OLEGARIO THORNTON DPM 01/05/25 1238 ELECTRONICALLY CO-SIGNED BY: Patient: OLEGARIO HARDIN Acct: [id number] : 1970 Loc: TE[facility] Age/Sex: 54/M [id number] Progress Note Date Seen: Jan 04, 2025 Resident Creating Document: ROSIE CENTENO Medical Necessity Reason Pt with a Central, PICC or Fol: No Subjective Review of Systems Patient was seen and examined on the bedside. He is alert oriented x3. Complaint of generalized weakness and left foot pain. S/P I&D of left foot day 1. Patient is clear for PICC line from nephrology Objective vital signs Vital Sign Date Time Temp Pulse Resp B/P (MAP) Pulse Ox O2 Delivery O2 Flow Rate FiO2 01/04/25 17:13 88 18 130/67 01/04/25 16:48 97.8 100 97.8 01/04/25 07:57 Room Air* 0 21 Total Intake and Output 01/03/25 01/03/25 01/04/25 15:00 23:00 07:00 Intake Total 300 ml 100 ml 300 ml Output Total 700 ml 1600 ml Balance 300 ml -600 ml -1300 ml medications Current Medications Medications Dose Ordered Sig/Vargas Route Start Time Stop Time Status Last Admin Dose Admin Zinc Sulfate 220 mg DAILY PO 01/03/25 10:00 01/04/25 09:06 220 MG Ascorbic Acid 500 mg BID PO 01/02/25 22:00 01/04/25 09:06 500 MG Acetaminophen 650 mg Q6HP PRN PO 01/02/25 22:00 Piperacillin Sod/ Tazobactam Sod 100 ml @ 25 mls/hr Q12H IV 01/03/25 01:00 01/04/25 12:34 25 MLS/HR Vancomycin HCl 0 ml @ 0 mls/hr UD IV 01/02/25 22:00 Diagnostic Test (Pha) 1 strip ACHS 01/02/25 22:00 01/04/25 16:31 1 STRIP Insulin Human Regular ACHS SC 01/02/25 22:00 01/04/25 10:32 3 UNITS Dextrose 50 ml UD PRN IV 01/02/25 22:00 Heparin Sodium (Porcine) 5,000 units Q12HR SC 01/03/25 10:00 01/04/25 09:09 5,000 UNITS Morphine Sulfate 2 mg Q6HPRN PRN IV 01/03/25 02:15 Cancel Mupirocin 1 applic BID EACHNOSTRI 01/03/25 22:00 01/08/25 21:59 01/04/25 09:06 1 APPLIC Morphine Sulfate 2 mg Q6HPRN PRN IV 01/04/25 09:30 01/04/25 17:13 2 MG Magnesium Sulfate/ Dextrose 100 ml @ 100 mls/hr Q1HR IV 01/04/25 18:00 01/04/25 19:59 01/04/25 17:37 100 MLS/HR Examination Physical examination: General Appearance: Alert, Oriented X3, Cooperative, No acute distress HEENT: Atraumatic, PERRLA, EOMI, Mucous membrane moist/pink Respiratory: Tunnel catheter on the right side of the chest, Clear to auscultation, Normal air movement Cardiovascular: Regular rate, Normal S1, Normal S2, No murmurs, no chest wall tenderness Abdominal: Normal bowel sounds, Soft, No tenderness, No hepatospenomegaly, No masses Extremities: Ulcer on the plantar surface of the left foot covered with bandage, No clubbing, No cyanosis, No edema, Normal pulses, No tenderness/swelling Skin: No rashes, No breakdown, No significant lesion Neuro: Normal gait, Normal speech, Strength at 5/5 X4 ext, Normal tone, Sensation intact, Cranial nerves 3-12 NL, Reflexes 2+ Psych/Mental Status: Mental status NL, Mood NL laboratory and microbiology Laboratory Tests 01/04/25 14:25 01/04/25 10:42 Test 01/04/25 14:25 Range/Units Serum Glucose 109 H 74-106 mg/dL Microbiology Date/Time Source Procedure Growth Status 01/03/25 15:24 Foot Left Gram Stain - Final Resulted 01/03/25 15:24 Foot Left Anaerobic Culture - Preliminary Resulted 01/03/25 15:24 Foot Left Aerobic Culture - Preliminary Resulted 01/02/25 16:40 Blood Blood Culture - Preliminary NO GROWTH AFTER 48 HOURS OF INCUBATION. Resulted Problem List/Assessment/Plan Problem List/Assessment/Plan Assessment and plan: # ESRD on hemodialysis # Hypokalemia # Diabetic ulcer of the left foot # Sepsis due to above # Peripheral artery disease # Nicotine dependence # Methamphetamine abuse disorder Plan: - Scheduled for hemodialysis today - Replaced potassium - S/P I&D of left foot day 1 - Continue IV antibiotics and other management as per primary - Counseled patient regarding quit smoking, drug abuse and rehabilitation - Strict I&O - Monitor BMP Thank you so much for the opportunity to consult on your patient. Nephro team will follow the patient. In case of any questions or concerns please feel free to reach out. Plan discussed with Dr. Courtney. The patient and caregiver team agreed to the plan. Addendum Patient seen and examined, plan discussed with resident. Agree with above, we will follow closely Plan discussed with: Patient, Other (RN) My Orders My Orders Orders - ROSIE CENTENO Procedure Category Date Status Time Communication Order ORDERS 01/04/25 Transmitted 14:03 Dietary Evaluation Review Comments: Nutrition Recommendation: 1) Advance to [facility] [place] 75gm + renal standard diet 2) Nephro-tila 1 tab daily 3) Kristopher 1 pk & Pro-stat 1 pk daily 4) Monitor NPO status, lab values, weight trend, and I/O Expected Outcomes/Goals: To meet >75% estimated needs Wound to improve Fu 2-3 days ROSIE CENTENO Jan 04, 2025 17:50 MCKAY COURTNEY MD Jan 04, 2025 22:45 DICTATED BY:ROSIE CENTENO DICTATED DATE/TIME:01/04/251749 ELECTRONICALLY SIGNED BY:ROSIE CENTENO 01/04/251750 I was physically present for the diaz portions of the service provided to patient by ROSIE CENTENO I have reviewed the documentation, discussed the case with resident and agree with the resident's documentation except as noted. ELECTRONICALLY CO-SIGNED BY:MCKAY COURTNEY MD 01/04/25 2445 E/M VISIT CODING PERFORMED BY:MCKAY COURTNEY MD Patient: OLEGARIO HARDIN Acct: [id number] : 1970 Loc: TELE[facility] Age/Sex: 54/M Room: 0223T / Bed: A Attending Phy: TAE AWAD Operative Report - 2 Report Details Date: 01/03/25 Preop Diagnosis: 1. Left foot osteomyelitis 2. Left foot abscess 3. Left foot cellulitis 4. Left foot diabetic ulcer Postop Diagnosis: Same as preop Surgeon: Olegario Thornton MD Anesthesiologist: See anesthesia Anesthesia: General Consent: The patient was informed of the risks and benefits of the procedure. These include but are not limited to complications of anesthesia, postoperative infection, incomplete relief of symptoms, recurrence of symptoms, damage to blood vessels, nerves and tendons, deep venous thrombosis, pulmonary embolism and possible need for repeat surgery in the future. Complications: None Estimated Blood Loss: Minimal Fluids: See anesthesia Findings: Consistent with the diagnosis Indications for Surgery: Worsening foot ulcer Name of Procedure Performed 1. Left foot I*D to bone (28027) Procedure Details Procedure Details: PRE-PROCEDURE INFORMATION: In the pre-op holding area, the extremity to be operated on was clearly marked and the patient verified correct laterality of the marking. The patient was transferred to the OR table and placed in a supine position. A timeout was performed in which identification of the correct patient, procedure, location, and materials was done. The left foot and leg were prepped and draped in normal sterile fashion. DESCRIPTION OF PROCEDURE: Attention was directed to the left where area of fluctuance was noted. An incision was made over this area and was deepened through blunt dissection. The incision was deepened to the level of abscess and bone. Care was taken to the dissection to avoid any neurovascular and tendinous structures. The incision was deepened to the bone, and the abscess appeared to be purulent fluid consistent with pus. The cortices of the bone was then removed with rongeur an all necrotic tissue. After the abscess was drained, the area was irrigated with 3 L normal saline using cysto tubing. Deep cultures were then obtained from the wound. The area was then inspected and any areas of tracking, especially along the tendons were also drained. The wound was packed with Betadine-soaked gauze and we will need to be closed at a later date. POSTOPERATIVE INFORMATION: The patient tolerated the above noted procedure and anesthesia well and was transferred to the PACU with vital signs stable, and vascular status intact with capillary refill intact to all digits. Patient will need 6 weeks of IV antibiotics. Deep cultures were taken. Patient will return on Wednesday for possible closure if repeat I&D. Condition Good Disposition 2 Still a Patient Visit Coding Podiatry Date of Service if different f: Jan 03, 2025 Billing Provider: OLEGARIO THORNTON DPM Podiatry Common Visit Codes: PROCEDURE ONLY OLEGARIO THORNTON DPM Jan 03, 2025 15:26 DICTATED BY:OLEGARIO THORNTON DPM DICTATED DATE/TIME:01/03/251525 ELECTRONICALLY SIGNED BY:OLEGARIO THORNTON DPM 01/03/251525 ELECTRONICALLY CO-SIGNED BY: Condition at Discharge: Stable Final Diagnosis/Problems List # Sepsis due to Bilateral foot ulcers with cellulitis and probable osteomyelitis #Bilateral foot ulcers with cellulitis and Osteomyelitis # PAD #Diabetic foot ulcer #Lactic acidosis # neutrophilic leukocytosis #History of liver abscess #Acute gastroenteritis #Transaminitis with elevated ALP # hypokalemia-replenished # acute gastroenteritis, rule out C diff infection #Normocytic normochromic anemia, likely due to anemia of chronic disease #ESRD on hemodialysis #Hypovolemic Hyponatremia #Diabetes mellitus type 2 with Hyperglycemia #Polysubstance abuse Discharge Disposition: Half-Way Facility Discharge Instruct/Medications Diet: Consistent carbohydrate, Renal Follow Up/Referral: Please follow up with the your city dispatcher in 1-2 weeks Please follow up with the PCP/MD at [facility] CBC, CMP, ESR, CRP every week, have the reports fax with the PCP/MD at [facility] to review the lab report Medications: Cefepime as prescribed Others as above No Active Prescriptions or Reported Meds Discharge Statement: "Patient was advised to return to the ER or call 911 if any headaches, dizziness, shortness of breath, chest pain, abdominal pain, bleeding, fevers, or worsening of medical condition. Patient was counseled about treatment plan, medications, possible side effects, patientverbalized understanding. All questions were answered to the best of my ability. This discharge took greater then 30 minutes in planning, reviewing documentation, counseling the patient, and discussing with other team members." ASSESSMENT ASSESSMENT Assessment Same as preop Date of Service: Jan 05, 2025 Billing Provider: CHEYENNE GONZALEZ MD Common Visit Codes: 66867-ISI/[id number] DISCH DAY >30min TAE AWAD Jan 05, 2025 15:07 CHEYENNE GONZALEZ MD Jan 05, 2025 19:59
[2025-01-05] MEDS ORDERED: VANCOMYCIN 500mg/100mL 100 ML IV ONE (17:00)
[2025-01-05] MEDS: HYDROcodone-ACET 5/325MG TAB PO PRN (21:45)
[2025-01-06] VITALS (8 sets, daily range): BP systolic 64–133; BP diastolic 53–74; PULSE 71–89; RESP 16–20; TEMP 97.7–98.9; O2SAT 99–100
[2025-01-06 06:39] LABS: Chloride 102 mmol/L (98-107); Potassium 3.7 mmol/L (3.5-5.1); Sodium 137 mmol/L (136-145)
[2025-01-06 06:40] LABS: Anion Gap 13 (5-15); Carbon Dioxide 22 mmol/L (20-31)
[2025-01-06 06:42] LABS: Calcium 7.6 mg/dL (8.7-10.4)
[2025-01-06 06:45] LABS: BUN/Creatinine Ratio 7.1 (10.0-20.0); Magnesium 1.8 mg/dL (1.6-2.6)
[2025-01-06 06:46] LABS: INR 1.04 (0.9-1.15); Partial Thromboplastin Time 34.7 SEC (24.5-34.5); Prothrombin Time 11.0 sec (9.3-11.8)
[2025-01-06 06:48] LABS: Blood Urea Nitrogen 25 mg/dL (9-23); Glucose 128 mg/dL (74-106)
[2025-01-06] MEDS: CEFEPIME 1GM/50ML 50 ML IV SCH (10:55)
--- NOTE | 2025-01-06 10:56 | DVHPN2 ---
Progress Note Date Seen: Jan 06, 2025 Medical Necessity Reason Pt with a Central, PICC or Fol: No Subjective Changes from previous H/P or p: No Changes Objective vital signs Vital Sign Date Time Temp Pulse Resp B/P (MAP) Pulse Ox O2 Delivery O2 Flow Rate FiO2 01/06/25 08:39 98.9 77 20 100/55 (70) 100 98.9 01/05/25 20:10 Room Air* 0 21 Total Intake and Output 01/05/25 01/05/25 01/06/25 15:00 23:00 07:00 Intake Total 100 ml 200 ml Output Total 250 ml Balance 100 ml -50 ml medications Current Medications Medications Dose Ordered Sig/Vargas Route Start Time Stop Time Status Last Admin Dose Admin Zinc Sulfate 220 mg DAILY PO 01/03/25 10:00 01/04/25 09:06 220 MG Ascorbic Acid 500 mg BID PO 01/02/25 22:00 01/05/25 21:45 500 MG Acetaminophen 650 mg Q6HP PRN PO 01/02/25 22:00 Diagnostic Test (Pha) 1 strip ACHS 01/02/25 22:00 01/06/25 06:06 1 STRIP Insulin Human Regular ACHS SC 01/02/25 22:00 01/06/25 06:06 2 UNITS Dextrose 50 ml UD PRN IV 01/02/25 22:00 Heparin Sodium (Porcine) 5,000 units Q12HR SC 01/03/25 10:00 01/05/25 21:46 5,000 UNITS Morphine Sulfate 2 mg Q6HPRN PRN IV 01/03/25 02:15 Cancel Mupirocin 1 applic BID EACHNOSTRI 01/03/25 22:00 01/08/25 21:59 01/05/25 21:48 1 APPLIC Morphine Sulfate 2 mg Q6HPRN PRN IV 01/04/25 09:30 01/06/25 00:23 2 MG Cefepime HCl 50 ml @ 12.5 mls/hr DAILY IV 01/06/25 10:00 Acetaminophen/ Hydrocodone Bitart 1 tab Q6HPRN PRN PO 01/05/25 21:15 01/06/25 06:07 1 TAB Examination: GENERAL:Normal, CVS:Normal, SKIN:Abnormal laboratory and microbiology Laboratory Tests 01/06/25 04:35 01/05/25 06:14 Test 01/06/25 04:35 Range/Units Serum Glucose 128 H 74-106 mg/dL Microbiology Date/Time Source Procedure Growth Status 01/03/25 15:24 Foot Left Gram Stain - Final Resulted 01/03/25 15:24 Foot Left Anaerobic Culture - Preliminary Resulted 01/03/25 15:24 Aerobic Culture - Preliminary Enterobacter cloacae Proteus mirabilis Enterococcus faecalis Resulted 01/02/25 16:40 Blood Blood Culture - Preliminary NO GROWTH AFTER 72 HOURS OF INCUBATION. Resulted Problem List/Assessment/Plan Problem List/Assessment/Plan # ESRD on hemodialysis # Hypokalemia resolved # Diabetic ulcer of the left foot # Sepsis due to above # Peripheral artery disease # Nicotine dependence # Methamphetamine abuse disorder Plan: - Hemodialysis tentative today - S/P I&D of left foot day 2 - Continue IV antibiotics and other management as per primary - Counseled patient regarding quit smoking, drug abuse and rehabilitation - Strict I&O - Monitor BMP Plan discussed with: Patient My Orders My Orders Orders - LESLIE MAS MD Procedure Category Date Status Time Hemodialysis Orders ORDERS 01/06/25 Transmitted 07:00 Dialysis Nursing PAULO 01/06/25 In Process Message 07:00 Document Fluid Input PAULO 01/06/25 In Process And Outpu 07:00 Dietary Evaluation Review Comments: Nutrition Recommendation: 1) Advance to [facility] 75gm + renal standard diet 2) Nephro-tila 1 tab daily 3) Kristopher 1 pk & Pro-stat 1 pk daily 4) Monitor NPO status, lab values, weight trend, and I/O Expected Outcomes/Goals: To meet >75% estimated needs Wound to improve Fu 2-3 days Total Time (mins): 25 LESLIE MAS MD Jan 06, 2025 10:56
--- NOTE | 2025-01-06 13:32 | DVHPNRES ---
Progress Note Date Seen: Jan 06, 2025 Resident Creating Document: TRACI DOMINIQUE RESIDENT Medical Necessity Reason Pt with a Central, PICC or Fol: No Subjective Review of Systems Patient is 54-year-old male with past medical history of diabetes mellitus, ESRD on dialysis (M, W, F), GERD, liver abscess, presented to the ER for worsening left foot ulcer. Patient went for appointment with Dr. Thornton, where he was informed that has foot ulcers infected and was sent to the ER. Patient complained of worsening pain in foot, which he 1st noticed 1 month ago. He was hospitalized for 1 month at the [facility] for a liver abscess, discharged with no antibiotics nor home medication. He also complained of diarrhea since last 2 weeks, reports loose, watery, runny diarrhea, 6-10 times daily, no blood seen. Patient's lab workup revealed leukocytosis with WBC 18.2, anemia with a hemoglobin 8.2, hypokalemia potassium 2.5, increased anion gap 19, serum creatinine 4.05, GFR 17, BUN 33, lactic acidosis with lactic acid 2.4, 30, ferritin 20.2, TIBC 159, UDS positive for amphetamine. Patient tested negative for influenza type a and B, COVID-19, hepatitis-B surface antigen, hepatitis-C antibody. CT left foot revealed- Findings as above suggestive of infectious / inflammatory process involving the plantar aspect of the foot. No definite osseous erosion, though MRI would be more sensitive for osteomyelitis as clinically indicated. Necrotizing fasciitis cannot be excluded on the basis of CT. Ultrasound of the liver revealed- Prior cholecystectomy with stent seen in the common bile duct. Gas is seen in the left hepatic lobe, which may be referable to pneumobilia, though portal venous gas cannot be excluded. Arterial Doppler of the bilateral lower extremity revealed-Greater than 75% stenosis of the right dorsalis pedis based on peak systolic velocity criteria. Nonvisualization of the right posterior tibial artery and left dorsalis pedis. Bilateral monophasic arterial waveforms are suggestive of underlying peripheral arterial disease. Previous hospitalization: November 2024 for liver abscess in [facility] for 1 month PMHx: Diabetes mellitus, ESRD on HD sessions, GERD, liver abscess s/p op PSHx: Toe amputation, cholecystectomy, biliary stent Social history: Reports smoking half pack per day since the age of 14 years, alcohol use 2 units daily, reports using methamphetamine and marijuana. Lives in home alone. Full code. Next to kin cousin Alize Villegas Home medication: Reportedly no home medication reconciled after discharge from [facility] Allergic history: No known allergy history INTERVAL EVENTS 01/06/2025 PATIENT MENTIONED NO COMPLAINT PATIENT IS REFUSING RETIREMENT FACILITY PLACEMENT, MENTIONING USED TO TAKE DRUGS TWO MONTHS AGO UDS POSITIVE FOR AMPHETAMINES Objective vital signs Vital Sign Date Time Temp Pulse Resp B/P (MAP) Pulse Ox O2 Delivery O2 Flow Rate FiO2 01/06/25 13:11 98.0 76 20 129/71 (90) 100 98.0 01/05/25 20:10 Room Air* 0 21 Total Intake and Output 01/05/25 01/05/25 01/06/25 15:00 23:00 07:00 Intake Total 100 ml 200 ml Output Total 250 ml Balance 100 ml -50 ml medications Current Medications Medications Dose Ordered Sig/Vargas Route Start Time Stop Time Status Last Admin Dose Admin Zinc Sulfate 220 mg DAILY PO 01/03/25 10:00 01/06/25 10:52 220 MG Ascorbic Acid 500 mg BID PO 01/02/25 22:00 01/06/25 10:55 500 MG Acetaminophen 650 mg Q6HP PRN PO 01/02/25 22:00 Diagnostic Test (Pha) 1 strip ACHS 01/02/25 22:00 01/06/25 11:30 1 STRIP Insulin Human Regular ACHS SC 01/02/25 22:00 01/06/25 11:30 2 UNITS Dextrose 50 ml UD PRN IV 01/02/25 22:00 Heparin Sodium (Porcine) 5,000 units Q12HR SC 01/03/25 10:00 01/06/25 11:13 5,000 UNITS Morphine Sulfate 2 mg Q6HPRN PRN IV 01/03/25 02:15 Cancel Mupirocin 1 applic BID EACHNOSTRI 01/03/25 22:00 01/08/25 21:59 01/06/25 10:00 1 APPLIC Morphine Sulfate 2 mg Q6HPRN PRN IV 01/04/25 09:30 01/06/25 00:23 2 MG Cefepime HCl 50 ml @ 12.5 mls/hr DAILY IV 01/06/25 10:00 01/06/25 10:55 12.5 MLS/HR Acetaminophen/ Hydrocodone Bitart 1 tab Q6HPRN PRN PO 01/05/25 21:15 01/06/25 10:54 1 TAB Examination EXAMINATION GENERAL APPEARANCE: ALERT, ORIENTED X3, COOPERATIVE, NO ACUTE DISTRESS HEENT: EOMI RESPIRATORY: CLEAR TO AUSCULTATION, NORMAL AIR MOVEMENT CARDIOVASCULAR: REGULAR RATE, NORMAL S1, NORMAL S2 ABDOMINAL: NORMAL BOWEL SOUNDS EXTREMITIES: BILATERAL FEET COVERED WITH DRESSING SKIN: NO RASHES, NO BREAKDOWN NEURO: NORMAL SPEECH AND TONE laboratory and microbiology Laboratory Tests 01/06/25 04:35 01/05/25 06:14 Test 01/06/25 04:35 Range/Units Serum Glucose 128 H 74-106 mg/dL Microbiology Date/Time Source Procedure Growth Status 01/03/25 15:24 Foot Left Gram Stain - Final Resulted 01/03/25 15:24 Foot Left Anaerobic Culture - Preliminary Resulted 01/03/25 15:24 Aerobic Culture - Preliminary Enterobacter cloacae Proteus mirabilis Enterococcus faecalis Resulted 01/02/25 16:40 Blood Blood Culture - Preliminary NO GROWTH AFTER 72 HOURS OF INCUBATION. Resulted Labs and/or images reviewed: Labs reviewed by me, Image(s) reviewed by me Problem List/Assessment/Plan Problem List/Assessment/Plan Assessment and plan # Sepsis due to left foot osteomyelitis # Left foot osteomyelitis # Left foot abscess # Left foot cellulitis # Left foot diabetic ulcer # Right foot diabetic ulcer # PAD -Wound culture, Blood culture, MRSA screening ordered -Doppler study of the lower extremity revealed peripheral arterial disease.Greater than 75% stenosis of the right dorsalis pedis.Nonvisualization of the right posterior tibial artery and left dorsalis pedis. Bilateral monophasic arterial waveforms are suggestive of underlying peripheral arterial disease. -CT left foot shows soft tissue gas, stranding, and swelling about the plantar aspect of the forefoot. -IV vancomycin, Zosyn, synchronized with HD sessions -Wound care consulted -blood culture no growth so far, Pending wound culture -S/P Podiatry consulted-status post incision and drainage Status post I&D to bone and left foot delayed closure Awaiting SNF placement Culture shows positive for Enterococcus, Proteus and Enterococcus factor IV vancomycin plus IV cefepime #History of liver abscess #Acute gastroenteritis #Transaminitis with elevated ALP -Labs showed neutrophilic leukocytosis -Ultrasound liver shows stent in the common bile duct. Gas is seen in the left hepatic lobe, which may be referable to pneumobilia -monitor CMP # hypokalemia-replenished -monitor BMP # Normocytic normochromic anemia, likely due to anemia of chronic disease Low iron, TIBC and% saturation. Normal vitamin B12 and increased retic count # ESRD on hemodialysis # Hypervolemic Hyponatremia IV fluid maintenance, holding off bolus to avoid fluid overload in context of CKD with dialysis -status post nephrology consult -monitor CMP # Diabetes mellitus type 2 with Hyperglycemia -Sliding scale insulin A1c 5.4 -Monitor blood glucose -Diabetes education -Advanced to Diabetic diet when appropriate # Polysubstance abuse -Toxicology screen -positive for amphetamine -counseled patient about the effect of substance abuse on health Goals of care, Code status :full code ; discussed with >15 minutes PUD prophylaxis: Pantoprazole DVT prophylaxis: Heparin Awaiting SNF placement PICC LINE Consult Started on vancomycin, continue cefepime Plan discussed with Dr. Shaffer , nursing staff, Total time spent on patient evaluation, chart review, assessment and plan, discussion discussion >35 minutes Plan discussed with: Patient, Other My Orders My Orders Orders - TRACI DOMINIQUE RESIDENT Procedure Category Date Status Time Cefepime 1gm/50ml PHA 01/06/25 In Process (Maxipime 1gm/50ml) 10:00 Magnesium Oxide PHA 01/06/25 Transmitted Tablet (Mag-Ox Tablet) 13:30 Dietary Evaluation Review Comments: Nutrition Recommendation: 1) Advance to [facility] 75gm + renal standard diet 2) Nephro-tila 1 tab daily 3) Kristopher 1 pk & Pro-stat 1 pk daily 4) Monitor NPO status, lab values, weight trend, and I/O Expected Outcomes/Goals: To meet >75% estimated needs Wound to improve Fu 2-3 days Date of Service: Jan 06, 2025 Billing Provider: JULIOCESAR SHAFFER DO Common Visit Codes: [id number] INP/OBS CARE(HIGH) TRACI DOMINIQUE RESIDENT Jan 06, 2025 13:32 JULIOCESAR SHAFFER DO Jan 08, 2025 23:55
[2025-01-06] MEDS ORDERED: VANCOMYCIN PER PHARMACY 0 MG IV SCH (13:45)
[2025-01-06] MEDS: MAGNESIUM OXIDE 400 MG TAB PO ONE (15:33)
[2025-01-06] MEDS: VANCOMYCIN 750MG KIT 100 ML IV ONE (15:33)
[2025-01-06] MEDS: SODIUM CHL 0.9% 1000 ML BAG XX ONE (17:55)
[2025-01-06] MEDS: ALBUMIN 25% 100 ML IV PRN (18:12)
[2025-01-06] MEDS: HYDROcodone-ACET 7.5/325MG TAB PO PRN (18:17)
[2025-01-07 01:00] VITALS: BP 121/77; PULSE 80; RESP 18; TEMP 98.1; O2SAT 100
[2025-01-07 05:00] VITALS: BP 113/68; PULSE 73; RESP 18; TEMP 97.8; O2SAT 100
[2025-01-07 07:16] LABS: Anion Gap 12 (5-15); Carbon Dioxide 23 mmol/L (20-31); Chloride 102 mmol/L (98-107); Potassium 4.2 mmol/L (3.5-5.1); Sodium 137 mmol/L (136-145)
[2025-01-07 07:17] LABS: Calcium 7.8 mg/dL (8.7-10.4)
[2025-01-07 07:22] LABS: BUN/Creatinine Ratio 4.4 (10.0-20.0); Blood Urea Nitrogen 13 mg/dL (9-23); Magnesium 1.9 mg/dL (1.6-2.6)
[2025-01-07 07:24] LABS: Glucose 273 mg/dL (74-106)
[2025-01-07 08:00] VITALS: PULSE 79; RESP 18
[2025-01-07] MEDS: LIDOCAINE 1% (LOCAL ANESTH.) PF 5ml SDV ID ONE (10:45)
--- NOTE | 2025-01-07 11:31 | DVHPNRES ---
Progress Note Date Seen: Jan 07, 2025 Resident Creating Document: TAE AWAD RESIDENT Medical Necessity Reason Pt with a Central, PICC or Fol: No Subjective Review of Systems Patient is 54-year-old male with past medical history of diabetes mellitus, ESRD on dialysis (M, W, F), GERD, liver abscess, presented to the ER for worsening left foot ulcer. Patient went for appointment with Dr. Thornton, where he was informed that has foot ulcers infected and was sent to the ER. Patient complained of worsening pain in foot, which he 1st noticed 1 month ago. He was hospitalized for 1 month at the [facility] for a liver abscess, discharged with no antibiotics nor home medication. He also complained of diarrhea since last 2 weeks, reports loose, watery, runny diarrhea, 6-10 times daily, no blood seen. Patient's lab workup revealed leukocytosis with WBC 18.2, anemia with a hemoglobin 8.2, hypokalemia potassium 2.5, increased anion gap 19, serum creatinine 4.05, GFR 17, BUN 33, lactic acidosis with lactic acid 2.4, 30, ferritin 20.2, TIBC 159, UDS positive for amphetamine. Patient tested negative for influenza type a and B, COVID-19, hepatitis-B surface antigen, hepatitis-C antibody. CT left foot revealed- Findings as above suggestive of infectious / inflammatory process involving the plantar aspect of the foot. No definite osseous erosion, though MRI would be more sensitive for osteomyelitis as clinically indicated. Necrotizing fasciitis cannot be excluded on the basis of CT. Ultrasound of the liver revealed- Prior cholecystectomy with stent seen in the common bile duct. Gas is seen in the left hepatic lobe, which may be referable to pneumobilia, though portal venous gas cannot be excluded. Arterial Doppler of the bilateral lower extremity revealed-Greater than 75% stenosis of the right dorsalis pedis based on peak systolic velocity criteria. Nonvisualization of the right posterior tibial artery and left dorsalis pedis. Bilateral monophasic arterial waveforms are suggestive of underlying peripheral arterial disease. Previous hospitalization: November 2024 for liver abscess in [facility] for 1 month PMHx: Diabetes mellitus, ESRD on HD sessions, GERD, liver abscess s/p op PSHx: Toe amputation, cholecystectomy, biliary stent Social history: Reports smoking half pack per day since the age of 14 years, alcohol use 2 units daily, reports using methamphetamine and marijuana. Lives in home alone. Full code. Next to kin cousin Alize Villegas Home medication: Reportedly no home medication reconciled after discharge from [facility] Allergic history: No known allergy history Patient was seen today at bedside. Labs and chart reviewed. Patient had hemodialysis yesterday. Patient on IV antibiotic cefepime and vancomycin. Wound VAC on left foot wound. Pending SNF placement. Objective vital signs Vital Sign Date Time Temp Pulse Resp B/P (MAP) Pulse Ox O2 Delivery O2 Flow Rate FiO2 01/07/25 05:00 97.8 73 18 113/68 (83) 100 97.8 01/06/25 20:15 Room Air* 0 21 Total Intake and Output 01/06/25 01/06/25 01/07/25 15:00 23:00 07:00 Intake Total 50 ml 210 ml 240 ml Output Total 400 ml 100 ml Balance 50 ml -190 ml 140 ml medications Current Medications Medications Dose Ordered Sig/Vargas Route Start Time Stop Time Status Last Admin Dose Admin Zinc Sulfate 220 mg DAILY PO 01/03/25 10:00 01/06/25 10:52 220 MG Ascorbic Acid 500 mg BID PO 01/02/25 22:00 01/06/25 21:33 500 MG Acetaminophen 650 mg Q6HP PRN PO 01/02/25 22:00 Diagnostic Test (Pha) 1 strip ACHS 01/02/25 22:00 01/07/25 06:30 1 STRIP Insulin Human Regular ACHS SC 01/02/25 22:00 01/07/25 06:30 4 UNITS Dextrose 50 ml UD PRN IV 01/02/25 22:00 Heparin Sodium (Porcine) 5,000 units Q12HR SC 01/03/25 10:00 01/06/25 21:34 5,000 UNITS Morphine Sulfate 2 mg Q6HPRN PRN IV 01/03/25 02:15 Cancel Mupirocin 1 applic BID EACHNOSTRI 01/03/25 22:00 01/08/25 21:59 01/06/25 21:33 1 APPLIC Morphine Sulfate 2 mg Q6HPRN PRN IV 01/04/25 09:30 Hold 01/06/25 00:23 2 MG Cefepime HCl 50 ml @ 12.5 mls/hr DAILY IV 01/06/25 10:00 01/06/25 10:55 12.5 MLS/HR Vancomycin HCl 0 ml @ 0 mls/hr UD IV 01/06/25 13:45 Acetaminophen/ Hydrocodone Bitart 1 tab Q6HP PRN PO 01/06/25 18:00 01/07/25 06:29 1 TAB Albumin Human 100 ml @ 100 mls/hr Q15MP PRN IV 01/06/25 18:00 01/08/25 10:59 01/06/25 18:12 100 MLS/HR Sodium Chloride 10 ml QSHIFT@10,22 IV 01/07/25 22:00 Examination General examination- awake, alert, conversant HEENT- PEERLA, no acute nasal discharge Cardiovascular- S1-S2 audible, rate and rhythm regular, no murmur Respiratory- CTAB, no wheeze or rhonchi Gastrointestinal-nontender, bowel sound+. Nondistended Musculoskeletal-no acute joint swelling or tenderness or redness Lower extremity- ADP bilaterally not palpable, wound of the left foot with gangrenous changes, wound on the right foot heel Neurological- cranial nerves intact, no acute dysarthria or dysphagia Psychiatry- denies depression or SI or HI Skin- no acute rash or purpura laboratory and microbiology Laboratory Tests 01/07/25 06:47 01/05/25 06:14 Test 01/07/25 06:47 Range/Units Serum Glucose 273 #H 74-106 mg/dL Microbiology Date/Time Source Procedure Growth Status 01/03/25 15:24 Foot Left Gram Stain - Final Resulted 01/03/25 15:24 Foot Left Anaerobic Culture - Preliminary Resulted 01/03/25 15:24 Aerobic Culture - Final Enterobacter cloacae Proteus mirabilis Enterococcus faecalis Resulted 01/02/25 16:40 Blood Blood Culture - Preliminary NO GROWTH AFTER 72 HOURS OF INCUBATION. Resulted Problem List/Assessment/Plan Problem List/Assessment/Plan Assessment and plan # Sepsis due to Bilateral foot ulcers with cellulitis and probable osteomyelitis #Bilateral foot ulcers with cellulitis and Osteomyelitis # PAD #Diabetic foot ulcer #Lactic acidosis # neutrophilic leukocytosis -Wound culture, Blood culture, MRSA screening ordered -Doppler study of the lower extremity revealed peripheral arterial disease.Greater than 75% stenosis of the right dorsalis pedis.Nonvisualization of the right posterior tibial artery and left dorsalis pedis. Bilateral monophasic arterial waveforms are suggestive of underlying peripheral arterial disease. -CT left foot shows soft tissue gas, stranding, and swelling about the plantar aspect of the forefoot. -wound culture revealed Enterococcus faecalis, Enterobacter Colace, Proteus mirabilis -continue IV antibiotic cefepime and vancomycin as prescribed. -pending SNF placement --wound VAC in the left foot #History of liver abscess #Acute gastroenteritis #Transaminitis with elevated ALP -Labs showed neutrophilic leukocytosis -Ultrasound liver shows stent in the common bile duct. Gas is seen in the left hepatic lobe, which may be referable to pneumobilia -continue current antibiotic -monitor CMP # hypokalemia-replenished -monitor BMP # acute gastroenteritis -continue current management -- #Normocytic normochromic anemia, likely due to anemia of chronic disease Low iron, TIBC and% saturation. Normal vitamin B12 and increased retic count -continue ferrous sulfate as per #ESRD on hemodialysis #Hypovolemic Hyponatremia -nephrology on board -continue hemodialysis as per Nephrology recommendation -monitor CMP #Diabetes mellitus type 2 with Hyperglycemia -Sliding scale insulin A1c 5.4 -Monitor blood glucose -Diabetes education -diabetic diet #Polysubstance abuse -Toxicology screen -positive for amphetamine -counseled patient about the effect of substance abuse on health Goals of care, Code status ; discussed with >15 minutes PUD prophylaxis: Pantoprazole DVT prophylaxis: Heparin Plan discussed with Dr. Sheppard , nursing staff, Total time spent on patient evaluation, chart review, assessment and plan, discussion discussion >35 minutes Plan discussed with: Patient, Other (RN) My Orders My Orders Orders - TAE AWAD RESIDENT Procedure Category Date Status Time Nursing Protocol Picc PAULO 01/07/25 In Process 10:31 Change Dressing Prn PAULO 01/07/25 In Process 10:31 Sodium Chloride Lock PHA 01/07/25 In Process (Saline Lock Ns) 22:00 Do Not Use Picc For 01/07/25 In Process Blood Cult 10:31 May Draw Blood From PAULO 01/07/25 In Process Picc 10:31 Ok To Use Picc PAULO 01/07/25 In Process 10:31 Change Picc Dressing PAULO 01/07/25 In Process Q7 Days 10:31 Dietary Evaluation Review Comments: Nutrition Recommendation: 1) [facility] + renal standard diet 2) Nephro-tila 1 tab daily 3) Kristopher 1 pk & Pro-stat 1 pk daily 4) Monitor NPO status, lab values, weight trend, and I/O Expected Outcomes/Goals: To meet >75% estimated needs Wound to improve Fu 2-3 days Date of Service: Jan 07, 2025 Billing Provider: JARROD SHEPPARD MD Common Visit Codes: [id number] INP/OBS CARE(HIGH) TAE AWAD RESIDENT Jan 07, 2025 11:31 JARROD SHEPPARD MD Jan 11, 2025 19:04
--- NOTE | 2025-01-07 11:55 | DVHPN2 ---
Progress Note Date Seen: Jan 07, 2025 Medical Necessity Reason Pt with a Central, PICC or Fol: No Objective vital signs Vital Sign Date Time Temp Pulse Resp B/P (MAP) Pulse Ox O2 Delivery O2 Flow Rate FiO2 01/07/25 05:00 97.8 73 18 113/68 (83) 100 97.8 01/06/25 20:15 Room Air* 0 21 Total Intake and Output 01/06/25 01/06/25 01/07/25 15:00 23:00 07:00 Intake Total 50 ml 210 ml 240 ml Output Total 400 ml 100 ml Balance 50 ml -190 ml 140 ml medications Current Medications Medications Dose Ordered Sig/Vargas Route Start Time Stop Time Status Last Admin Dose Admin Zinc Sulfate 220 mg DAILY PO 01/03/25 10:00 01/07/25 11:41 220 MG Ascorbic Acid 500 mg BID PO 01/02/25 22:00 01/07/25 11:41 500 MG Acetaminophen 650 mg Q6HP PRN PO 01/02/25 22:00 Diagnostic Test (Pha) 1 strip ACHS 01/02/25 22:00 01/07/25 06:30 1 STRIP Insulin Human Regular ACHS SC 01/02/25 22:00 01/07/25 06:30 4 UNITS Dextrose 50 ml UD PRN IV 01/02/25 22:00 Heparin Sodium (Porcine) 5,000 units Q12HR SC 01/03/25 10:00 01/07/25 11:45 5,000 UNITS Morphine Sulfate 2 mg Q6HPRN PRN IV 01/03/25 02:15 Cancel Mupirocin 1 applic BID EACHNOSTRI 01/03/25 22:00 01/08/25 21:59 01/07/25 10:00 1 APPLIC Morphine Sulfate 2 mg Q6HPRN PRN IV 01/04/25 09:30 Hold 01/06/25 00:23 2 MG Cefepime HCl 50 ml @ 12.5 mls/hr DAILY IV 01/06/25 10:00 01/07/25 11:41 12.5 MLS/HR Vancomycin HCl 0 ml @ 0 mls/hr UD IV 01/06/25 13:45 Acetaminophen/ Hydrocodone Bitart 1 tab Q6HP PRN PO 01/06/25 18:00 01/07/25 06:29 1 TAB Albumin Human 100 ml @ 100 mls/hr Q15MP PRN IV 01/06/25 18:00 01/08/25 10:59 01/06/25 18:12 100 MLS/HR Sodium Chloride 10 ml QSHIFT@10,22 IV 01/07/25 22:00 Ferrous Sulfate 325 mg DAILY PO 01/08/25 10:00 Examination: GENERAL:Normal, CVS:Normal laboratory and microbiology Laboratory Tests 01/07/25 06:47 01/05/25 06:14 Test 01/07/25 06:47 Range/Units Serum Glucose 273 #H 74-106 mg/dL Microbiology Date/Time Source Procedure Growth Status 01/03/25 15:24 Foot Left Gram Stain - Final Resulted 01/03/25 15:24 Foot Left Anaerobic Culture - Preliminary Resulted 01/03/25 15:24 Aerobic Culture - Final Enterobacter cloacae Proteus mirabilis Enterococcus faecalis Resulted 01/02/25 16:40 Blood Blood Culture - Preliminary NO GROWTH AFTER 72 HOURS OF INCUBATION. Resulted Problem List/Assessment/Plan Problem List/Assessment/Plan # ESRD on hemodialysis # Hypokalemia resolved # Diabetic ulcer of the left foot # Sepsis due to above # Peripheral artery disease # Nicotine dependence # Methamphetamine abuse disorder Plan: - Hemodialysis tentative wednesday or wednesday - S/P I&D of left foot - Continue IV antibiotics and other management as per primary - Counseled patient regarding quit smoking, drug abuse and rehabilitation - Strict I&O - Monitor BMP Plan discussed with: Patient My Orders My Orders Orders - LESLIE MAS MD Procedure Category Date Status Time Albumin 25% (Albutein) PHA 01/06/25 In Process 18:00 Dietary Evaluation Review Comments: Nutrition Recommendation: 1) Advance to [facility] 75gm + renal standard diet 2) Nephro-tila 1 tab daily 3) Kristopher 1 pk & Pro-stat 1 pk daily 4) Monitor NPO status, lab values, weight trend, and I/O Expected Outcomes/Goals: To meet >75% estimated needs Wound to improve Fu 2-3 days LESLIE MAS MD Jan 07, 2025 11:55
[2025-01-07] MEDS: VANCOMYCIN 500mg/100mL 100 ML IV ONE (12:30)
[2025-01-07 13:08] VITALS: BP 147/75; PULSE 75; RESP 20; TEMP 97.6; O2SAT 100
[2025-01-07 13:12] LABS: Mean Corpuscular Hemoglobin 32.6 pg (28.0-32.0)
[2025-01-07 13:14] LABS: Hematocrit 22.0 % (41.0-53.0); Hemoglobin 7.4 g/dL (13.5-17.5); Mean Corpuscular Volume 96.4 fL (80.0-100.0); Nucleated Red Blood Cells % 0.0 %
[2025-01-07 17:27] VITALS: BP 113/71; PULSE 81; RESP 20; TEMP 98.1; O2SAT 97
[2025-01-07 20:00] VITALS: PULSE 81; PULSE 86; RESP 18
[2025-01-07] MEDS: SODIUM CHLOR 0.9% PF (SALINE LOCK) 10ML VIAL/SYR IV SCH (23:34)
[2025-01-08] VITALS (7 sets, daily range): BP systolic 128–145; BP diastolic 45–83; PULSE 76–86; RESP 16–19; TEMP 97.6–98.2; O2SAT 97–100
[2025-01-08 07:09] LABS: Hematocrit 22.6 % (41.0-53.0); Hemoglobin 7.5 g/dL (13.5-17.5); Mean Corpuscular Hemoglobin 32.6 pg (28.0-32.0); Mean Corpuscular Volume 98.7 fL (80.0-100.0); Nucleated Red Blood Cells % 0.0 %
[2025-01-08 07:14] LABS: Chloride 103 mmol/L (98-107); Potassium 4.5 mmol/L (3.5-5.1); Sodium 136 mmol/L (136-145)
[2025-01-08 07:15] LABS: Anion Gap 10 (5-15); Carbon Dioxide 23 mmol/L (20-31)
[2025-01-08 07:17] LABS: Calcium 8.0 mg/dL (8.7-10.4)
[2025-01-08 07:20] LABS: BUN/Creatinine Ratio 7.1 (10.0-20.0)
[2025-01-08 07:21] LABS: Blood Urea Nitrogen 23 mg/dL (9-23); Glucose 167 mg/dL (74-106); Magnesium 1.8 mg/dL (1.6-2.6)
[2025-01-08] MEDS: FERROUS SULFATE 325mg EC TAB PO SCH (10:09)
--- NOTE | 2025-01-08 11:37 | DVHPN2 ---
Progress Note Date Seen: Jan 08, 2025 Medical Necessity Reason Pt with a Central, PICC or Fol: No Subjective Patient reports: No new complaints Other Systems: Patient seen and examined by myself today in follow-up Objective vital signs Vital Sign Date Time Temp Pulse Resp B/P (MAP) Pulse Ox O2 Delivery O2 Flow Rate FiO2 01/08/25 09:00 97.8 79 16 144/80 (101) 100 97.8 01/07/25 20:00 Room Air* 0 21 Total Intake and Output 01/07/25 01/07/25 01/08/25 15:00 23:00 07:00 Intake Total 450 ml 360 ml Output Total 200 ml 380 ml Balance 250 ml -20 ml medications Current Medications Medications Dose Ordered Sig/Vargas Route Start Time Stop Time Status Last Admin Dose Admin Zinc Sulfate 220 mg DAILY PO 01/03/25 10:00 01/08/25 10:08 220 MG Ascorbic Acid 500 mg BID PO 01/02/25 22:00 01/08/25 10:09 500 MG Acetaminophen 650 mg Q6HP PRN PO 01/02/25 22:00 Diagnostic Test (Pha) 1 strip ACHS 01/02/25 22:00 01/08/25 06:26 1 STRIP Insulin Human Regular ACHS SC 01/02/25 22:00 01/08/25 06:32 3 UNITS Dextrose 50 ml UD PRN IV 01/02/25 22:00 Heparin Sodium (Porcine) 5,000 units Q12HR SC 01/03/25 10:00 01/07/25 23:40 5,000 UNITS Morphine Sulfate 2 mg Q6HPRN PRN IV 01/03/25 02:15 Cancel Mupirocin 1 applic BID EACHNOSTRI 01/03/25 22:00 01/08/25 21:59 01/08/25 10:09 1 APPLIC Morphine Sulfate 2 mg Q6HPRN PRN IV 01/04/25 09:30 Hold 01/06/25 00:23 2 MG Cefepime HCl 50 ml @ 12.5 mls/hr DAILY IV 01/06/25 10:00 01/08/25 10:08 12.5 MLS/HR Vancomycin HCl 0 ml @ 0 mls/hr UD IV 01/06/25 13:45 Acetaminophen/ Hydrocodone Bitart 1 tab Q6HP PRN PO 01/06/25 18:00 106/25 10:08 1 TAB Sodium Chloride 10 ml QSHIFT@10,22 IV 01/07/25 22:00 01/08/25 10:09 10 ML Ferrous Sulfate 325 mg DAILY PO 01/08/25 10:00 01/08/25 10:09 325 MG Examination: LUNGS:Normal, CVS:Normal, MSK:Normal laboratory and microbiology Laboratory Tests 01/08/25 06:31 Test 01/08/25 06:31 Range/Units Serum Glucose 167 #H 74-106 mg/dL Microbiology Date/Time Source Procedure Growth Status 01/03/25 15:24 Foot Left Gram Stain - Final Resulted 01/03/25 15:24 Foot Left Anaerobic Culture - Preliminary Resulted 01/03/25 15:24 Aerobic Culture - Final Enterobacter cloacae Proteus mirabilis Enterococcus faecalis Resulted 01/02/25 16:40 Blood Blood Culture - Final NO GROWTH AFTER 5 DAYS OF INCUBATION. Complete Problem List/Assessment/Plan Problem List/Assessment/Plan ESRD on hemodialysis Hypokalemia resolved Hypertension Hyperglycemia Diabetic ulcer of the left foot Peripheral artery disease Nicotine dependence Methamphetamine abuse disorder Anemia of chronic kidney disease Recommendations Hemodialysis tomorrow Epogen 23276 subQ 3 times weekly Strict I&Os Renal diet IV antibiotics Podiatry consult Insulin sliding scale We will continue to follow Total care time 30 minutes Plan discussed with: Patient My Orders My Orders Orders - ADA MCCONNELL MD Procedure Category Date Status Time Hemodialysis Orders ORDERS 01/09/25 Transmitted 07:00 Dialysis Nursing PAULO 01/09/25 In Process Message 07:00 Heparin Sodium PHA 01/09/25 In Process (Porcine) 07:00 Heparin Sodium PHA 01/09/25 In Process (Porcine) 07:00 Sodium Chloride 0.9% PHA 01/09/25 In Process 07:00 Document Fluid Input PAULO 01/09/25 In Process And Outpu 07:00 Epoetin Kuldeep-Epbx PHA 01/09/25 In Process (Retacrit) 21:00 Dietary Evaluation Review Comments: Nutrition Recommendation: 1) Advance to [facility] 75gm + renal standard diet 2) Nephro-tila 1 tab daily 3) Kristopher 1 pk & Pro-stat 1 pk daily 4) Monitor NPO status, lab values, weight trend, and I/O Expected Outcomes/Goals: To meet >75% estimated needs Wound to improve Fu 2-3 days ADA MCCONNELL MD Jan 08, 2025 11:37
--- NOTE | 2025-01-08 12:39 | DVHPNRES ---
Progress Note Date Seen: Jan 08, 2025 Resident Creating Document: TAE AWAD RESIDENT Medical Necessity Reason Pt with a Central, PICC or Fol: No Subjective Review of Systems Patient is 54-year-old male with past medical history of diabetes mellitus, ESRD on dialysis (M, W, F), GERD, liver abscess, presented to the ER for worsening left foot ulcer. Patient went for appointment with Dr. Thornton, where he was informed that has foot ulcers infected and was sent to the ER. Patient complained of worsening pain in foot, which he 1st noticed 1 month ago. He was hospitalized for 1 month at the [facility] for a liver abscess, discharged with no antibiotics nor home medication. He also complained of diarrhea since last 2 weeks, reports loose, watery, runny diarrhea, 6-10 times daily, no blood seen. Patient's lab workup revealed leukocytosis with WBC 18.2, anemia with a hemoglobin 8.2, hypokalemia potassium 2.5, increased anion gap 19, serum creatinine 4.05, GFR 17, BUN 33, lactic acidosis with lactic acid 2.4, 30, ferritin 20.2, TIBC 159, UDS positive for amphetamine. Patient tested negative for influenza type a and B, COVID-19, hepatitis-B surface antigen, hepatitis-C antibody. CT left foot revealed- Findings as above suggestive of infectious / inflammatory process involving the plantar aspect of the foot. No definite osseous erosion, though MRI would be more sensitive for osteomyelitis as clinically indicated. Necrotizing fasciitis cannot be excluded on the basis of CT. Ultrasound of the liver revealed- Prior cholecystectomy with stent seen in the common bile duct. Gas is seen in the left hepatic lobe, which may be referable to pneumobilia, though portal venous gas cannot be excluded. Arterial Doppler of the bilateral lower extremity revealed-Greater than 75% stenosis of the right dorsalis pedis based on peak systolic velocity criteria. Nonvisualization of the right posterior tibial artery and left dorsalis pedis. Bilateral monophasic arterial waveforms are suggestive of underlying peripheral arterial disease. Previous hospitalization: November 2024 for liver abscess in [facility] for 1 month PMHx: Diabetes mellitus, ESRD on HD sessions, GERD, liver abscess s/p op PSHx: Toe amputation, cholecystectomy, biliary stent Social history: Reports smoking half pack per day since the age of 14 years, alcohol use 2 units daily, reports using methamphetamine and marijuana. Lives in home alone. Full code. Next to kin cousin Alize Villegas Home medication: Reportedly no home medication reconciled after discharge from [facility] Allergic history: No known allergy history Patient was seen today at bedside. Labs and chart reviewed. Patient was seen by Nephrology, recommendation reviewed and appreciated. As per nephro hemo dialysis tomorrow. Patient refusing SNF for IV antibiotic. Patient has a history of substance abuse. Alternative plan is to give patient oral antibiotic and patient was counseled about the effectiveness of oral antibiotic instead of IV antibiotic. Patient verbalized understanding the outcome of p.o. antibiotic instead of oral antibiotic. SEVERO Stout was present at the time of conversation. Objective vital signs Vital Sign Date Time Temp Pulse Resp B/P (MAP) Pulse Ox O2 Delivery O2 Flow Rate FiO2 01/08/25 09:00 97.8 79 16 144/80 (101) 100 97.8 01/08/25 08:00 Room Air* 0 21 Total Intake and Output 01/07/25 01/07/25 01/08/25 15:00 23:00 07:00 Intake Total 450 ml 360 ml Output Total 200 ml 380 ml Balance 250 ml -20 ml medications Current Medications Medications Dose Ordered Sig/Vargas Route Start Time Stop Time Status Last Admin Dose Admin Zinc Sulfate 220 mg DAILY PO 01/03/25 10:00 01/08/25 10:08 220 MG Ascorbic Acid 500 mg BID PO 01/02/25 22:00 01/08/25 10:09 500 MG Acetaminophen 650 mg Q6HP PRN PO 01/02/25 22:00 Diagnostic Test (Pha) 1 strip ACHS 01/02/25 22:00 01/08/25 11:48 1 STRIP Insulin Human Regular ACHS SC 01/02/25 22:00 01/08/25 06:32 3 UNITS Dextrose 50 ml UD PRN IV 01/02/25 22:00 Heparin Sodium (Porcine) 5,000 units Q12HR SC 01/03/25 10:00 01/07/25 23:40 5,000 UNITS Morphine Sulfate 2 mg Q6HPRN PRN IV 01/03/25 02:15 Cancel Mupirocin 1 applic BID EACHNOSTRI 01/03/25 22:00 01/08/25 21:59 01/08/25 10:09 1 APPLIC Morphine Sulfate 2 mg Q6HPRN PRN IV 01/04/25 09:30 Hold 01/06/25 00:23 2 MG Cefepime HCl 50 ml @ 12.5 mls/hr DAILY IV 01/06/25 10:00 01/08/25 10:08 12.5 MLS/HR Vancomycin HCl 0 ml @ 0 mls/hr UD IV 01/06/25 13:45 Acetaminophen/ Hydrocodone Bitart 1 tab Q6HP PRN PO 01/06/25 18:00 01/08/25 10:08 1 TAB Sodium Chloride 10 ml QSHIFT@10,22 IV 01/07/25 22:00 01/08/25 10:09 10 ML Ferrous Sulfate 325 mg DAILY PO 01/08/25 10:00 01/08/25 10:09 325 MG Examination General examination- awake, alert, conversant HEENT- PEERLA, no acute nasal discharge Cardiovascular- S1-S2 audible, rate and rhythm regular, no murmur Respiratory- CTAB, no wheeze or rhonchi Gastrointestinal-nontender, bowel sound+. Nondistended Musculoskeletal-no acute joint swelling or tenderness or redness Lower extremity- ADP bilaterally not palpable, wound of the left foot with gangrenous changes, wound on the right foot heel Neurological- cranial nerves intact, no acute dysarthria or dysphagia Psychiatry- denies depression or SI or HI Skin- no acute rash or purpura laboratory and microbiology Laboratory Tests 01/08/25 06:31 Test 01/08/25 06:31 Range/Units Serum Glucose 167 #H 74-106 mg/dL Microbiology Date/Time Source Procedure Growth Status 01/03/25 15:24 Foot Left Gram Stain - Final Resulted 01/03/25 15:24 Foot Left Anaerobic Culture - Preliminary Resulted 01/03/25 15:24 Aerobic Culture - Final Enterobacter cloacae Proteus mirabilis Enterococcus faecalis Resulted 01/02/25 16:40 Blood Blood Culture - Final NO GROWTH AFTER 5 DAYS OF INCUBATION. Complete Problem List/Assessment/Plan Problem List/Assessment/Plan Assessment and plan--patient refused SNF for IV antibiotic. Patient with a history of substance abuse, UDS positive for amphetamine. Patient prefers alternative choice of oral antibiotic instead of IV antibiotic and outcome of the oral versus IV antibiotic was discussed in presence of SEVERO Avendano with the patient and patient verbalized understanding. Plan is to discharge patient with oral antibiotic and home health for wound care with a wound VAC. # Sepsis due to Bilateral foot ulcers with cellulitis and probable osteomyelitis #Bilateral foot ulcers with cellulitis and Osteomyelitis # PAD #Diabetic foot ulcer #Lactic acidosis # neutrophilic leukocytosis -Wound culture, Blood culture, MRSA screening ordered -Doppler study of the lower extremity revealed peripheral arterial disease.Greater than 75% stenosis of the right dorsalis pedis.Nonvisualization of the right posterior tibial artery and left dorsalis pedis. Bilateral monophasic arterial waveforms are suggestive of underlying peripheral arterial disease. -CT left foot shows soft tissue gas, stranding, and swelling about the plantar aspect of the forefoot. -wound culture revealed Enterococcus faecalis, Enterobacter Colace, Proteus mirabilis -continue IV antibiotic cefepime and vancomycin as prescribed. -patient refused SNF for IV antibiotic. Patient with a history of substance abuse, UDS positive for amphetamine. Patient prefers alternative choice of oral antibiotic instead of IV antibiotic and outcome of the oral versus IV antibiotic was discussed in presence of SEVERO Avendano with the patient and patient verbalized understanding. --wound VAC in the left foot -plan is to discharge patient with a p.o. antibiotic with a home health for wound care with a wound VAC. #History of liver abscess #Acute gastroenteritis #Transaminitis with elevated ALP -Labs showed neutrophilic leukocytosis -Ultrasound liver shows stent in the common bile duct. Gas is seen in the left hepatic lobe, which may be referable to pneumobilia -continue current antibiotic -monitor CMP # hypokalemia-replenished -monitor BMP # acute gastroenteritis -continue current management #Normocytic normochromic anemia, likely due to anemia of chronic disease Low iron, TIBC and% saturation. Normal vitamin B12 and increased retic count -continue ferrous sulfate as per #ESRD on hemodialysis #Hypovolemic Hyponatremia -nephrology on board -continue hemodialysis as per Nephrology recommendation -monitor CMP #Diabetes mellitus type 2 with Hyperglycemia -Sliding scale insulin A1c 5.4 -Monitor blood glucose -Diabetes education -diabetic diet #Polysubstance abuse -Toxicology screen -positive for amphetamine -counseled patient about the effect of substance abuse on health Goals of care, Code status ; discussed with >15 minutes PUD prophylaxis: Pantoprazole DVT prophylaxis: Heparin Plan discussed with Dr. Low, nursing staff, Total time spent on patient evaluation, chart review, assessment and plan, discussion discussion >35 minutes Plan discussed with: Patient, Other (RN) Dietary Evaluation Review Comments: Nutrition Recommendation: 1) [facility] + renal standard diet 2) Nephro-tila 1 tab daily 3) Kristopher 1 pk & Pro-stat 1 pk daily 4) Monitor NPO status, lab values, weight trend, and I/O Expected Outcomes/Goals: To meet >75% estimated needs Wound to improve Fu 2-3 days Date of Service: Jan 08, 2025 Billing Provider: CHEYENNE LOW MD Common Visit Codes: [id number] INP/OBS CARE(HIGH) TAE AWAD RESIDENT Jan 08, 2025 12:39 CHEYENNE LOW MD Jan 08, 2025 18:25
[2025-01-09 05:00] VITALS: BP 141/67; PULSE 79; RESP 17; TEMP 97.2; O2SAT 98
[2025-01-09] MEDS: SODIUM CHL 0.9% 1000 ML BAG XX ONE (07:00)
[2025-01-09 07:14] LABS: Anion Gap 9 (5-15); Carbon Dioxide 21 mmol/L (20-31); Chloride 106 mmol/L (98-107); Potassium 4.9 mmol/L (3.5-5.1); Sodium 136 mmol/L (136-145)
[2025-01-09 07:18] LABS: Calcium 8.2 mg/dL (8.7-10.4)
[2025-01-09 07:20] LABS: BUN/Creatinine Ratio 5.9 (10.0-20.0); Blood Urea Nitrogen 20 mg/dL (9-23)
[2025-01-09 07:21] LABS: Magnesium 1.9 mg/dL (1.6-2.6)
[2025-01-09 07:22] LABS: Glucose 149 mg/dL (74-106)
[2025-01-09 08:00] VITALS: PULSE 72; PULSE 81; RESP 18
[2025-01-09 09:00] VITALS: BP 143/85; PULSE 80; RESP 18; TEMP 97.5; O2SAT 100
[2025-01-09] MEDS ORDERED: LEVO500T91 PO ×2 (09:59)
[2025-01-09] MEDS ORDERED: LINE1TAB6 PO (09:59)
--- NOTE | 2025-01-09 10:37 | DVHDSRES ---
Discharge Summary Date of Admission Resident Creating Document: TAE AWAD RESIDENT Jan 02, 2025 at 21:51 Date of Discharge: Jan 09, 2025 Admitting Diagnosis Sepsis due to left foot osteomyelitis Labs/Diagnostic Data: Laboratory Results Test 01/09/25 06:08 01/09/25 06:05 01/08/25 06:31 01/07/25 20:10 POC Glucose 150 mg/dl (70-106) Sodium Level 136 mmol/L (136-145) Potassium Level 4.9 mmol/L (3.5-5.1) Chloride Level 106 mmol/L (98-107) Carbon Dioxide Level 21 mmol/L (20-31) Anion Gap 9 (5-15) Blood Urea Nitrogen 20 mg/dL (9-23) Creatinine 3.39 mg/dL (0.700-1.30) Glomerular Filtration Rate Calc 21 mL/min (>90) BUN/Creatinine Ratio 5.9 (10.0-20.0) Serum Glucose 149 mg/dL (74-106) Calcium Level 8.2 mg/dL (8.7-10.4) Magnesium Level 1.9 mg/dL (1.6-2.6) Random Vancomycin Level 18.0 ug/mL (5-10) White Blood Count 9.3 10^3/uL (4.4-10.8) Red Blood Count 2.29 10^6/uL (4.5-5.90) Hemoglobin 7.5 g/dL (13.5-17.5) Hematocrit 22.6 % (41.0-53.0) Mean Corpuscular Volume 98.7 fL (80.0-100.0) Mean Corpuscular Hemoglobin 32.6 pg (28.0-32.0) Mean Corpuscular Hemoglobin Concent 33.0 g/dL (32.0-36.0) Red Cell Distribution Width 15.2 % (11.8-14.3) Platelet Count 193 10^3/uL (140-450) Mean Platelet Volume 7.3 fL (6.9-10.8) Neutrophils (%) (Auto) 69.3 % (37.0-80.0) Lymphocytes (%) (Auto) 16.4 % (10.0-50.0) Monocytes (%) (Auto) 5.3 % (0.0-12.0) Eosinophils (%) (Auto) 5.8 % (0.0-7.0) Basophils (%) (Auto) 3.2 % (0.0-2.0) Neutrophils # (Auto) 6.5 10 ^3/uL (1.6-8.6) Lymphocytes # (Auto) 1.5 10 ^3/uL (0.4-5.4) Monocytes # (Auto) 0.5 10 ^3/uL (0-1.3) Eosinophils # (Auto) 0.5 10 ^3/uL (0-0.8) Basophils # (Auto) 0.3 10 ^3/uL (0-0.2) Nucleated Red Blood Cells 0.0 % Stool for White Cells None seen Test 01/06/25 04:35 01/05/25 06:14 01/03/25 13:00 01/03/25 10:22 Prothrombin Time 11.0 sec (9.3-11.8) Prothrombin Time INR 1.04 (0.9-1.15) Activated Partial Thromboplast Time 34.7 SEC (24.5-34.5) Erythrocyte Sedimentation Rate 72 mm/hr (0-20) Total Bilirubin 3.2 mg/dL (0.2-1.0) Aspartate Amino Transferase (AST) 23 U/L (13-40) Alanine Aminotransferase (ALT) 9 U/L (7-40) Alkaline Phosphatase 510 U/L (46-116) Total Protein 5.8 g/dL (5.7-8.2) Albumin 2.7 g/dL (3.2-4.8) Phosphorus Level 5.0 mg/dL (2.4-5.1) Hepatitis B Surface Antigen Negative (Negative) Hepatitis C Antibody Negative (Negative) Test 01/03/25 00:00 01/02/25 22:47 01/02/25 21:58 01/02/25 20:47 Urine Color Yellow (Yellow) Urine Clarity Clear (Clear) Urine pH 6.0 (5.0-9.0) Urine Specific [place] 1.011 (1.001-1.035) Urine Protein 2+ (Negative) Urine Ketones Negative (Negative) Urine Blood 1+ /uL (Negative) Urine Nitrite Negative (Negative) Urine Bilirubin Negative (Negative) Urine Urobilinogen Normal mg/dL (Negative) Urine Leukocyte Esterase Negative /uL (Negative) Urine RBC 6 /hpf (0 - 3) Urine Microscopic WBC 4 /HPF (0-3) Urine Squamous Epithelial Cells Few /hpf (<5) Urine Bacteria None seen /hpf (None Seen) Urine Glucose 4+ mg/dL (Normal) Urine Opiates Screen Neg (NEGATIVE) Urine Fentanyl Screen Neg (NEGATIVE) Urine Barbiturates Screen Neg (NEGATIVE) Urine Phencyclidine Screen Neg (NEGATIVE) Urine Amphetamines Screen Pos (NEGATIVE) Urine Benzodiazepines Screen Neg (NEGATIVE) Urine Cocaine Screen Neg (NEGATIVE) Urine Cannabinoids Screen Neg (NEGATIVE) Reticulocyte Count (auto) 4.13 % (0.5-1.5) Influenza Type A Antigen Negative (Negative) Influenza Type B Antigen Negative (Negative) SARS-CoV-2 Antigen (Rapid) Negative (NEGATIVE) Lactic Acid Level 1.8 mmol/L (0.4-2.0) Test 01/02/25 18:28 01/02/25 15:18 Hemoglobin A1c 5.4 % A1C (<5.7) Serum Osmolality 301 mOsm/kg (278-298) Ferritin 20.2 ng/mL (22-322) Troponin I High Sensitivity 7 ng/L (</=54) C-Reactive Protein High Sensitivity 19.47 mg/dL (<1.0) Triglycerides Level 137 mg/dL (< 150) Cholesterol Level 141 mg/dL (< 200) LDL Cholesterol 85 mg/dL (< 100) HDL Cholesterol 37 mg/dL (40-59) Lipase 41 U/L (12-53) Vitamin B12 Level 1072 pg/mL (211-911) Vitamin D 25-Hydroxy 32.0 ng/mL (30.0-100) Folic Acid 13.14 ng/mL (>5.38) Thyroid Stimulating Hormone (TSH) 4.95 uIU/mL (0.55-4.78) Haptoglobin 366 mg/dL (29-370) Iron Level 30 ug/dL (65-175) Total Iron Binding Capacity 159 ug/dL (250-425) Percent Iron Saturation 18.9 % (20-55) Other Laboratory Tests 01/09/25 06:05 01/08/25 06:31 Brief Hx & Hospital Course: Patient is 54-year-old male with past medical history of diabetes mellitus, ESRD on dialysis (M, W, F), GERD, liver abscess, presented to the ER for worsening left foot ulcer. Patient went for appointment with Dr. Thornton, where he was informed that has foot ulcers infected and was sent to the ER. Patient complained of worsening pain in foot, which he 1st noticed 1 month ago. He was hospitalized for 1 month at the [facility] for a liver abscess, discharged with no antibiotics nor home medication. He also complained of diarrhea since last 2 weeks, reports loose, watery, runny diarrhea, 6-10 times daily, no blood seen. Patient's lab workup revealed leukocytosis with WBC 18.2, anemia with a hemoglobin 8.2, hypokalemia potassium 2.5, increased anion gap 19, serum creatinine 4.05, GFR 17, BUN 33, lactic acidosis with lactic acid 2.4, 30, ferritin 20.2, TIBC 159, UDS positive for amphetamine. Patient tested negative for influenza type a and B, COVID-19, hepatitis-B surface antigen, hepatitis-C antibody. CT left foot revealed- Findings as above suggestive of infectious / inflammatory process involving the plantar aspect of the foot. No definite osseous erosion, though MRI would be more sensitive for osteomyelitis as clinically indicated. Necrotizing fasciitis cannot be excluded on the basis of CT. Ultrasound of the liver revealed- Prior cholecystectomy with stent seen in the common bile duct. Gas is seen in the left hepatic lobe, which may be referable to pneumobilia, though portal venous gas cannot be excluded. Arterial Doppler of the bilateral lower extremity revealed-Greater than 75% stenosis of the right dorsalis pedis based on peak systolic velocity criteria. Nonvisualization of the right posterior tibial artery and left dorsalis pedis. Bilateral monophasic arterial waveforms are suggestive of underlying peripheral arterial disease. Patient was initially treated with the IV antibiotic Zosyn and vancomycin for left foot wound infection, abscess, osteomyelitis. Patient's dialysis during hospital course. Patient was followed by lead nurse at hospital. Patient had incision and drainage by Podiatry Dr. Wynn and later on wound closure. Wound culture revealed Enterobacter Colace and Proteus mirabilis, switched to IV antibiotic cefepime. Plan was to discharge patient to SNF for IV antibiotic but patient refused. Patient was advised about the efficacy of IV versus p.o. antibiotic for osteomyelitis. Patient's preferred to be on oral antibiotic rather than IV. Patient verbalized understanding the efficacy of oral versus IV antibiotic. Patient had been followed by lead nurse during hospital course had hemodialysis. Patient had a scheduled for hemodialysis today before discharge but patient refused, patient is awake and alert and oriented. Patient was explained the consequences of missing dialysis and patient verbalized understanding. Patient is being discharged home with the home health for wound care and also with the oral antibiotic levofloxacin 750 mg p.o. daily for 5 days then 500 mg p.o. every 48 hours for 30 more days, Zyvox 600 mg p.o. b.i.d. for 35 days. Patient's meds were sent to the pharmacy electronically. Patient was advised to follow up at the discharge clinic in 1 week, also to follow up with the primary care physician in 1-2 weeks, follow up with the lead nurse in 2-3 weeks and follow up with the Podiatry Dr. Wynn in 1 week. Patient was hemodynamically stable on discharge. Operations or Procedures Patient: OLEGARIO HARDIN Acct: [id number] : 1970 Loc: [facility] Age/Sex: 54/M Room: [facility] / Bed: A Attending Phy: TAE AWAD RESIDENT Operative Report - 2 Report Details Date: 01/05/25 Preop Diagnosis: 1. Left foot osteomyelitis 2. Left foot abscess 3. Left foot cellulitis 4. Left foot diabetic ulcer Postop Diagnosis: Same as preop Surgeon: Olegario Thornton MD Anesthesiologist: See anesthesia Anesthesia: Mac Consent: The patient was informed of the risks and benefits of the procedure. These include but are not limited to complications of anesthesia, postoperative infection, incomplete relief of symptoms, recurrence of symptoms, damage to blood vessels, nerves and tendons, deep venous thrombosis, pulmonary embolism and possible need for repeat surgery in the future. Complications: None Estimated Blood Loss: Minimal Fluids: See anesthesia Findings: Consistent with diagnosis Indications for Surgery: Worsening foot wound Name of Procedure Performed 1. Left foot I*D to bone (89992) 2. Left foot delayed closure (27279) Procedure Details Procedure Details: PRE-PROCEDURE INFORMATION: In the pre-op holding area, the extremity to be operated on was clearly marked and the patient verified correct laterality of the marking. The patient was transferred to the OR table and placed in a supine position. A timeout was performed in which identification of the correct patient, procedure, location, and materials was done. The left foot and leg were prepped and draped in normal sterile fashion. DESCRIPTION OF PROCEDURE: Attention was directed to the left where area of fluctuance was noted. An incision was made over this area and was deepened through blunt dissection. The incision was deepened to the level of abscess and bone. Care was taken to the dissection to avoid any neurovascular and tendinous structures. The incision was deepened to the bone, and the abscess appeared to be purulent fluid consistent with pus. The cortices of the bone was then removed with rongeur an all necrotic tissue. After the abscess was drained, the area was irrigated with 3 L normal saline using cysto tubing. A delayed closure was then performed using 2-0 nylon after was deemed appropriate with no longer concern for infection. Unable to close the entire way as significant tissue loss. POSTOPERATIVE INFORMATION: The patient tolerated the above noted procedure and anesthesia well and was transferred to the PACU with vital signs stable, and vascular status intact with capillary refill intact to all digits. Patient will need 6 weeks of IV antibiotics. Patient will need to have a wound VAC for the significant tissue loss. If we can get that established inpatient or outpatient. Patient should follow up with me in 1 week. Condition Good Disposition 2 Still a Patient Visit Coding Podiatry Date of Service if different f: Jan 05, 2025 Billing Provider: OLEGARIO THORNTON DPM Podiatry Common Visit Codes: PROCEDURE ONLY OLEGARIO THORNTON DPM Jan 05, 2025 12:38 DICTATED BY:OLEGARIO THORNTON DPM DICTATED DATE/TIME:01/05/25 1238 ELECTRONICALLY SIGNED BY:OLEGARIO THORNTON DPM 01/05/25 1238 ELECTRONICALLY CO-SIGNED BY: Patient: OLEGARIO HARDIN Acct: [id number] : 1970 Loc: [facility] Age/Sex: 54/M [id number] Progress Note Date Seen: Jan 04, 2025 Resident Creating Document: ROSIE CENTENO RESIDENT Medical Necessity Reason Pt with a Central, PICC or Fol: No Subjective Review of Systems Patient was seen and examined on the bedside. He is alert oriented x3. Complaint of generalized weakness and left foot pain. S/P I&D of left foot day 1. Patient is clear for PICC line from nephrology Objective vital signs Vital Sign Date Time Temp Pulse Resp B/P (MAP) Pulse Ox O2 Delivery O2 Flow Rate FiO2 01/04/25 17:13 88 18 130/67 01/04/25 16:48 97.8 100 97.8 01/04/25 07:57 Room Air* 0 21 Total Intake and Output 01/03/25 01/03/25 01/04/25 15:00 23:00 07:00 Intake Total 300 ml 100 ml 300 ml Output Total 700 ml 1600 ml Balance 300 ml -600 ml -1300 ml medications Current Medications Medications Dose Ordered Sig/Vargas Route Start Time Stop Time Status Last Admin Dose Admin Zinc Sulfate 220 mg DAILY PO 01/03/25 10:00 01/04/25 09:06 220 MG Ascorbic Acid 500 mg BID PO 01/02/25 22:00 01/04/25 09:06 500 MG Acetaminophen 650 mg Q6HP PRN PO 01/02/25 22:00 Piperacillin Sod/ Tazobactam Sod 100 ml @ 25 mls/hr Q12H IV 01/03/25 01:00 01/04/25 12:34 25 MLS/HR Vancomycin HCl 0 ml @ 0 mls/hr UD IV 01/02/25 22:00 Diagnostic Test (Pha) 1 strip ACHS 01/02/25 22:00 01/04/25 16:31 1 STRIP Insulin Human Regular ACHS SC 01/02/25 22:00 01/04/25 10:32 3 UNITS Dextrose 50 ml UD PRN IV 01/02/25 22:00 Heparin Sodium (Porcine) 5,000 units Q12HR SC 01/03/25 10:00 01/04/25 09:09 5,000 UNITS Morphine Sulfate 2 mg Q6HPRN PRN IV 01/03/25 02:15 Cancel Mupirocin 1 applic BID EACHNOSTRI 01/03/25 22:00 01/08/25 21:59 01/04/25 09:06 1 APPLIC Morphine Sulfate 2 mg Q6HPRN PRN IV 01/04/25 09:30 01/04/25 17:13 2 MG Magnesium Sulfate/ Dextrose 100 ml @ 100 mls/hr Q1HR IV 01/04/25 18:00 01/04/25 19:59 01/04/25 17:37 100 MLS/HR Examination Physical examination: General Appearance: Alert, Oriented X3, Cooperative, No acute distress HEENT: Atraumatic, PERRLA, EOMI, Mucous membrane moist/pink Respiratory: Tunnel catheter on the right side of the chest, Clear to auscultation, Normal air movement Cardiovascular: Regular rate, Normal S1, Normal S2, No murmurs, no chest wall tenderness Abdominal: Normal bowel sounds, Soft, No tenderness, No hepatospenomegaly, No masses Extremities: Ulcer on the plantar surface of the left foot covered with bandage, No clubbing, No cyanosis, No edema, Normal pulses, No tenderness/swelling Skin: No rashes, No breakdown, No significant lesion Neuro: Normal gait, Normal speech, Strength at 5/5 X4 ext, Normal tone, Sensation intact, Cranial nerves 3-12 NL, Reflexes 2+ Psych/Mental Status: Mental status NL, Mood NL laboratory and microbiology Laboratory Tests 01/04/25 14:25 01/04/25 10:42 Test 01/04/25 14:25 Range/Units Serum Glucose 109 H 74-106 mg/dL Microbiology Date/Time Source Procedure Growth Status 01/03/25 15:24 Foot Left Gram Stain - Final Resulted 01/03/25 15:24 Foot Left Anaerobic Culture - Preliminary Resulted 01/03/25 15:24 Foot Left Aerobic Culture - Preliminary Resulted 01/02/25 16:40 Blood Blood Culture - Preliminary NO GROWTH AFTER 48 HOURS OF INCUBATION. Resulted Problem List/Assessment/Plan Problem List/Assessment/Plan Assessment and plan: # ESRD on hemodialysis # Hypokalemia # Diabetic ulcer of the left foot # Sepsis due to above # Peripheral artery disease # Nicotine dependence # Methamphetamine abuse disorder Plan: - Scheduled for hemodialysis today - Replaced potassium - S/P I&D of left foot day 1 - Continue IV antibiotics and other management as per primary - Counseled patient regarding quit smoking, drug abuse and rehabilitation - Strict I&O - Monitor BMP Thank you so much for the opportunity to consult on your patient. Nephro team will follow the patient. In case of any questions or concerns please feel free to reach out. Plan discussed with Dr. Courtney. The patient and caregiver team agreed to the plan. Addendum Patient seen and examined, plan discussed with resident. Agree with above, we will follow closely Plan discussed with: Patient, Other (RN) My Orders My Orders Orders - ROSIE CENTENO RESIDENT Procedure Category Date Status Time Communication Order ORDERS 01/04/25 Transmitted 14:03 Dietary Evaluation Review Comments: Nutrition Recommendation: 1) Advance to CCHO 75gm + renal standard diet 2) Nephro-tila 1 tab daily 3) Kristopher 1 pk & Pro-stat 1 pk daily 4) Monitor NPO status, lab values, weight trend, and I/O Expected Outcomes/Goals: To meet >75% estimated needs Wound to improve Fu 2-3 days ROSIE CENTENO Jan 04, 2025 17:50 MCKAY COURTNEY MD Jan 04, 2025 22:45 DICTATED BY:ROSIE CENTENO DICTATED DATE/TIME:01/04/251749 ELECTRONICALLY SIGNED BY:ROSIE CENTENO 01/04/251750 I was physically present for the diaz portions of the service provided to patient by ROSIE CENTENO I have reviewed the documentation, discussed the case with resident and agree with the resident's documentation except as noted. ELECTRONICALLY CO-SIGNED BY:MCKAY COURTNEY MD 01/04/25 2245 E/M VISIT CODING PERFORMED BY:MCKAY COURTNEY MD Patient: OLEGARIO HARDIN Acct: [id number] : 1970 Loc: [facility] Age/Sex: 54/M [facility] A Attending Phy: TAE AWAD RESIDENT Operative Report - 2 Report Details Date: 01/03/25 Preop Diagnosis: 1. Left foot osteomyelitis 2. Left foot abscess 3. Left foot cellulitis 4. Left foot diabetic ulcer Postop Diagnosis: Same as preop Surgeon: Olegario Thornton MD Anesthesiologist: See anesthesia Anesthesia: General Consent: The patient was informed of the risks and benefits of the procedure. These include but are not limited to complications of anesthesia, postoperative infection, incomplete relief of symptoms, recurrence of symptoms, damage to blood vessels, nerves and tendons, deep venous thrombosis, pulmonary embolism and possible need for repeat surgery in the future. Complications: None Estimated Blood Loss: Minimal Fluids: See anesthesia Findings: Consistent with the diagnosis Indications for Surgery: Worsening foot ulcer Name of Procedure Performed 1. Left foot I*D to bone (34128) Procedure Details Procedure Details: PRE-PROCEDURE INFORMATION: In the pre-op holding area, the extremity to be operated on was clearly marked and the patient verified correct laterality of the marking. The patient was transferred to the OR table and placed in a supine position. A timeout was performed in which identification of the correct patient, procedure, location, and materials was done. The left foot and leg were prepped and draped in normal sterile fashion. DESCRIPTION OF PROCEDURE: Attention was directed to the left where area of fluctuance was noted. An incision was made over this area and was deepened through blunt dissection. The incision was deepened to the level of abscess and bone. Care was taken to the dissection to avoid any neurovascular and tendinous structures. The incision was deepened to the bone, and the abscess appeared to be purulent fluid consistent with pus. The cortices of the bone was then removed with rongeur an all necrotic tissue. After the abscess was drained, the area was irrigated with 3 L normal saline using cysto tubing. Deep cultures were then obtained from the wound. The area was then inspected and any areas of tracking, especially along the tendons were also drained. The wound was packed with Betadine-soaked gauze and we will need to be closed at a later date. POSTOPERATIVE INFORMATION: The patient tolerated the above noted procedure and anesthesia well and was transferred to the PACU with vital signs stable, and vascular status intact with capillary refill intact to all digits. Patient will need 6 weeks of IV antibiotics. Deep cultures were taken. Patient will return on Wednesday for possible closure if repeat I&D. Condition Good Disposition 2 Still a Patient Visit Coding Podiatry Date of Service if different f: Jan 03, 2025 Billing Provider: OLEGARIO THORNTON DPM Podiatry Common Visit Codes: PROCEDURE ONLY OLEGARIO THORNTON DPM Jan 03, 2025 15:26 DICTATED BY:OLEGARIO THORNTON DPM DICTATED DATE/TIME:01/03/25 1526 ELECTRONICALLY SIGNED BY:OLEGARIO THORNTON DPM 01/03/25 1526 ELECTRONICALLY CO-SIGNED BY: Condition at Discharge: Stable Final Diagnosis/Problems List # Sepsis due to Bilateral foot ulcers with cellulitis and probable osteomyelitis #Bilateral foot ulcers with cellulitis and Osteomyelitis # PAD #Diabetic foot ulcer #Lactic acidosis # neutrophilic leukocytosis #History of liver abscess #Acute gastroenteritis #Transaminitis with elevated ALP # hypokalemia-replenished # acute gastroenteritis, rule out C diff infection #Normocytic normochromic anemia, likely due to anemia of chronic disease #ESRD on hemodialysis #Hypovolemic Hyponatremia #Diabetes mellitus type 2 with Hyperglycemia #Polysubstance abuse Discharge Disposition: Senior Living Facility Discharge Instruct/Medications Diet: Consistent carbohydrate, Renal Follow Up/Referral: Please follow up with the discharge clinic in 1 week Please follow up with the 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 Wynn in 1 week Please follow up with the primary care physician in 1-2 weeks Please follow up with the lead nurse in 2-3 weeks Follow up with the EKG for QTC prolongation Monitor CBC, CMP, ESR, CRP every 1-2 weeks Medications: Levofloxacin 750 mg p.o. daily for 5 days Followed by levofloxacin 500 mg p.o. every 48 hours for 30 more days Zyvox 600 mg p.o. b.i.d. for 35 days Please resume other home medication Scheduled Levofloxacin Hemihydrate (Levofloxacin), 1.5 TAB PO DAILY Levofloxacin Hemihydrate (Levofloxacin), 1 TAB PO every 48 hours Linezolid (Zyvox), 600 MG PO BID Discharge Statement: "Patient was advised to return to the ER or call 911 if any headaches, dizziness, shortness of breath, chest pain, abdominal pain, bleeding, fevers, or worsening of medical condition. Patient was counseled about treatment plan, medications, possible side effects, patientverbalized understanding. All questions were answered to the best of my ability. This discharge took greater then 30 minutes in planning, reviewing documentation, counseling the patient, and discussing with other team members." ASSESSMENT ASSESSMENT Assessment # Sepsis due to Bilateral foot ulcers with cellulitis and probableosteomyelitis#Bilateral foot ulcers with cellulitis and Osteomyelitis# PAD#Diabetic foot ulcer#Lactic acidosis# neutrophilic leukocytosis#History of liver abscess#Acute gastroenteritis#Transaminitis with elevated ALP# hypokalemia-replenished# acute gastroenteritis, rule out C diff infection#Normocytic normochromic anemia, likely due to anemia of chronic disease#ESRD on hemodialysis#Hypovolemic Hyponatremia#Diabetes mellitus type 2 with Hyperglycemia#Polysubstance abuse Date of Service: Jan 09, 2025 Billing Provider: CHEYENNE GONZALEZ MD Common Visit Codes: [id number] DISCH DAY >30min TAE AWAD RESIDENT Jan 09, 2025 10:37 CHEYENNE GONZALEZ MD Jan 10, 2025 14:53
--- NOTE | 2025-01-09 12:04 | DVHPN2 ---
Progress Note Date Seen: Jan 09, 2025 Resident Creating Document: ROSIE CENTENO RESIDENT Medical Necessity Reason Pt with a Central, PICC or Fol: No Subjective Review of Systems Patient was seen and examined on the bedside. He is alert oriented x3. Complaint of generalized weakness and no other active complaint. Other Systems: Patient seen and examined by myself today in follow-up with the medicine resident, I agree with her assessment and plan Objective vital signs Vital Sign Date Time Temp Pulse Resp B/P (MAP) Pulse Ox O2 Delivery O2 Flow Rate FiO2 01/09/25 09:00 97.5 80 18 143/85 (104) 100 97.5 01/08/25 20:00 Room Air* 0 21 Total Intake and Output 01/08/25 01/08/25 01/09/25 15:00 23:00 07:00 Intake Total 50 ml 500 ml 800 ml Output Total 300 ml 880 ml Balance 50 ml 200 ml -80 ml medications Current Medications Medications Dose Ordered Sig/Vargas Route Start Time Stop Time Status Last Admin Dose Admin Zinc Sulfate 220 mg DAILY PO 01/03/25 10:00 01/08/25 10:08 220 MG Ascorbic Acid 500 mg BID PO 01/02/25 22:00 01/08/25 22:10 500 MG Acetaminophen 650 mg Q6HP PRN PO 01/02/25 22:00 Diagnostic Test (Pha) 1 strip ACHS 01/02/25 22:00 01/09/25 06:42 1 STRIP Insulin Human Regular ACHS SC 01/02/25 22:00 01/09/25 06:42 2 UNITS Dextrose 50 ml UD PRN IV 01/02/25 22:00 Heparin Sodium (Porcine) 5,000 units Q12HR SC 01/03/25 10:00 01/08/25 22:13 5,000 UNITS Morphine Sulfate 2 mg Q6HPRN PRN IV 01/03/25 02:15 Cancel Morphine Sulfate 2 mg Q6HPRN PRN IV 01/04/25 09:30 Hold 01/06/25 00:23 2 MG Cefepime HCl 50 ml @ 12.5 mls/hr DAILY IV 01/06/25 10:00 01/08/25 10:08 12.5 MLS/HR Vancomycin HCl 0 ml @ 0 mls/hr UD IV 01/06/25 13:45 Acetaminophen/ Hydrocodone Bitart 1 tab Q6HP PRN PO 01/06/25 18:00 01/09/25 06:06 1 TAB Sodium Chloride 10 ml QSHIFT@10,22 IV 01/07/25 22:00 01/08/25 22:09 10 ML Ferrous Sulfate 325 mg DAILY PO 01/08/25 10:00 01/08/25 10:09 325 MG Examination Physical examination: General Appearance: Alert, Oriented X3, Cooperative, No acute distress HEENT: Atraumatic, PERRLA, EOMI, Mucous membrane moist/pink Respiratory: Tunnel catheter on the right side of the chest, Clear to auscultation, Normal air movement Cardiovascular: Regular rate, Normal S1, Normal S2, No murmurs, no chest wall tenderness Abdominal: Normal bowel sounds, Soft, No tenderness, No hepatospenomegaly, No masses Extremities: Feet are covered with surgical dressing , No clubbing, No cyanosis, No edema, Normal pulses, No tenderness/swelling Skin: No rashes, No breakdown, No significant lesion Neuro: Normal speech, Strength at 5/5 X4 ext, Normal tone, Sensation intact, Cranial nerves 3-12 NL, Reflexes 2+ Psych/Mental Status: Mental status NL, Mood NL laboratory and microbiology Laboratory Tests 01/09/25 06:05 01/08/25 06:31 Test 01/09/25 06:05 Range/Units Serum Glucose 149 H 74-106 mg/dL Microbiology Date/Time Source Procedure Growth Status 01/03/25 15:24 Foot Left Gram Stain - Final Resulted 01/03/25 15:24 Foot Left Anaerobic Culture - Preliminary Resulted 01/03/25 15:24 Aerobic Culture - Final Enterobacter cloacae Proteus mirabilis Enterococcus faecalis Resulted 01/02/25 16:40 Blood Blood Culture - Final NO GROWTH AFTER 5 DAYS OF INCUBATION. Complete Labs and/or images reviewed: Labs reviewed by me, Image(s) reviewed by me Problem List/Assessment/Plan Problem List/Assessment/Plan Assessment and plan: # ESRD on hemodialysis # Hypokalemia resolved # Bilateral Diabetic ulcer of the feet # Sepsis due to above # Peripheral artery disease # Nicotine dependence # Methamphetamine abuse disorder # Anemia of chronic disease Plan: - Hemodialysis today - Epogen 14203 subQ 3 times weekly - Insulin sliding scale - S/P I&D of the feet - Continue IV antibiotics and other management as per primary - Counseled patient regarding quit smoking, drug abuse and rehabilitation - Strict I&O - Monitor BMP Thank you so much for the opportunity to consult on your patient. Nephro team will follow the patient. In case of any questions or concerns please feel free to reach out. Plan discussed with Dr. Mcconnell. The patient and caregiver team agreed to the plan. Plan discussed with: Patient, Other (RN) Dietary Evaluation Review Comments: Nutrition Recommendation: 1) Advance to [facility] 75gm + renal standard diet 2) Nephro-tila 1 tab daily 3) Kristopher 1 pk & Pro-stat 1 pk daily 4) Monitor NPO status, lab values, weight trend, and I/O Expected Outcomes/Goals: To meet >75% estimated needs Wound to improve Fu 2-3 days ROSIE CENTENO RESIDENT Jan 09, 2025 12:04 ADA MCCONNELL MD Jan 09, 2025 12:21
[2025-01-09] MEDS ORDERED: EPOETIN ALFA-EPBX 10,000 UNIT/1ML VIAL SC ONE (21:00)
== END 2025-01-09 13:50 | disposition home health service (06) | DRG 720 ==
LOC: ER 13:08 → OVERFLOW 21:51 → TELE-CENTR 01-03 03:52 → CENTRAL 01-04 10:30 → TELE-CENTR 01-04 17:58
PROVIDERS: ADMIT Student in an Organized Health Care Education/Training Program; ATTEND Student in an Organized Health Care Education/Training Program
PROC: 0Y9N0ZZ Drainage of Left Foot, Open Approach (ICD-10-PCS; 2025-01-03)
PROC: 5A1D70Z Performance of Urinary Filtration, Intermittent, Less than 6 Hours Per Day (ICD-10-PCS; 2025-01-04)
PROC: 0Y9N0ZZ Drainage of Left Foot, Open Approach (ICD-10-PCS; principal; 2025-01-05 12:05)
PROC: 5A1D70Z Performance of Urinary Filtration, Intermittent, Less than 6 Hours Per Day (ICD-10-PCS; 2025-01-06)
PROC: 02HV33Z Insertion of Infusion Device into Superior Vena Cava, Percutaneous Approach (ICD-10-PCS; 2025-01-07)
PROC: B548ZZA Ultrasonography of Superior Vena Cava, Guidance (ICD-10-PCS; 2025-01-07)
DX: A41.81 Sepsis due to Enterococcus (principal); M72.6 Necrotizing fasciitis; E87.20 Acidosis, unspecified; E43 Unspecified severe protein-calorie malnutrition; N18.6 End stage renal disease; D63.1 Anemia in chronic kidney disease; Z99.2 Dependence on renal dialysis; M86.8X7 Other osteomyelitis, ankle and foot; E86.1 Hypovolemia; L02.612 Cutaneous abscess of left foot; L03.115 Cellulitis of right lower limb; R65.20 Severe sepsis without septic shock; L03.116 Cellulitis of left lower limb; L97.529 Non-pressure chronic ulcer of other part of left foot with unspecified severity; K52.9 Noninfective gastroenteritis and colitis, unspecified; L97.519 Non-pressure chronic ulcer of other part of right foot with unspecified severity; E11.51 Type 2 diabetes mellitus with diabetic peripheral angiopathy without gangrene; E11.621 Type 2 diabetes mellitus with foot ulcer; E11.65 Type 2 diabetes mellitus with hyperglycemia; E87.6 Hypokalemia; F15.10 Other stimulant abuse, uncomplicated; E87.1 Hypo-osmolality and hyponatremia; F19.10 Other psychoactive substance abuse, uncomplicated; E11.22 Type 2 diabetes mellitus with diabetic chronic kidney disease; F17.200 Nicotine dependence, unspecified, uncomplicated; Z20.822 Contact with and (suspected) exposure to COVID-19; K21.9 Gastro-esophageal reflux disease without esophagitis; Z90.49 Acquired absence of other specified parts of digestive tract; Z95.820 Peripheral vascular angioplasty status with implants and grafts; Z79.899 Other long term (current) drug therapy; Z68.1 Body mass index [BMI] 19.9 or less, adult
CPT/HCPCS: 36415; 36569; 71045; 73700; 76705; 76937; 80048; 80053; 80061; 80202; 80307; 81001; 82306; 82607; 82728; 82746; 82962; 83010; 83036; 83540; 83550; 83605; 83690; 83735; 83930; 84100; 84132; 84443; 84484; 85025; 85045; 85048; 85610; 85652; 85730; 86141; 86803; 86850; 86900; 86901; 87040; 87070; 87075; 87076; 87077; 87081; 87186; 87205; 87340; 87426; 87804; 90935; 93005; 93925; 96365; 99291; 99292; G0378; J1815; J2250; J2405; J2470; J2543; J2704; J3480; J3490; P9047